=== PATIENT | female | born 1955 | race Two or more races ===

== ENCOUNTER 2017-01-22 05:01 | Emergency (ER) | payer SELFPAY ==
[~2017-01-22] VITALS: Ht 162.6 cm; Wt 68.0 kg
[2017-01-22 09:27] VITALS: BP 101/68
== END 2017-01-22 08:17 | disposition home or self-care (01) ==
LOC: EDBD 05:01 → ER 05:15
DX: F41.9 Anxiety disorder, unspecified (principal); G47.00 Insomnia, unspecified; Z90.49 Acquired absence of other specified parts of digestive tract

== ENCOUNTER 2019-05-19 10:21 | Emergency (ER) | payer MEDICAID, OTHER ==
[~2019-05-19] VITALS: Ht 160 cm; Wt 63.5 kg
[2019-05-19 11:08] LABS: Basophils # (auto) 0.1 uL; Basophils % (auto) 0.6 % (0.0-2.0); Eosinophils # (auto) 0.3 uL; Eosinophils % (auto) 4.1 % (0.0-7.0); Hematocrit 46.3 % (36.0-46.0); Hemoglobin 15.6 g/dL (12.2-16.2); Lymphocytes # (auto) 1.2 uL; Lymphocytes % (auto) 13.8 % (10.0-50.0); Mean Corpuscular Hemoglobin 31.8 pg (28.0-32.0); Mean Corpuscular Hgb Conc. 33.8 g/dL (32.0-36.0); Mean Corpuscular Volume 94.2 fL (80.0-100.0); Monocytes # (auto) 0.5 uL; Monocytes % (auto) 5.8 % (0.0-12.0); Neutrophils # (auto) 6.4 uL; Neutrophils % (auto) 75.7 % (37.0-80.0); Platelet Count (auto) 223 10^3/uL (140-450); Red Blood Cells 4.91 10^6/uL (4.0-5.20); Red Cell Distribution Width 13.9 % (11.8-14.3); White Blood Cell 8.4 10^3/uL (4.4-10.8)
[2019-05-19 11:25] LABS: INR 1.05 (0.9-1.15); Partial Thromboplastin Time 28.7 sec (23.64-32.05)
[2019-05-19 11:26] LABS: Albumin 3.9 g/dL (3.4-5.0); Anion Gap 6 (5-15); Blood Urea Nitrogen 15 mg/dL (7-18); Calcium 9.7 mg/dL (8.5-10.1); Carbon Dioxide 26 mmol/L (21-32); Chloride 108 mmol/L (98-107); Glucose 100 mg/dL (74-106); Magnesium 2.8 mg/dL (1.6-2.6); Potassium 4.5 mmol/L (3.5-5.1); Salicylate < 1.7 mg/dL (2.8-20.0); Sodium 140 mmol/L (136-145)
[2019-05-19 11:33] LABS: Alanine Aminotransferase 57 U/L (13-56); Alkaline Phosphatase 114 U/L (45-117); Aspartate Aminotransferase 29 U/L (15-37); BUN/Creatinine Ratio 17.2; Bilirubin, Total 0.4 mg/dL (0.2-1.0); Blood Alcohol < 3.0 mg/dL (0-5); GFR African American 85 mL/min; GFR Non-African American 70 mL/min; Total Protein 7.9 g/dL (6.4-8.2)
[2019-05-19 12:00] LABS: Acetaminophen < 2.0 ug/mL (10-30)
[2019-05-19] MEDS ORDERED: SODIUM CHLORIDE 0.9% 500 ML IV ONE (14:15)
[2019-05-19] MEDS ORDERED: PIPERACILLIN-TAZOB 3.375GM 100 ML IV ONE (14:15)
[2019-05-19 20:56] LABS: Urine Bacteria MANY /hpf (None Seen); Urine Blood Negative /uL (Negative); Urine Mucus MANY (None Seen); Urine Specific Gravity 1.023 (1.001-1.035); Urine WBC 80 /hpf (0 - 5)
[2019-05-19 20:57] LABS: Urine Hyaline Cast FEW /lpf (0 - 2)
[2019-05-19 21:02] LABS: Amphetamine Screen, Urine NEGATIVE (NEGATIVE); Barbiturate Scree,Urine NEGATIVE (NEGATIVE); Benzodiazephine Screen, Urine NEGATIVE (NEGATIVE); Cannabinoid Screen, Urine NEGATIVE (NEGATIVE); Cocaine Screen, Urine NEGATIVE (NEGATIVE); Opiate Scree,Urine NEGATIVE (NEGATIVE); Phencyclidine Screen, Urine NEGATIVE (NEGATIVE)
[2019-05-20 00:17] VITALS: BP 117/88
== END 2019-05-20 03:36 | disposition home or self-care (01) ==
LOC: EDBD 10:21 → ER 10:21
DX: R41.82 Altered mental status, unspecified (principal); J01.40 Acute pansinusitis, unspecified; R79.89 Other specified abnormal findings of blood chemistry; F41.9 Anxiety disorder, unspecified; F32.9 Major depressive disorder, single episode, unspecified; F25.9 Schizoaffective disorder, unspecified; Z90.49 Acquired absence of other specified parts of digestive tract
CPT/HCPCS: 36415; 70450; 76705; 80053; 80307; 80320; 80329; 81001; 82140; 83605; 83735; 84484; 85025; 85610; 85730; 93005; 96365; 96366; 99284; J2543

== ENCOUNTER 2020-01-11 21:42 | Emergency (ER) | payer MEDICAID ==
[~2020-01-11] VITALS: Ht 165.1 cm; Wt 74.8 kg
[2020-01-11] MEDS ORDERED: PANTOPRAZOLE 40 MG/10 ML VIAL INJ IV STA (22:29)
[2020-01-11] MEDS ORDERED: SODIUM CHLORIDE 0.9% 500 ML IVB ONE (22:30)
[2020-01-11] MEDS ORDERED: MORPHINE SULFATE 4 MG/ML SYR/VIAL IV ONE (22:30)
[2020-01-11] MEDS ORDERED: ONDANSETRON HCL 4 MG/2 ML VIAL IV ONE (22:30)
[2020-01-11 22:37] LABS: Basophils # (auto) 0.1 10 ^3/uL (0-0.2); Basophils % (auto) 1.2 % (0.0-2.0); Eosinophils # (auto) 0.2 10 ^3/uL (0-0.8); Eosinophils % (auto) 2.4 % (0.0-7.0); Hemoglobin 14.7 g/dL (12.2-16.2); Lymphocytes # (auto) 3.2 10 ^3/uL (0.4-5.4); Lymphocytes % (auto) 34.8 % (10.0-50.0); Mean Corpuscular Hemoglobin 32.5 pg (28.0-32.0); Mean Corpuscular Hgb Conc. 34.9 g/dL (32.0-36.0); Mean Corpuscular Volume 93.2 fL (80.0-100.0); Monocytes # (auto) 0.7 10 ^3/uL (0-1.3); Monocytes % (auto) 7.1 % (0.0-12.0); Neutrophils % (auto) 54.5 % (37.0-80.0); Platelet Count (auto) 210 10^3/uL (140-450); Red Cell Distribution Width 13.4 % (11.8-14.3); White Blood Cell 9.2 10^3/uL (4.4-10.8)
[2020-01-11 22:47] LABS: Urine Bacteria MANY /hpf (None Seen); Urine Blood TRACE /uL (Negative); Urine Specific Gravity 1.008 (1.001-1.035); Urine WBC 13 /hpf (0 - 5)
[2020-01-11 22:54] LABS: Alanine Aminotransferase 78 U/L (13-56); Albumin 3.8 g/dL (3.4-5.0); Amylase 85 U/L (25-115); Anion Gap 7 (5-15); Aspartate Aminotransferase 30 U/L (15-37); BUN/Creatinine Ratio 14.5; Blood Urea Nitrogen 11 mg/dL (7-18); Calcium 8.6 mg/dL (8.5-10.1); Carbon Dioxide 31 mmol/L (21-32); Chloride 107 mmol/L (98-107); GFR African American 99 mL/min; GFR Non-African American 82 mL/min; Glucose 94 mg/dL (74-106); Lipase 100 U/L (73-393); Magnesium 2.8 mg/dL (1.6-2.6); Sodium 145 mmol/L (136-145)
[2020-01-11 22:57] LABS: Potassium 2.7 mmol/L (3.5-5.1)
[2020-01-11 23:01] LABS: Alkaline Phosphatase 110 U/L (45-117); Bilirubin, Total 0.4 mg/dL (0.2-1.0); Total Protein 7.2 g/dL (6.4-8.2)
[2020-01-11 23:42] LABS: INR 0.97 (0.9-1.15); Partial Thromboplastin Time 24.2 sec (23.0-31.2)
[2020-01-12] MEDS ORDERED: SODIUM CHLORIDE 0.9% 1,000 ML IV ONE (00:45)
[2020-01-12] MEDS ORDERED: POTASSIUM EFFERVESENT TAB 25 MEQ GT ONE (00:45)
[2020-01-12] MEDS ORDERED: cefTRIAXone 1GM/50ML D5W 50 ML IV ONE (00:45)
[2020-01-12] MEDS ORDERED: POTASSIUM CHL 20MEQ/100ML 100 ML IV ONE (00:45)
[2020-01-12 03:00] VITALS: BP 134/77
== END 2020-01-12 04:57 | disposition home or self-care (01) ==
LOC: EDBD 21:42 → ER 21:49
DX: N39.0 Urinary tract infection, site not specified (principal); E87.6 Hypokalemia
CPT/HCPCS: 36415; 74176; 80053; 81001; 82150; 82962; 83605; 83690; 83735; 84484; 85025; 85610; 85730; 87040; 96361; 96365; 96366; 96368; 96375; 99285; C9113; J0696; J2270; J2405; J3480; J7030

== ENCOUNTER 2021-01-15 09:29 | Emergency (ER) | payer MEDICAID ==
[~2021-01-15] VITALS: Ht 160 cm; Wt 68.0 kg
[2021-01-15 10:14] LABS: Basophils # (auto) 0 10 ^3/uL (0-0.2); Basophils % (auto) 0.7 % (0.0-2.0); Eosinophils # (auto) 0.4 10 ^3/uL (0-0.8); Eosinophils % (auto) 7.2 % (0.0-7.0); Hematocrit 42.7 % (36.0-46.0); Hemoglobin 14.5 g/dL (12.2-16.2); Lymphocytes # (auto) 1.8 10 ^3/uL (0.4-5.4); Lymphocytes % (auto) 32.2 % (10.0-50.0); Mean Corpuscular Hemoglobin 32.1 pg (28.0-32.0); Mean Corpuscular Hgb Conc. 33.9 g/dL (32.0-36.0); Mean Corpuscular Volume 94.9 fL (80.0-100.0); Monocytes # (auto) 0.4 10 ^3/uL (0-1.3); Monocytes % (auto) 6.8 % (0.0-12.0); Neutrophils % (auto) 53.1 % (37.0-80.0); Nucleated Red Blood Cells % 0.1 %; Red Cell Distribution Width 12.7 % (11.8-14.3); White Blood Cell 5.6 10^3/uL (4.4-10.8)
[2021-01-15 10:15] LABS: Urine Bacteria NONE SEEN /hpf (None Seen); Urine Blood 1+ /uL (Negative); Urine Hyaline Cast FEW /lpf (0 - 2); Urine Mucus FEW (None Seen); Urine Specific Gravity 1.014 (1.001-1.035); Urine WBC 11 /hpf (0 - 5)
[2021-01-15 10:28] LABS: Chloride 112 mmol/L (98-107); Potassium 3.4 mmol/L (3.5-5.1); Sodium 143 mmol/L (136-145)
[2021-01-15 10:39] LABS: Alanine Aminotransferase 38 U/L (13-56); Albumin 3.8 g/dL (3.4-5.0); Alkaline Phosphatase 130 U/L (45-117); Amylase 66 U/L (25-115); Anion Gap 4 (5-15); Aspartate Aminotransferase 28 U/L (15-37); BUN/Creatinine Ratio 14.9; Bilirubin, Total 0.5 mg/dL (0.2-1.0); Blood Urea Nitrogen 13 mg/dL (7-18); Calcium 9.2 mg/dL (8.5-10.1); Carbon Dioxide 27 mmol/L (21-32); GFR African American 85 mL/min; GFR Non-African American 70 mL/min; Glucose 78 mg/dL (74-106); Lipase 186 U/L (73-393); Magnesium 2.5 mg/dL (1.6-2.6); Total Protein 7.7 g/dL (6.4-8.2)
[2021-01-15] MEDS ORDERED: LIDOCAINE VISCOUS 2% 15ML UD PO ONE (11:45)
[2021-01-15] MEDS ORDERED: FAMOTIDINE 20 MG TAB PO ONE (11:45)
[2021-01-15] MEDS ORDERED: cefTRIAXone SOD 1,000 MG VL IM ONE (11:45)
[2021-01-15] MEDS ORDERED: LIDOCAINE 2% (LOCAL ANESTH.) PF 5ml SDV ONE (12:14)
[2021-01-15] MEDS ORDERED: LIDOCAINE 2% (LOCAL ANESTH.) PF 5ml SDV IJ ONE (12:30)
[2021-01-15] MEDS ORDERED: IOHEXOL 300 MG/ML 100ML BOTTLE IJ ONE (14:00)
[2021-01-15 15:30] VITALS: BP 130/85
== END 2021-01-15 16:51 | disposition home or self-care (01) ==
LOC: ER 09:29
DX: N39.0 Urinary tract infection, site not specified (principal); J45.909 Unspecified asthma, uncomplicated; I10 Essential (primary) hypertension; Z90.49 Acquired absence of other specified parts of digestive tract
CPT/HCPCS: 36415; 74177; 80053; 81001; 82150; 83605; 83690; 83735; 84484; 85025; 87086; 93005; 96372; 99285; J0696; J2001; Q9967

== ENCOUNTER 2022-03-06 11:08 | Emergency (ER) | payer MEDICAID ==
[~2022-03-06] VITALS: Ht 157.5 cm; Wt 68.1 kg
[2022-03-06 12:18] VITALS: BP 129/80
[2022-03-06] MEDS ORDERED: methylPREDNISolone SOD SUCC 125 MG/2 ML VL IM ONE (12:45)
[2022-03-06] MEDS ORDERED: IPRATROPIUM BROM 0.5 MG/2.5ML INH SOL NEB ONE (12:45)
[2022-03-06] MEDS ORDERED: ALBUTEROL SULF 2.5 MG/0.5ML(0.5%) NEB SOLN NEB ONE (12:45)
[2022-03-06] MEDS ORDERED: ALBU108A5 IN (13:25)
[2022-03-06] MEDS ORDERED: AZIT250T8 PO (13:25)
[2022-03-06] MEDS ORDERED: METH4PAK PO (13:25)
== END 2022-03-06 13:36 | disposition home or self-care (01) ==
LOC: ER 11:13
DX: J45.901 Unspecified asthma with (acute) exacerbation (principal); I10 Essential (primary) hypertension; Z90.49 Acquired absence of other specified parts of digestive tract
CPT/HCPCS: 71046; 94640; 96372; 99283; J2930; J7644

== ENCOUNTER 2022-09-01 09:27 | Emergency (ER) | payer MEDICAID ==
[~2022-09-01] VITALS: Ht 162.6 cm; Wt 69.6 kg
[~2022-09-01 09:27] MED LIST: ALBU108A5 IN; AZIT250T8 PO; METH4PAK PO
[2022-09-01 10:36] LABS: Basophils # (auto) 0.1 10 ^3/uL (0-0.2); Basophils % (auto) 0.7 % (0.0-2.0); Eosinophils # (auto) 0.7 10 ^3/uL (0-0.8); Eosinophils % (auto) 7.6 % (0.0-7.0); Hematocrit 40.8 % (36.0-46.0); Hemoglobin 13.9 g/dL (12.2-16.2); Lymphocytes # (auto) 1.7 10 ^3/uL (0.4-5.4); Lymphocytes % (auto) 18.7 % (10.0-50.0); Mean Corpuscular Hemoglobin 31.6 pg (28.0-32.0); Mean Corpuscular Hgb Conc. 34.2 g/dL (32.0-36.0); Mean Corpuscular Volume 92.5 fL (80.0-100.0); Monocytes # (auto) 0.6 10 ^3/uL (0-1.3); Monocytes % (auto) 6.3 % (0.0-12.0); Neutrophils # (auto) 6.2 10 ^3/uL (1.6-8.6); Neutrophils % (auto) 66.7 % (37.0-80.0); Red Blood Cells 4.41 10^6/uL (4.0-5.20); Red Cell Distribution Width 13.9 % (11.8-14.3); White Blood Cell 9.2 10^3/uL (4.4-10.8)
[2022-09-01 11:00] LABS: Albumin 3.7 g/dL (3.4-5.0); BUN/Creatinine Ratio 16.5 (10.0-20.0); Calcium 8.9 mg/dL (8.5-10.1); Potassium 3.6 mmol/L (3.5-5.1)
[2022-09-01 11:11] LABS: Bilirubin, Total 0.6 mg/dL (0.2-1.0); Total Protein 7.8 g/dL (6.4-8.2)
[2022-09-01 12:00] LABS: Urine Bacteria FEW /hpf (None Seen); Urine Blood 1+ /uL (Negative); Urine Hyaline Cast FEW /lpf (0 - 2); Urine Mucus FEW (None Seen); Urine Specific Gravity 1.027 (1.001-1.035); Urine WBC 125 /hpf (0 - 5)
[2022-09-01] MEDS ORDERED: CIPR-173 PO (12:13)
[2022-09-01 12:48] VITALS: BP 125/87
== END 2022-09-01 12:51 | disposition home or self-care (01) ==
LOC: ER 09:27
DX: N39.0 Urinary tract infection, site not specified (principal); R10.2 Pelvic and perineal pain; F41.9 Anxiety disorder, unspecified; J45.909 Unspecified asthma, uncomplicated; F32.9 Major depressive disorder, single episode, unspecified; I10 Essential (primary) hypertension; Z90.49 Acquired absence of other specified parts of digestive tract
CPT/HCPCS: 36415; 74176; 80053; 81001; 85025

== ENCOUNTER 2022-10-18 08:42 | Emergency (ER) | payer MEDICAID ==
[~2022-10-18] VITALS: Ht 152.4 cm; Wt 69.0 kg
[~2022-10-18 08:42] MED LIST changes: +AZIT-81 PO; -AZIT250T8 PO; +CIPR-173 PO
[2022-10-18 09:28] LABS: Urine Bacteria MOD /hpf (None Seen); Urine Blood 2+ /uL (Negative); Urine Mucus FEW (None Seen); Urine Specific Gravity 1.024 (1.001-1.035); Urine WBC 53 /hpf (0 - 5)
[2022-10-18] MEDS ORDERED: ACETAMINOPHEN 500 MG TAB PO ONE (09:45)
[2022-10-18] MEDS ORDERED: ACET500T58 PO (10:30)
[2022-10-18] MEDS ORDERED: CEFP100T6 PO (10:30)
[2022-10-18] MEDS ORDERED: KETOROLAC TROMETH 30 MG/ML 1ML VIAL IV ONE (10:45)
[2022-10-18 11:05] VITALS: BP 118/82
[2022-10-18] MEDS ORDERED: HYDROcodone-ACET 5/325MG TAB PO ONE (11:30)
== END 2022-10-18 11:58 | disposition home or self-care (01) ==
LOC: ER 08:42
DX: N39.0 Urinary tract infection, site not specified (principal); F41.9 Anxiety disorder, unspecified; J45.909 Unspecified asthma, uncomplicated; F32.9 Major depressive disorder, single episode, unspecified; I10 Essential (primary) hypertension; Z90.49 Acquired absence of other specified parts of digestive tract; Z79.1 Long term (current) use of non-steroidal anti-inflammatories (NSAID); Z79.899 Other long term (current) drug therapy
CPT/HCPCS: 81001; 87086; 93005; 96374; 99284; J1885

== ENCOUNTER 2022-11-17 07:42 | Emergency (ER) | payer MEDICAID ==
[~2022-11-17] VITALS: Ht 149.9 cm; Wt 69.0 kg
[~2022-11-17 07:42] MED LIST changes: +ACET500T58 PO; +CEFP100T6 PO
[2022-11-17] MEDS ORDERED: DexAMETHasone SOD PHOS 10MG/1ML VIAL INJ IV ONE (08:00)
[2022-11-17 08:16] LABS: Basophils # (auto) 0 10 ^3/uL (0-0.2); Basophils % (auto) 0.7 % (0.0-2.0); Eosinophils # (auto) 0.5 10 ^3/uL (0-0.8); Eosinophils % (auto) 8.4 % (0.0-7.0); Hematocrit 41.9 % (36.0-46.0); Hemoglobin 14.1 g/dL (12.2-16.2); Lymphocytes # (auto) 2.3 10 ^3/uL (0.4-5.4); Lymphocytes % (auto) 38.1 % (10.0-50.0); Mean Corpuscular Hemoglobin 31.7 pg (28.0-32.0); Mean Corpuscular Hgb Conc. 33.8 g/dL (32.0-36.0); Monocytes # (auto) 0.3 10 ^3/uL (0-1.3); Neutrophils # (auto) 2.9 10 ^3/uL (1.6-8.6); Neutrophils % (auto) 47.8 % (37.0-80.0); Nucleated Red Blood Cells % 0.1 %; Red Blood Cells 4.46 10^6/uL (4.0-5.20); Red Cell Distribution Width 14.2 % (11.8-14.3); White Blood Cell 6.1 10^3/uL (4.4-10.8)
[2022-11-17 08:32] LABS: BUN/Creatinine Ratio 10.3 (10.0-20.0); Calcium 9.1 mg/dL (8.5-10.1); Potassium 3.3 mmol/L (3.5-5.1)
[2022-11-17 08:34] LABS: Bilirubin, Total 0.5 mg/dL (0.2-1.0); Total Protein 7.3 g/dL (6.4-8.2)
[2022-11-17] MEDS ORDERED: IPRATROPIUM BROM 0.5 MG/2.5ML INH SOL NEB ONE (08:45)
[2022-11-17] MEDS ORDERED: ALBUTEROL SULF 2.5 MG/0.5ML(0.5%) NEB SOLN NEB ONE (08:45)
[2022-11-17] MEDS ORDERED: IOHEXOL 350 MG/ML 100ML IJ ONE (08:46)
[2022-11-17] MEDS ORDERED: ONDANSETRON HCL 4 MG/2 ML VIAL IV ONE (10:00)
[2022-11-17] MEDS ORDERED: KETOROLAC TROMETH 30 MG/ML 1ML VIAL IV ONE (10:00)
[2022-11-17] MEDS ORDERED: PRED20TA2 PO (10:16)
[2022-11-17] MEDS ORDERED: LEVO500T91 PO (10:16)
[2022-11-17 10:53] LABS: Urine Bacteria FEW /hpf (None Seen); Urine Blood Negative /uL (Negative); Urine Specific Gravity 1.034 (1.001-1.035); Urine WBC 27 /hpf (0 - 5)
[2022-11-17 11:00] VITALS: BP 120/88; PULSE 88; RESP 18; TEMP 98.2; O2SAT 97
== END 2022-11-17 11:02 | disposition admitted as inpatient to this hospital (09) ==
LOC: ER 07:42
DX: J45.901 Unspecified asthma with (acute) exacerbation (principal); F41.9 Anxiety disorder, unspecified; J45.909 Unspecified asthma, uncomplicated; F32.9 Major depressive disorder, single episode, unspecified; Z79.899 Other long term (current) drug therapy; Z90.49 Acquired absence of other specified parts of digestive tract
CPT/HCPCS: 36415; 71045; 71275; 80053; 81001; 83880; 84484; 85025; 85379; 93005; 94640; 96374; 96375; 99285; J1100; J1885; J2405; J7644; Q9967

== ENCOUNTER 2022-12-24 09:21 | Emergency (ER) | payer MEDICAID ==
[~2022-12-24] VITALS: Ht 147.3 cm; Wt 67.2 kg
[~2022-12-24 09:21] MED LIST changes: +LEVO500T91 PO; +PRED20TA2 PO
[2022-12-24 10:02] LABS: Urine Bacteria NONE SEEN /hpf (None Seen); Urine Blood Negative /uL (Negative); Urine Clarity HAZY (Clear); Urine Color Yellow (Yellow); Urine Mucus FEW (None Seen); Urine Protein, UAD TRACE (Negative); Urine Specific Gravity 1.015 (1.001-1.035); Urine Urobilinogen Normal (Negative); Urine WBC 15 /hpf (0 - 5)
[2022-12-24 10:16] LABS: Basophils # (auto) 0 10 ^3/uL (0-0.2); Eosinophils # (auto) 0.2 10 ^3/uL (0-0.8); Eosinophils % (auto) 4.1 % (0.0-7.0); Hematocrit 43.3 % (36.0-46.0); Hemoglobin 14.7 g/dL (12.2-16.2); Lymphocytes % (auto) 45.8 % (10.0-50.0); Mean Corpuscular Hemoglobin 31.7 pg (28.0-32.0); Mean Corpuscular Hgb Conc. 34.1 g/dL (32.0-36.0); Monocytes # (auto) 0.3 10 ^3/uL (0-1.3); Monocytes % (auto) 7.8 % (0.0-12.0); Neutrophils # (auto) 1.8 10 ^3/uL (1.6-8.6); Neutrophils % (auto) 41.3 % (37.0-80.0); Nucleated Red Blood Cells % 0.1 %; Red Blood Cells 4.65 10^6/uL (4.0-5.20); Red Cell Distribution Width 13.9 % (11.8-14.3); White Blood Cell 4.3 10^3/uL (4.4-10.8)
[2022-12-24 10:28] LABS: Alanine Aminotransferase 36 U/L (7-40); Albumin 4.7 g/dL (3.2-4.8); Alkaline Phosphatase 99 U/L (46-116); Anion Gap 5.3 (5-15); Aspartate Aminotransferase 28 U/L (13-40); Blood Urea Nitrogen 9 mg/dL (9-23); Calcium 9.5 mg/dL (8.5-10.1); Carbon Dioxide 26.7 mmol/L (20-30); Chloride 109 mmol/L (98-107); Glucose 77 mg/dL (74-106); Lipase 52 U/L (12-53); Magnesium 2.3 mg/dL (1.6-2.6); Potassium 3.6 mmol/L (3.5-5.1); Sodium 141 mmol/L (136-145)
[2022-12-24 10:29] LABS: Bilirubin, Total 0.7 mg/dL (0.2-1.0); Total Protein 7.6 g/dL (5.7-8.2)
[2022-12-24] MEDS ORDERED: NITR-87 PO (11:02)
[2022-12-24] MEDS ORDERED: IBU600T PO (11:03)
[2022-12-24] MEDS ORDERED: cefTRIAXone SOD 1,000 MG VL IM ONE (11:15)
[2022-12-24 12:25] VITALS: BP 142/101; PULSE 83; RESP 16; O2SAT 98
== END 2022-12-24 13:33 | disposition home or self-care (01) ==
LOC: ER 09:21
DX: N39.0 Urinary tract infection, site not specified (principal); I10 Essential (primary) hypertension; J45.909 Unspecified asthma, uncomplicated; Z90.49 Acquired absence of other specified parts of digestive tract; Z79.2 Long term (current) use of antibiotics; Z79.899 Other long term (current) drug therapy
CPT/HCPCS: 36415; 74176; 80053; 81001; 83690; 83735; 85025; 96372; 99285; J0696

== ENCOUNTER 2023-06-10 08:51 | Emergency (ER) | payer MEDICAID ==
[~2023-06-10] VITALS: Ht 152.4 cm; Wt 70.8 kg
[~2023-06-10 08:51] MED LIST changes: +IBU600T PO; +IBUP1TAB5 PO; +NITR-87 PO; +OSEL75CA5 PO
[2023-06-10 09:13] VITALS: BP 114/78; PULSE 106; RESP 16; O2SAT 99
[2023-06-10 09:28] LABS: Urine Bacteria FEW /hpf (None Seen); Urine Blood 2+ /uL (Negative); Urine Clarity Clear (Clear); Urine Color Yellow (Yellow); Urine Protein, UAD TRACE (Negative); Urine Specific Gravity 1.011 (1.001-1.035); Urine Urobilinogen Normal (Negative); Urine WBC 14 /hpf (0 - 5)
[2023-06-10] MEDS ORDERED: ACET-1080 PO (09:57)
[2023-06-10] MEDS ORDERED: BACDST PO (09:57)
[2023-06-10 09:58] VITALS: TEMP 97.8
[2023-06-10] MEDS: cefTRIAXone SOD 1,000 MG VL IM ONE (09:58)
[2023-06-10] MEDS: ACETAMINOPHEN 500 MG TAB PO ONE (09:58)
== END 2023-06-10 10:11 | disposition home or self-care (01) ==
LOC: ER 08:51
DX: N39.0 Urinary tract infection, site not specified (principal); R07.89 Other chest pain; I10 Essential (primary) hypertension; J45.909 Unspecified asthma, uncomplicated; Z90.49 Acquired absence of other specified parts of digestive tract; Z79.1 Long term (current) use of non-steroidal anti-inflammatories (NSAID); Z79.2 Long term (current) use of antibiotics; Z79.899 Other long term (current) drug therapy
CPT/HCPCS: 71046; 81001; 96372; 99284; J0696

== ENCOUNTER 2023-09-15 10:27 | Emergency (ER) | payer MEDICAID ==
[~2023-09-15] VITALS: Ht 147.3 cm; Wt 66.8 kg
[~2023-09-15 10:27] MED LIST changes: +ACET-1080 PO; +AZIT-185 PO; -AZIT-81 PO; +BACDST PO
[2023-09-15 13:23] VITALS: BP 122/84; PULSE 81; RESP 16; TEMP 98.5; O2SAT 97
[2023-09-15] MEDS ORDERED: NABU-72 PO (14:18)
== END 2023-09-15 14:31 | disposition home or self-care (01) ==
LOC: ER 10:27
DX: M72.2 Plantar fascial fibromatosis (principal); M77.32 Calcaneal spur, left foot; F41.9 Anxiety disorder, unspecified; J45.909 Unspecified asthma, uncomplicated; F32.A Depression, unspecified; I10 Essential (primary) hypertension; Z79.899 Other long term (current) drug therapy; Z90.49 Acquired absence of other specified parts of digestive tract
CPT/HCPCS: 73630

== ENCOUNTER 2023-10-06 11:12 | Emergency (ER) | payer MEDICAID ==
[~2023-10-06] VITALS: Ht 121.9 cm; Wt 66.4 kg
[~2023-10-06 11:12] MED LIST changes: +NABU-72 PO
[2023-10-06 12:14] LABS: Urine Bacteria None Seen /hpf (None Seen)
[2023-10-06 12:47] LABS: Urine Amorphous Crystal FEW /hpf (None Seen); Urine Blood Negative /uL (Negative); Urine Clarity Ex.Turbid (Clear); Urine Color Light-Yellow (Yellow); Urine Protein, UAD 1+ (Negative); Urine Specific Gravity 1.018 (1.001-1.035); Urine Urobilinogen Normal (Negative); Urine WBC 46 /hpf (0 - 5); Urine pH 8.5 (5.0-9.0)
[2023-10-06 13:15] LABS: Basophils # (auto) 0 10 ^3/uL (0-0.2); Basophils % (auto) 0.7 % (0.0-2.0); Eosinophils # (auto) 0.5 10 ^3/uL (0-0.8); Eosinophils % (auto) 7.5 % (0.0-7.0); Hematocrit 41.9 % (36.0-46.0); Lymphocytes # (auto) 2.4 10 ^3/uL (0.4-5.4); Lymphocytes % (auto) 35.6 % (10.0-50.0); Mean Corpuscular Hemoglobin 31.8 pg (28.0-32.0); Mean Corpuscular Hgb Conc. 33.5 g/dL (32.0-36.0); Mean Corpuscular Volume 94.9 fL (80.0-100.0); Monocytes # (auto) 0.6 10 ^3/uL (0-1.3); Monocytes % (auto) 8.2 % (0.0-12.0); Neutrophils # (auto) 3.3 10 ^3/uL (1.6-8.6); Nucleated Red Blood Cells % 0.1 %; Red Blood Cells 4.41 10^6/uL (4.0-5.20); Red Cell Distribution Width 13.8 % (11.8-14.3); White Blood Cell 6.8 10^3/uL (4.4-10.8)
[2023-10-06 13:38] LABS: Alanine Aminotransferase 39 U/L (7-40); Albumin 4.5 g/dL (3.2-4.8); Alkaline Phosphatase 128 U/L (46-116); Anion Gap 7 (5-15); Aspartate Aminotransferase 33 U/L (13-40); BUN/Creatinine Ratio 16.9 (10.0-20.0); Bilirubin, Total 0.5 mg/dL (0.2-1.0); Blood Urea Nitrogen 13 mg/dL (9-23); Calcium 9.5 mg/dL (8.7-10.4); Carbon Dioxide 23 mmol/L (20-30); Chloride 111 mmol/L (98-107); Glucose 93 mg/dL (74-106); Lipase 42 U/L (12-53); Potassium 3.7 mmol/L (3.5-5.1); Sodium 141 mmol/L (136-145); Total Protein 7.3 g/dL (5.7-8.2)
[2023-10-06 15:49] VITALS: BP 132/93; PULSE 83; RESP 20; TEMP 97.3; O2SAT 99
== END 2023-10-06 16:01 | disposition home or self-care (01) ==
LOC: ER 11:15
DX: K76.89 Other specified diseases of liver (principal); N28.1 Cyst of kidney, acquired; J45.909 Unspecified asthma, uncomplicated
CPT/HCPCS: 36415; 71045; 74176; 80053; 81001; 83605; 83690; 84484; 85025

== ENCOUNTER 2023-12-17 17:39 | Inpatient (IN) | payer MEDICAID ==
[~2023-12-17] VITALS: Ht 152.4 cm; Wt 69.7 kg
[2023-12-17 18:31] LABS: Basophils # (auto) 0.1 10 ^3/uL (0-0.2); Basophils % (auto) 0.8 % (0.0-2.0); Eosinophils # (auto) 0.5 10 ^3/uL (0-0.8); Eosinophils % (auto) 7.1 % (0.0-7.0); Hematocrit 41.5 % (36.0-46.0); Hemoglobin 14.3 g/dL (12.2-16.2); Lymphocytes # (auto) 2.6 10 ^3/uL (0.4-5.4); Lymphocytes % (auto) 37.7 % (10.0-50.0); Mean Corpuscular Hemoglobin 32.4 pg (28.0-32.0); Mean Corpuscular Hgb Conc. 34.5 g/dL (32.0-36.0); Monocytes # (auto) 0.5 10 ^3/uL (0-1.3); Monocytes % (auto) 7.2 % (0.0-12.0); Neutrophils # (auto) 3.3 10 ^3/uL (1.6-8.6); Neutrophils % (auto) 47.2 % (37.0-80.0); Nucleated Red Blood Cells % 0.3 %; Platelet Count (auto) 182 10^3/uL (140-450); Red Blood Cells 4.42 10^6/uL (4.0-5.20); Red Cell Distribution Width 13.8 % (11.8-14.3)
[2023-12-17 18:47] LABS: Alanine Aminotransferase 54 U/L (7-40); Alkaline Phosphatase 134 U/L (46-116); Calcium 9.4 mg/dL (8.7-10.4); Carbon Dioxide 21 mmol/L (20-30); Chloride 111 mmol/L (98-107)
[2023-12-17 18:48] LABS: Albumin 4.5 g/dL (3.2-4.8); Anion Gap 10 (5-15); Aspartate Aminotransferase 42 U/L (13-40); BUN/Creatinine Ratio 21.5 (10.0-20.0); Bilirubin, Total 0.5 mg/dL (0.2-1.0); Blood Urea Nitrogen 17 mg/dL (9-23); Glucose 102 mg/dL (74-106); Lipase 53 U/L (12-53); Potassium 3.7 mmol/L (3.5-5.1); Sodium 142 mmol/L (136-145); Total Protein 7.2 g/dL (5.7-8.2)
[2023-12-17] MEDS ORDERED: MORPHINE SULFATE 4 MG/ML SYR/VIAL IM ONE (20:00)
[2023-12-17] MEDS: ONDANSETRON HCL 4 MG/2 ML VIAL IM ONE (20:00)
[2023-12-17] MEDS: HYDROcodone-ACET 5/325MG TAB PO ONE (20:45)
[2023-12-17 21:13] LABS: Urine Bacteria None Seen /hpf (None Seen)
[2023-12-17 21:28] LABS: Urine Amorphous Crystal FEW /hpf (None Seen); Urine Blood Negative /uL (Negative); Urine Clarity Turbid (Clear); Urine Color Light-Yellow (Yellow); Urine Protein, UAD Negative (Negative); Urine Urobilinogen Normal (Negative); Urine WBC 7 /hpf (0 - 5)
[2023-12-18] MEDS ORDERED: ONDANSETRON HCL 4 MG/2 ML VIAL IV PRN (01:00)
[2023-12-18] MEDS ORDERED: DOCUSATE SOD 100 MG CAP PO PRN ×2 (01:00→09:15)
[2023-12-18] MEDS ORDERED: IBUPROFEN 600 MG TAB PO PRN (01:00)
[2023-12-18] MEDS ORDERED: NITROGLYCERIN 0.4 MG SL TAB SL PRN (01:00)
[2023-12-18] MEDS ORDERED: MORPHINE SULFATE INJ 2 MG/ml SYRG IV PRN ×2 (01:00)
[2023-12-18] MEDS: SODIUM CHLORIDE 0.9% 1,000 ML IV SCH (01:20)
[2023-12-18] MEDS: HYDROcodone-ACET 5/325MG TAB PO PRN (02:43)
[2023-12-18 03:34] VITALS: BP 123/79; PULSE 80; RESP 18; TEMP 98; O2SAT 97
[2023-12-18 08:00] VITALS: PULSE 93; RESP 18; O2SAT 95
[2023-12-18 09:06] LABS: Basophils # (auto) 0.1 10 ^3/uL (0-0.2); Basophils % (auto) 0.7 % (0.0-2.0); Eosinophils # (auto) 0.6 10 ^3/uL (0-0.8); Eosinophils % (auto) 7.5 % (0.0-7.0); Hematocrit 42.8 % (36.0-46.0); Lymphocytes # (auto) 2.7 10 ^3/uL (0.4-5.4); Lymphocytes % (auto) 35.5 % (10.0-50.0); Mean Corpuscular Hemoglobin 32.6 pg (28.0-32.0); Mean Corpuscular Volume 93.2 fL (80.0-100.0); Monocytes # (auto) 0.5 10 ^3/uL (0-1.3); Monocytes % (auto) 7.1 % (0.0-12.0); Neutrophils # (auto) 3.7 10 ^3/uL (1.6-8.6); Neutrophils % (auto) 49.2 % (37.0-80.0); Nucleated Red Blood Cells % 0.1 %; Platelet Count (auto) 193 10^3/uL (140-450); Red Blood Cells 4.59 10^6/uL (4.0-5.20); Red Cell Distribution Width 13.7 % (11.8-14.3); White Blood Cell 7.6 10^3/uL (4.4-10.8)
[2023-12-18 09:19] LABS: INR 0.99 (0.9-1.15); Partial Thromboplastin Time 27.7 SEC (24.5-34.5); Prothrombin Time 10.5 sec (9.3-11.8)
[2023-12-18 09:23] LABS: Alanine Aminotransferase 47 U/L (7-40); Albumin 4.5 g/dL (3.2-4.8); Alkaline Phosphatase 132 U/L (46-116); Anion Gap 6 (5-15); Aspartate Aminotransferase 41 U/L (13-40); BUN/Creatinine Ratio 17.9 (10.0-20.0); Bilirubin, Total 0.8 mg/dL (0.2-1.0); Blood Alcohol < 3.0 mg/dL (<10); Blood Urea Nitrogen 12 mg/dL (9-23); Calcium 9.3 mg/dL (8.7-10.4); Carbon Dioxide 24 mmol/L (20-30); Chloride 109 mmol/L (98-107); Glucose 93 mg/dL (74-106); Magnesium 2.1 mg/dL (1.6-2.6); Potassium 3.6 mmol/L (3.5-5.1); Sodium 139 mmol/L (136-145); Total Protein 7.3 g/dL (5.7-8.2)
[2023-12-18] MEDS: LACTULOSE 20Gm/30ML SOLN PO SCH (12:32)
[2023-12-18] MEDS ORDERED: MONT-8 PO (13:28)
[2023-12-18] MEDS ORDERED: ATOR40TA52 PO (13:28)
[2023-12-18] MEDS ORDERED: HYDR50TA69 PO (13:28)
[2023-12-18] MEDS ORDERED: QUET300T24 PO (13:28)
[2023-12-18] MEDS ORDERED: AMLO1TAB21 PO (13:28)
[2023-12-18] MEDS ORDERED: LEVO25TA6 PO (13:28)
[2023-12-18] MEDS ORDERED: LORA-1123 PO (13:28)
[2023-12-18] MEDS: ACETAMINOPHEN 325 MG TAB PO PRN (14:31)
[2023-12-18] MEDS ORDERED: PANT40T PO (16:24)
[2023-12-18 16:50] VITALS: BP 144/47; PULSE 77; RESP 16; TEMP 98.4; O2SAT 98
[2023-12-18] MEDS: PANTOPRAZOLE 40 MG TAB PO SCH (17:58)
[2023-12-18 18:01] VITALS: BP 144/47; PULSE 77; RESP 16; TEMP 97.4; O2SAT 98
[2023-12-20 08:42] LABS: Hepatitis B Surface Antibody Negative (Negative)
[2023-12-20 08:54] LABS: Hepatitis B Surface Antigen Negative (Negative)
[2023-12-20 09:16] LABS: Hepatitis C Antibody Negative (Negative)
== END 2023-12-18 18:42 | disposition home or self-care (01) | DRG 241 ==
LOC: ER 17:39 → OVERFLOW 12-18 01:10 → EAST 12-18 03:02
PROVIDERS: ADMIT Nurse Practitioner Family; ATTEND Nurse Practitioner Family
DX: K29.70 Gastritis, unspecified, without bleeding (principal); K76.0 Fatty (change of) liver, not elsewhere classified; E03.9 Hypothyroidism, unspecified; F32.A Depression, unspecified; F41.9 Anxiety disorder, unspecified; I10 Essential (primary) hypertension; E66.9 Obesity, unspecified; R74.01 Elevation of levels of liver transaminase levels; J45.909 Unspecified asthma, uncomplicated; Z79.1 Long term (current) use of non-steroidal anti-inflammatories (NSAID); Z79.899 Other long term (current) drug therapy; Z90.49 Acquired absence of other specified parts of digestive tract; Z87.440 Personal history of urinary (tract) infections; Z68.30 Body mass index [BMI] 30.0-30.9, adult
CPT/HCPCS: 36415; 71045; 74176; 76705; 80053; 80320; 81001; 83605; 83690; 83735; 84484; 85025; 85610; 85730; 86706; 86803; 87340; 93005; G0378; J2405

== ENCOUNTER 2024-03-26 17:59 | Inpatient (IN) | payer MEDICAID ==
[~2024-03-26] VITALS: Ht 162.6 cm; Wt 69.1 kg
[~2024-03-26 17:59] MED LIST changes: -ACET-1080 PO; -ACET500T58 PO; -ALBU108A5 IN; +AMLO1TAB21 PO; +ATOR10TA PO; +ATOR40TA52 PO; -AZIT-185 PO; -BACDST PO; +BUDE1AER5 IN; -CEFP100T6 PO; -CIPR-173 PO; +FLUT50SP31 EACHNOSTRI; +HYDR50TA69 PO; -IBU600T PO; +IBUP-1453 PO; -IBUP1TAB5 PO; +LEVO25TA6 PO; -LEVO500T91 PO; +LORA-1123 PO; +LORA-622 PO; -METH4PAK PO; +MONT-8 PO; -NABU-72 PO; -NITR-87 PO; +OMEP-448 PO; -OSEL75CA5 PO; +PANT40T PO; +POLY1POW7 PO; -PRED20TA2 PO; +QUET300T24 PO; +TRI05TP TOP; +VENL75CA78 PO
--- NOTE | 2024-03-26 18:43 | ED.PDOC ---
GI ASSESSMENT HPI Comments 68-year-old female with PMHx gastritis presents with a chief complaint of abdominal pain x yesterday with associated vomiting and constipation. Patient states that her pain is localized to her epigastric region, non-radiating, is constant in timing and reports her pain a 11/26. Patient mentions that she has had gastritis before in the past. Patient also reports that lately she has been constipated and has not had a bowel movement. Chief Complaint: Abdominal Pain Time Seen by MD: 18:30 Primary Care Provider: DONALDSON Reviewed Notes: Medications, Allergies Allergies: Coded Allergies: NO KNOWN ALLERGIES (Unverified , 01/22/17) Home Meds Active Scripts Pantoprazole Sodium Sesquihydr (Pantoprazole Sodium) 40 Mg Tab, 40 MG PO DAILY for 30 Days, #30 TAB 2 Refills Prov:EDWINJEMMA RESIDENT 12/18/23 Reported Medications Atorvastatin Calcium (ATORVASTATIN CALCIUM) 40 Mg Tab, 40 MG PO HS, TAB 12/18/23 Montelukast Sodium (MONTELUKAST SODIUM) 10 Mg Tab, 1 TAB PO DAILY for allergies 12/18/23 Lorazepam (Lorazepam) 1 Mg Tab, 1 TAB PO DAILYPRN PRN for ANXIETY 12/18/23 Amlodipine Besylate (Amlodipine Besylate) 2.5 Mg Tab, 1 TAB PO DAILY 12/18/23 Quetiapine Fumerate (QUETIAPINE FUMARATE) 300 Mg Tab, 1 TAB PO 12/18/23 Levothyroxine Sodium (Levothyroxine Sodium) 25 Mcg Tab, 1 TAB PO DAILY 12/18/23 Hydroxyzine Hcl (Hydroxyzine Hcl) 50 Mg Tab, 1 TAB PO TID 12/18/23 Information Source: Patient Mode of Arrival: EMS Timing: Days Duration: Since onset Prehospital treatment: None Quality: Aching Vomitus: Bilious Stool: Impaction Severity: Moderate Recent: None Recent Hx of: None Pain Location: Epigastric Past Medical History PAST MEDICAL HISTORY: Anxiety, Asthma, Depression, HTN, UTI'S Surgical History: Cholecystectomy [employer] History: No Pertinent [employer] History Family History Family History: Reviewed,noncontributory to illness Social History Smoker: Non-Smoker Alcohol: Denies ETOH Use Drugs: Denies Drug Use Lives In: Home Constitutional: denies: chills, diaphoresis, fatigue, fever, malaise, sweats, weakness, others EENTM: denies: blurred vision, double vision, ear bleeding, ear discharge, ear drainage, ear pain, ear ringing, eye pain, eye redness, hearing loss, mouth pain, mouth swelling, nasal discharge, nose bleeding, nose congestion, nose pain, photophobia, tearing, throat pain, throat swelling, voice changes, others Respiratory: denies: cough, hemoptysis, orthopnea, SOB at rest, shortness of breath, SOB with excertion, stridor, wheezing, others Cardiovascular: denies: chest pain, dizzy spells, diaphoresis, Dyspnea on exertion, edema, irregular heart beat, left arm pain, lightheadedness, palpitations, PND, syncope, others Gastrointestinal: reports: abdominal pain, constipated, vomiting; denies: abdo men distended, blood streaked bowels, diarrhea, dysphagia, difficulty swallowing, hematemesis, melena, nausea, poor appetite, poor fluid intake, rectal bleeding, rectal pain, others Genitourinary: denies: abnormal vagina bleeding, burning, dyspareunia, dysuria, flank pain, frequency, hematuria, incontinence, pain, , vagina discharge, urgency, others Neurological: denies: dizziness, fainting, headache, left sided numbness, left sided weakness, numbness, paresthesia, pre-existing deficit, right sided numbness, right sided weakness, seizure, speech problems, tingling, tremors, weakness, others Musculoskeletal: denies: back pain, gout, joint pain, joint swelling, muscle pain, muscle stiffness, neck pain, others Integumetry: denies: bruises, change in color, change in hair/nails, dryness, laceration, lesions, lumps, rash, wounds, others Allergic/Immunocompromised: denies: Difficulty Healing, Frequent Infections, Hives, Itching, others Hematologic/Lymphatic: denies: anemia, blood clots, easy bleeding, easy bruising, swollen glands, others Endocrine: denies: excessive hunger, excessive sweating, excessive thirst, excessive urination, flushing, intolerance to cold, intolerance to heat, unexplained weight gain, unexplained weight loss, others Psychiatric: denies: anxiety, bipolar disorder, depression, hopeless, panic disorder, schizophrenia, sleepless, suicidal, others All Other Systems: Reviewed and Negative Physical Exam General Appearance: No Apparent Distress, Normal HEENT: Normal ENT Inspection, Pharynx Normal, TMs Normal Neck: Full Range of Motion, Non-Tender, Normal, Normal Inspection Respiratory: Chest Non-Tender, Lungs Clear, No Accessory Muscle Use, No Respiratory Distress, Normal Breath Sounds Cardiovascular: No Edema, No JVD, No Murmur, No Gallop, Normal Peripheral Pulses, Regular Rate/Rhythm Breast Exam: Deferred Gastrointestinal: No Organomegaly, Non Tender, No Pulsatile Mass, Normal Bowel Sounds, Soft Genitalia: Deferred Pelvic: Deferred Rectal: Deferred Extremities: No calf tenderness, Normal capillary refill, Normal inspection, Normal range of motion, Non-tender, No pedal edema Musculoskeletal : Apperance: Normal Neurologic: Alert, head control clerk II-XII nml as Tested, No Motor Deficits, Normal Affect, Normal Mood, No Sensory Deficits Cerebellar Function: Normal Reflexes: Normal Skin: Dry, Normal Color, Warm Lymphatic: No Adenopathy Was a procedure done? Was a procedure done?: No GI differential Dx Differential Diagnosis: Cholecystitis, Constipation, Gastritis/PUD, Gastroenteritis, Dehydration, Electrolyte Imbalance, Food Poisoning X-Ray, Labs, Meds, VS Vital Signs Date Time Temp Pulse Resp B/P (MAP) Pulse Ox O2 Delivery O2 Flow Rate FiO2 03/26/24 21:30 70 18 118/70 03/26/24 20:55 75 18 129/75 03/26/24 20:55 Room Air* 0 21 03/26/24 20:39 98.8 85 18 129/75 (93) 97 98.8 03/26/24 18:13 97.7 87 26 137/97 (110) 94 Lab Test 03/26/24 18:40 Range/Units White Blood Count 16.1 H 4.4-10.8 10^3/uL Red Blood Count 4.94 4.0-5.20 10^6/uL Hemoglobin 15.9 12.2-16.2 g/dL Hematocrit 46.1 H 36.0-46.0 % Mean Corpuscular Volume 93.4 80.0-100.0 fL Mean Corpuscular Hemoglobin 32.2 H 28.0-32.0 pg Mean Corpuscular Hemoglobin Concent 34.4 32.0-36.0 g/dL Red Cell Distribution Width 13.3 11.8-14.3 % Platelet Count 254 140-450 10^3/uL Mean Platelet Volume 8.5 6.9-10.8 fL Neutrophils (%) (Auto) 91.2 H 37.0-80.0 % Lymphocytes (%) (Auto) 5.8 L 10.0-50.0 % Monocytes (%) (Auto) 2.3 0.0-12.0 % Eosinophils (%) (Auto) 0.3 0.0-7.0 % Basophils (%) (Auto) 0.4 0.0-2.0 % Neutrophils # (Auto) 14.6 H 1.6-8.6 10 ^3/uL Lymphocytes # (Auto) 0.9 0.4-5.4 10 ^3/uL Monocytes # (Auto) 0.4 0-1.3 10 ^3/uL Eosinophils # (Auto) 0 0-0.8 10 ^3/uL Basophils # (Auto) 0.1 0-0.2 10 ^3/uL Nucleated Red Blood Cells 0.0 % Sodium Level 141 136-145 mmol/L Potassium Level 3.7 3.5-5.1 mmol/L Chloride Level 104 98-107 mmol/L Carbon Dioxide Level 27 20-31 mmol/L Anion Gap 10 5-15 Blood Urea Nitrogen 12 9-23 mg/dL Creatinine 0.83 0.550-1.02 mg/dL Glomerular Filtration Rate Calc 78 >90 mL/min BUN/Creatinine Ratio 14.5 10.0-20.0 Serum Glucose 139 H 74-106 mg/dL Calcium Level 10.9 H 8.7-10.4 mg/dL Total Bilirubin 0.5 0.2-1.0 mg/dL Aspartate Amino Transferase (AST) 27 13-40 U/L Alanine Aminotransferase (ALT) 33 7-40 U/L Alkaline Phosphatase 160 H 46-116 U/L Total Protein 8.2 5.7-8.2 g/dL Albumin 5.2 H 3.2-4.8 g/dL Lipase 39 12-53 U/L Current Medications Medications (Trade) Dose Ordered Sig/Sugar Route Start Time Stop Time Status Last Admin Sodium Chloride 1,000 ml @ 1,000 mls/hr Q1H ONCE IV 03/26/24 18:30 03/26/24 19:29 DC 03/26/24 20:53 Morphine Sulfate 4 mg ONCE ONCE IV 03/26/24 18:30 03/26/24 18:31 DC 03/26/24 20:55 Ondansetron HCl (Zofran) 4 mg ONCE ONCE IV 03/26/24 18:30 03/26/24 18:31 DC 03/26/24 20:55 Time of 1ST Reevaluation: 19:00 Reevaluation 1ST: Unchanged Patient Education/Counseling: Diagnosis, Treatment, Prognosis Family Education/Counseling: No Family Present Departure 1 Departure Time of Disposition: 22:28 (Patient presented with abdominal pain that was concerning for possible appendicits, gastritis, cholecystitis, colitis, gastroenteritis, sbo, or orther possible surgical emergency. Data: 1. I ordered and reviewed the result of at least 3 labs including a CBC, BMP, and Urinalysis. 2. I independently interpreted the following tests: CT Abdoment and Pelvis is concerning for colitis .Risk:This patient has a high risk of morbidity due to further diagnostic testing or treatment and may suffer from an acute abdominal process disorder. Workup reveals colitis and inability to tolerate p.o. and patient should be admitted for further workup. and possible expert consultation. ) Impression: Primary Impression: Nausea and vomiting Qualified Codes: R11.12 - Projectile vomiting Additional Impressions: Abdominal pain Qualified Codes: R10.84 - Generalized abdominal pain Colitis Disposition: 09 ADMITTED INPATIENT Admit to: Med Surg Condition: Serious Critical Care Note Critical Care Time?: Yes Critical care comment: Intractable abdominal pain Authorized and Performed by: Dayanna Gong MD Total critical care time: Approximately 34 minutes Due to a high probability of clinically significant, life threatening deterioration, the patient required my highest level of preparedness to intervene emergently and I personally spent this critical care time directly and personally managing the patient. This critical care time included obtaining a history; examining the patient; pulse oximetry; ordering and review of studies; arranging urgent treatment with development of a management plan; evaluation of patient's response to treatment; frequent reassessment; and, discussions with other providers. This critical care time was performed to assess and manage the high probability of imminent, life-threatening deterioration that could result in multi-organ failure. It was exclusive of separately billable procedures and treating other patients and teaching time. Please see my other sections and the rest of the note for further information on patient assessment and treatment. Stability Stability form required: No I personally scribed for DAYANNA GONG MD ([email or web address]) on 03/26/24 at 18:43. Electronically submitted by Scar Ulloa ([email or web address]). DAYANNA GONG MD Mar 26, 2024 18:43
[2024-03-26 18:50] LABS: Basophils # (auto) 0.1 10 ^3/uL (0-0.2); Basophils % (auto) 0.4 % (0.0-2.0); Eosinophils # (auto) 0 10 ^3/uL (0-0.8); Eosinophils % (auto) 0.3 % (0.0-7.0); Hematocrit 46.1 % (36.0-46.0); Hemoglobin 15.9 g/dL (12.2-16.2); Lymphocytes # (auto) 0.9 10 ^3/uL (0.4-5.4); Lymphocytes % (auto) 5.8 % (10.0-50.0); Mean Corpuscular Hemoglobin 32.2 pg (28.0-32.0); Mean Corpuscular Hgb Conc. 34.4 g/dL (32.0-36.0); Mean Corpuscular Volume 93.4 fL (80.0-100.0); Monocytes # (auto) 0.4 10 ^3/uL (0-1.3); Monocytes % (auto) 2.3 % (0.0-12.0); Neutrophils # (auto) 14.6 10 ^3/uL (1.6-8.6); Neutrophils % (auto) 91.2 % (37.0-80.0); Platelet Count (auto) 254 10^3/uL (140-450); Red Blood Cells 4.94 10^6/uL (4.0-5.20); Red Cell Distribution Width 13.3 % (11.8-14.3); White Blood Cell 16.1 10^3/uL (4.4-10.8)
[2024-03-26 19:16] LABS: Alanine Aminotransferase 33 U/L (7-40); Anion Gap 10 (5-15); Aspartate Aminotransferase 27 U/L (13-40); BUN/Creatinine Ratio 14.5 (10.0-20.0); Bilirubin, Total 0.5 mg/dL (0.2-1.0); Blood Urea Nitrogen 12 mg/dL (9-23); Carbon Dioxide 27 mmol/L (20-31); Chloride 104 mmol/L (98-107); Lipase 39 U/L (12-53); Potassium 3.7 mmol/L (3.5-5.1); Sodium 141 mmol/L (136-145); Total Protein 8.2 g/dL (5.7-8.2)
[2024-03-26 19:17] LABS: Albumin 5.2 g/dL (3.2-4.8); Alkaline Phosphatase 160 U/L (46-116); Calcium 10.9 mg/dL (8.7-10.4); Glucose 139 mg/dL (74-106)
[2024-03-26] MEDS: IOHEXOL 300 MG/ML 100ML BOTTLE IJ ONE (20:35)
[2024-03-26] MEDS: SODIUM CHLORIDE 0.9% 1,000 ML IV ONE (20:53)
[2024-03-26] MEDS: MORPHINE SULFATE 4 MG/ML SYR/VIAL IV ONE (20:55)
[2024-03-26] MEDS: ONDANSETRON HCL 4 MG/2 ML VIAL IV ONE (20:55)
--- NOTE | 2024-03-26 21:15 | DVH ---
CT CT AB PEL WITH IV CON ONLY INDICATION: abdominal pain EXAM DATE: 03/26/2024 08:29 PM COMPARISON: CT CT AB PEL WO CON-NO ORAL OR IV on DOS: 12/17/23, CT CT AB PEL WO CON-NO ORAL OR IV on D OS: 10/06/23, CT CT AB PEL WO CON-NO ORAL OR IV on DOS: 12/24/22 RADIATION DOSE: CTDIvol: 12.44 mGy, DLP: 694.62 mGy*cm PROCEDURE: Helical CT images were obtained of the abdomen and pelvis with IV contrast Sagittal and c oronal reconstructions are provided. ORAL CONTRAST: None. ADDITIONAL IMAGES / REFORMATS: None All CT scans at this medical facility are performed using dose modulation techniques as appropriate t o a performed exam including the following: Automated exposure control was utilized; adjustment of th e MA and/or KV according to patient size; and use of iterative reconstruction technique. FINDINGS: LUNG BASE: Bibasilar atelectasis is noted. LIVER: Multiple hepatic cystic lesions with the largest measures 2.7 cm on the left lobe. GALLBLADDER AND BILIARY TREE: No calcified gallstones. Normal caliber wall. No intra- or extrahepatic biliary ductal dilation. PANCREAS: Normal. SPLEEN: Normal. BOWEL: Mildly distended loops of small bowel and fluid filled colon. Appendix appears prominent but w ithin normal limits. ADRENALS: Normal. KIDNEYS AND URETER: Post surgical changes from a right partial nephrectomy is seen. BLADDER: Normal. REPRODUCTIVE ORGANS: Normal. LYMPH NODES:No lymphadenopathy. PERITONEUM: Trace pelvic fluid is noted. VESSELS: Scattered atherosclerotic calcifications are noted. RETROPERITONEUM: Normal. ABDOMINAL WALL: Normal. BONES: Scattered osseous degenerative changes are noted. IMPRESSION: Mildly distended loops of small bowel and fluid filled colon can be seen with gastroenteritic and pos sibly mild ileus.
[2024-03-26] MEDS ORDERED: ceFAZolin 2 GM/D5W50ml 50 ML IV ONE (22:30)
[2024-03-26] MEDS ORDERED: HYDROcodone-ACET 5/325MG TAB PO PRN (22:45)
[2024-03-26] MEDS ORDERED: DOCUSATE SOD 100 MG CAP PO PRN (22:45)
[2024-03-26] MEDS ORDERED: MORPHINE SULFATE INJ 2 MG/ml SYRG IV PRN (22:45)
[2024-03-26] MEDS: SODIUM CHLORIDE 0.9% 1,000 ML IV SCH (22:45)
[2024-03-26] MEDS ORDERED: DEXTROSE (50%) 50ML SYRG IV PRN (22:45)
[2024-03-26] MEDS ORDERED: MAALOX PLUS or MAALOX 30 ML PO PRN (22:45)
[2024-03-26] MEDS ORDERED: LORazepam 0.5 MG TAB PO PRN ×2 (22:45→23:15)
[2024-03-26] MEDS ORDERED: TEMAZEPAM 15 MG CAP PO PRN (22:45)
[2024-03-26] MEDS ORDERED: ACETAMINOPHEN 325 MG TAB PO PRN (22:45)
[2024-03-26] MEDS ORDERED: ONDANSETRON HCL 4 MG/2 ML VIAL IV PRN (22:45)
[2024-03-26] MEDS: metroNIDAZOLE 500MG/100ML 100 ML IV ONE (22:55)
--- NOTE | 2024-03-26 22:58 | DVHHP2 ---
History of Present Illness Reason for Visit: stomach pain History of Present Illness 68-year-old obese patient with a past medical history of paresis comes to the ED for complaints of nausea vomiting constipation and pain patient was evaluated in the ED including having a CT scan for her stated age out of 12 pain that has not been relieved with any of the medications that she takes at home states that for her constipation she has taken multiple medications to help with bowel movements this has been successful CT scan in the ED showed patient might have a possible ileus versus colitis patient was recommended for acute admission and continued inpatient care Cardiovascular: HTN Renal/: UTI Review of Systems Constitutional: Yes: Weakness; No: Fever, Chills, Sweats, Malaise, Other Eyes: No: Pain, Vision change, Conjunctivae inflammation, Eyelid inflammation, Other, Redness ENT: No: Ear pain, Ear discharge, Nose pain, Nose discharge, Nose congestion, Mouth pain, Mouth swelling, Throat pain, Throat swelling, Other Respiratory: No: Cough, Dry, Shortness of breath, SOB with excertion, Wheezing, Hemoptysis, Pleuritic Pain, Sputum, Wheezing, Other Cardiovascular: No: Chest Pain, Palpitations, Orthopnea, Paroxysmal Noc. Dyspnea, Edema, Lt Headedness, Other Gastrointestinal: No: Nausea, Vomiting, Abdominal Pain, Diarrhea, Constipation, Melena, Hematochezia, Other Genitourinary: Dysuria, Frequency, Incontinence; No Hematuria, No Retention, No Other Musculoskeletal: No: other, neck pain, shoulder pain, arm pain, back pain, hand pain, leg pain, foot pain Skin: No: Rash, Lesions, Jaundice, Bruising, Other Neurological: No: Weakness, Numbness, Incoordination, Change in speech, Confusion, Seizures, Other Allergies: Coded Allergies: NO KNOWN ALLERGIES (Unverified , 01/22/17) Medications Current Medications Medications Dose Ordered Sig/Sugar Route Start Time Stop Time Status Last Admin Dose Admin Cefazolin Sodium 50 ml @ 100 mls/hr Q8HR IV 03/27/24 06:00 UNV Metronidazole 100 ml @ 100 mls/hr Q8HR IV 03/27/24 06:00 UNV Levothyroxine Sodium 25 mcg DAILY PO 03/27/24 10:00 UNV Pantoprazole Sodium 40 mg DAILY PO 03/27/24 10:00 UNV Patient Own Medication 1 tab DAILY PO 03/27/24 10:00 UNV Patient Own Medication 40 mg HS PO 03/27/24 22:00 UNV Patient Own Medication 1 tab TID PO 03/27/24 06:00 UNV Patient Own Medication 1 tab DAILYPRN PRN PO 03/26/24 22:45 UNV Diagnostic Test (Pha) 1 strip IQ4HR 03/27/24 00:00 UNV Insulin Human Regular IQ4HR SC 03/27/24 00:00 UNV Dextrose 50 ml UD PRN IV 03/26/24 22:45 UNV Sodium Chloride 1,000 ml @ 60 mls/hr [id number] IV 03/26/24 22:45 UNV Lorazepam 0.5 mg Q6HP PRN PO 03/26/24 22:45 UNV Al Hydrox/Mg Hydrox/Simethicone 30 ml Q6HP PRN PO 03/26/24 22:45 UNV Docusate Sodium 100 mg BIDPRN PRN PO 03/26/24 22:45 UNV Acetaminophen 650 mg Q6HP PRN PO 03/26/24 22:45 UNV Temazepam 15 mg QHSP PRN PO 03/26/24 22:45 UNV Acetaminophen/ Hydrocodone Bitart 1 tab Q4HP PRN PO 03/26/24 22:45 UNV Ondansetron HCl 4 mg Q4HP PRN IV 03/26/24 22:45 UNV Morphine Sulfate 2 mg Q4HPRN PRN IV 03/26/24 22:45 UNV Exam Vital Signs Vital Signs Date Time Temp Pulse Resp B/P (MAP) Pulse Ox O2 Delivery O2 Flow Rate FiO2 03/26/24 21:30 70 18 118/70 03/26/24 20:55 Room Air* 0 21 03/26/24 20:39 98.8 97 98.8 General Appearance: Alert, Oriented X3, Cooperative HEENT: Atraumatic, PERRLA Respiratory: Clear to auscultation, Normal air movement Cardiovascular: Regular rate, Normal S1, Normal S2 Abdominal: Normal bowel sounds Extremities: No clubbing, No cyanosis Skin: No rashes, No breakdown Neuro: Normal gait, Normal speech Psych/Mental Status: Mood NL Labs/Xrays Labs Test 03/26/24 18:40 Range/Units White Blood Count 16.1 H 4.4-10.8 10^3/uL Red Blood Count 4.94 4.0-5.20 10^6/uL Hemoglobin 15.9 12.2-16.2 g/dL Hematocrit 46.1 H 36.0-46.0 % Mean Corpuscular Volume 93.4 80.0-100.0 fL Mean Corpuscular Hemoglobin 32.2 H 28.0-32.0 pg Mean Corpuscular Hemoglobin Concent 34.4 32.0-36.0 g/dL Red Cell Distribution Width 13.3 11.8-14.3 % Platelet Count 254 140-450 10^3/uL Mean Platelet Volume 8.5 6.9-10.8 fL Neutrophils (%) (Auto) 91.2 H 37.0-80.0 % Lymphocytes (%) (Auto) 5.8 L 10.0-50.0 % Monocytes (%) (Auto) 2.3 0.0-12.0 % Eosinophils (%) (Auto) 0.3 0.0-7.0 % Basophils (%) (Auto) 0.4 0.0-2.0 % Neutrophils # (Auto) 14.6 H 1.6-8.6 10 ^3/uL Lymphocytes # (Auto) 0.9 0.4-5.4 10 ^3/uL Monocytes # (Auto) 0.4 0-1.3 10 ^3/uL Eosinophils # (Auto) 0 0-0.8 10 ^3/uL Basophils # (Auto) 0.1 0-0.2 10 ^3/uL Nucleated Red Blood Cells 0.0 % Sodium Level 141 136-145 mmol/L Potassium Level 3.7 3.5-5.1 mmol/L Chloride Level 104 98-107 mmol/L Carbon Dioxide Level 27 20-31 mmol/L Anion Gap 10 5-15 Blood Urea Nitrogen 12 9-23 mg/dL Creatinine 0.83 0.550-1.02 mg/dL Glomerular Filtration Rate Calc 78 >90 mL/min BUN/Creatinine Ratio 14.5 10.0-20.0 Serum Glucose 139 H 74-106 mg/dL Calcium Level 10.9 H 8.7-10.4 mg/dL Total Bilirubin 0.5 0.2-1.0 mg/dL Aspartate Amino Transferase (AST) 27 13-40 U/L Alanine Aminotransferase (ALT) 33 7-40 U/L Alkaline Phosphatase 160 H 46-116 U/L Total Protein 8.2 5.7-8.2 g/dL Albumin 5.2 H 3.2-4.8 g/dL Lipase 39 12-53 U/L Assessment/Plan Assessment/Plan Admit patient to [facility] Infectious colitis versus suspected bowel ileus IV antibiotics IV hydration Diet only as tolerated NPO preferred Patient has several medical history problems Including asthma P.r.n. breathing treatments History of depression continue home medication History of hypertension we will continue home medications for the management hypertension History of recurrent UTIs UA still pending Antibiotics already selected for the management of suspected colitis we will cover UTI if present History of anxiety Patient takes lorazepam multiple times a day for the management of anxiety we will continue home medications Monitor for signs of possible opioid withdrawal P.r.n. medications for the management of nausea and vomiting Plan discussed with: Patient My Orders Orders - TERESA OLEARY MD Procedure Category Date Status Time Cefazolin 1gm/50ml PHA 03/27/24 Logged (Ancef) 06:00 Metronidazole PHA 03/27/24 Logged 500mg/100ml (Flagyl 06:00 Levothyroxine Tablet PHA 03/27/24 Logged (Synthroid Tablet) 10:00 Pantoprazole Tablet PHA 03/27/24 Logged (Protonix Tablet) 10:00 (Nf) Amlodipine PHA 03/27/24 Logged Besylate 10:00 (Nf) Atorvastatin PHA 03/27/24 Logged Calcium 22:00 (Nf) Hydroxyzine Hcl PHA 03/27/24 Logged 06:00 (Nf) Lorazepam PHA 03/26/24 Logged 22:45 Glucose Blood PHA 03/27/24 Logged (Accu-Chek Comfort 00:00 Insulin R (Human) PHA 03/27/24 Logged (Insulin R) 00:00 Dextrose 50% Syringe PHA 03/26/24 Logged 22:45 Admit ADMIT 03/26/24 Transmitted 22:36 Code Status CODE 03/26/24 Transmitted 22:36 Vital Signs LELO 03/26/24 In Process 22:36 Review Orders With LELO 03/26/24 In Process Adm. 22:36 Consistent DIET 03/27/24 Transmitted Carb(Ccho)Diabetes Breakfast Sodium Chloride 0.9% PHA 03/26/24 Logged 22:45 Lorazepam Tablet PHA 03/26/24 Logged (Ativan Tablet) 22:45 Alum & Mag PHA 03/26/24 Logged Hydrox-Simethicone 22:45 Docusate Sodium PHA 03/26/24 Logged Capsule (Colace 22:45 Acetaminophen Tablet PHA 03/26/24 Logged (Tylenol Tablet) 22:45 Temazepam (Restoril) PHA 03/26/24 Logged 22:45 Notify Md Of Changes [facility] 03/26/24 In Process From Base 22:36 Advance Directive LELO 03/26/24 In Process 22:36 Basic Metabolic Panel LAB 03/27/24 Verified 04:00 Complete Blood Count LAB 03/27/24 Verified 04:00 Patient Condition ORDERS 03/26/24 Transmitted 22:36 Allergies [facility] 03/26/24 In Process 22:36 Hydrocodone-Acet PHA 03/26/24 Logged 5/325mg Tab ([place] 22:45 Ondansetron Hcl PHA 03/26/24 Logged (Zofran) 22:45 Morphine Sulfate [facility] 03/26/24 Logged Injection 22:45 Notify Md Of Changes [facility] 03/26/24 In Process From Base 22:36 Oxygen By Nasal RT 03/26/24 Transmitted Cannula 22:36 Problem List: (1) Abdominal pain (2) Nausea and vomiting (3) Colitis (4) Acute abdominal pain Date of Service: Mar 26, 2024 Billing Provider: TERESA OLEARY MD Common Visit Codes: [id number] INP/OBS CARE (HIGH) TERESA OLEARY MD Mar 26, 2024 22:58
[2024-03-26] MEDS: ceFAZolin 1GM/50ML 50 ML IV ONE ×2 (23:28)
[2024-03-26] MEDS: ACCU-CHEK COMFORT CURVE STRIP VI SCH (23:38)
[2024-03-26] MEDS: InsuLIN REG 1unit/0.01ml Soln (100units/ml) SC SCH (23:40)
[2024-03-27] VITALS (7 sets, daily range): BP systolic 107–131; BP diastolic 54–80; PULSE 62–83; RESP 16–18; TEMP 97.7–98.6; O2SAT 95–98
[2024-03-27] MEDS ORDERED: DOCU-265 PO (02:01)
[2024-03-27 06:01] LABS: Anion Gap 10 (5-15); Carbon Dioxide 24 mmol/L (20-31); Sodium 142 mmol/L (136-145)
[2024-03-27 06:03] LABS: Calcium 9.5 mg/dL (8.7-10.4)
[2024-03-27 06:05] LABS: Basophils # (auto) 0 10 ^3/uL (0-0.2); Basophils % (auto) 0.2 % (0.0-2.0); Eosinophils # (auto) 0.2 10 ^3/uL (0-0.8); Eosinophils % (auto) 1.2 % (0.0-7.0); Hematocrit 40.5 % (36.0-46.0); Hemoglobin 13.7 g/dL (12.2-16.2); Lymphocytes # (auto) 2.6 10 ^3/uL (0.4-5.4); Mean Corpuscular Hemoglobin 32.1 pg (28.0-32.0); Mean Corpuscular Hgb Conc. 33.8 g/dL (32.0-36.0); Mean Corpuscular Volume 94.8 fL (80.0-100.0); Monocytes # (auto) 0.8 10 ^3/uL (0-1.3); Neutrophils % (auto) 71.6 % (37.0-80.0); Platelet Count (auto) 224 10^3/uL (140-450); Red Blood Cells 4.27 10^6/uL (4.0-5.20); Red Cell Distribution Width 13.8 % (11.8-14.3); White Blood Cell 12.5 10^3/uL (4.4-10.8)
[2024-03-27 06:07] LABS: BUN/Creatinine Ratio 15.1 (10.0-20.0); Blood Urea Nitrogen 11 mg/dL (9-23); Glucose 75 mg/dL (74-106)
[2024-03-27 06:30] LABS: Chloride 108 mmol/L (98-107); Potassium 3.4 mmol/L (3.5-5.1)
[2024-03-27] MEDS: ceFAZolin 1GM/50ML 50 ML IV SCH (06:36)
[2024-03-27] MEDS: metroNIDAZOLE 500MG/100ML 100 ML IV SCH (06:36)
[2024-03-27] MEDS: hydrOXYzine 25 MG TAB or CAP PO SCH (06:46)
[2024-03-27] MEDS: PANTOPRAZOLE 40 MG TAB PO SCH (09:12)
[2024-03-27] MEDS: amLODIPine BESYLATE 5 MG TAB PO SCH (09:12)
[2024-03-27] MEDS: LEVOTHYROXINE SODIUM 25 MCG TAB PO SCH (09:12)
--- NOTE | 2024-03-27 12:55 | DVHPN2 ---
Reviewed: Care Plan, H&P, Labs, Medications, Previous Orders, Radiology Changes from previous H/P or p: No Changes Eyes: No Pain, No Vision change, No Conjunctivae inflammation, No Eyelid inflammation, No Other, No Redness ENT: No Ear pain, No Ear discharge, No Nose pain, No Nose discharge, No Nose congestion, No Mouth pain, No Mouth swelling, No Throat pain, No Throat swelling, No Other Cardiovascular: No Chest Pain, No Palpitations, No Orthopnea, No Paroxysmal Noc. Dyspnea, No Edema, No Lt Headedness, No Other Respiratory: No Cough, No Dry, No Shortness of breath, No SOB with excertion, No Wheezing, No Hemoptysis, No Pleuritic Pain, No Sputum, No Other Gastrointestinal: No Nausea, No Vomiting, No Abdominal Pain, No Diarrhea, No Constipation, No Melena, No Hematochezia, No Other Genitourinary: Dysuria, Frequency, Incontinence; No Hematuria, No Retention, No Other Musculoskeletal: No other, No neck pain, No shoulder pain, No arm pain, No back pain, No hand pain, No leg pain, No foot pain Skin: No Rash, No Lesions, No Jaundice, No Bruising, No Other Objective Vitals Vital Signs Date Time Temp Pulse Resp B/P (MAP) Pulse Ox O2 Delivery O2 Flow Rate FiO2 03/27/24 09:21 98.0 72 17 110/59 (76) 95 98.0 03/27/24 01:56 Room Air* 0 21 Intake/Output Intake and Output 03/27/24 07:00 Intake Total 1100 ml Balance 1100 ml Intake IV Total 1100 ml # Voids 1 # Bowel Movements 1 Medications Current Medications Medications Dose Ordered Sig/Sugar Route Start Time Stop Time Status Last Admin Dose Admin Cefazolin Sodium 50 ml @ 100 mls/hr Q8HR IV 03/27/24 06:00 03/27/24 06:36 100 MLS/HR Metronidazole 100 ml @ 100 mls/hr Q8HR IV 03/27/24 06:00 03/27/24 06:36 100 MLS/HR Levothyroxine Sodium 25 mcg DAILY PO 03/27/24 10:00 03/27/24 09:12 25 MCG Pantoprazole Sodium 40 mg DAILY PO 03/27/24 10:00 03/27/24 09:12 40 MG Amlodipine Besylate 2.5 mg DAILY PO 03/27/24 10:00 03/27/24 09:12 2.5 MG Atorvastatin Calcium 40 mg HS PO 03/27/24 22:00 Hydroxyzine Pamoate 50 mg TID PO 03/27/24 06:00 03/27/24 06:46 50 MG Lorazepam 1 mg DAILYPRN PRN PO 03/26/24 23:15 Diagnostic Test (Pha) 1 strip IQ4HR 03/27/24 00:00 03/27/24 11:19 1 STRIP Insulin Human Regular IQ4HR SC 03/27/24 00:00 03/26/24 23:40 3 UNITS Dextrose 50 ml UD PRN IV 03/26/24 22:45 Sodium Chloride 1,000 ml @ 60 mls/hr [id number] IV 03/26/24 22:45 Lorazepam 0.5 mg Q6HP PRN PO 03/26/24 22:45 Al Hydrox/Mg Hydrox/Simethicone 30 ml Q6HP PRN PO 03/26/24 22:45 Docusate Sodium 100 mg BIDPRN PRN PO 03/26/24 22:45 Acetaminophen 650 mg Q6HP PRN PO 03/26/24 22:45 Temazepam 15 mg QHSP PRN PO 03/26/24 22:45 Acetaminophen/ Hydrocodone Bitart 1 tab Q4HP PRN PO 03/26/24 22:45 Ondansetron HCl 4 mg Q4HP PRN IV 03/26/24 22:45 Morphine Sulfate 2 mg Q4HPRN PRN IV 03/26/24 22:45 Laboratory Results Laboratory Tests 03/27/24 05:05 Chemistry Test 03/26/24 18:40 03/27/24 05:05 Albumin 5.2 g/dL (3.2-4.8) H Calcium Level 10.9 mg/dL (8.7-10.4) H 9.5 mg/dL (8.7-10.4) Total Protein 8.2 g/dL (5.7-8.2) Lipid panel Test 03/26/24 18:40 Lipase 39 U/L (12-53) LFT Test 03/26/24 18:40 Alanine Aminotransferase (ALT) 33 U/L (7-40) Alkaline Phosphatase 160 U/L (46-116) H Aspartate Amino Transferase (AST) 27 U/L (13-40) Total Bilirubin 0.5 mg/dL (0.2-1.0) Labs and/or images reviewed: Labs reviewed by me, Image(s) reviewed by me Assessment/Plan Assessment/Plan Gastroenteritis: Radhaef Sanchez, consult for GI Dr. Natalia Vu Acute dehydration: IV fluids Anxiety Asthma Depression Hypothyroidism: Synthroid Hypertension amlodipine Diabetes insulin sliding scale Hypercholesterolemia: Lipitor Time Spent 55 minutes Patient is full code Advanced care planning time 20 minutes Plan discussed with: Patient Date of Service: Mar 27, 2024 Billing Provider: RAMON SCRUGGS MD Common Visit Codes: [id number] INP/OBS CARE(HIGH) Secondary Visit Codes: [id number] CARE PLAN 30 MINUTES RAMON SCRUGGS MD Mar 27, 2024 12:55
[2024-03-27] MEDS: ATORVASTATIN 20 MG TAB PO SCH (23:23)
[2024-03-28 05:00] VITALS: BP 92/53; PULSE 71; RESP 18; TEMP 97.7; O2SAT 95
--- NOTE | 2024-03-28 07:26 | DVHINCON2 ---
Date of service: Mar 28, [address] Jarrett Castaneda Reason for Consultation Acute gastroenteritis History of Present Illness 68-year-old patient admitted via the emergency room for complaints of nausea vomiting constipation and pain. Patient has a history of chronic constipation and was taking multiple medications to help relieve her constipation. Patient as now moving her bowels and she has no further episodes of nausea vomiting and has minimal residual abdominal pain. CT scan was suggestive of possible ileus versus gastroenteritis. Patient has had two bowel movements since admission Past Medical History Cardiovascular: HTN Renal/: UTI Gastritis Past Surgical History Right kidney mass removal Family History: Hypertension G8 MOTHER Allergies: Coded Allergies: NO KNOWN ALLERGIES (Unverified , 01/22/17) Home Meds Reported Medications Polyethylene Glycol 3350 ([id number]) 17 Gm/Scoop Pow, 17 GM PO DAILY PRN for FOR CONSTIPATION for 30 Days, #510 03/27/24 Budesonide-Formoterol Fumarate (Budesonide/Formoterol Fum 80-4.5 Mcg/Act) 1 Aer Aer, 1 PUFF IN for 60 Days, #10.2 03/27/24 Triamcinolone Acetonide (Kenalog) 1 Applic Ap, 1 APPLIC TOP TID for 30 Days, #30 03/27/24 Ibuprofen (Ibuprofen) 400 Mg Tab, 1 TAB PO BID for 30 Days, #60 03/27/24 Loratadine (Claritin) 10 Mg Tab, 1 TAB PO DAILY for 30 Days, #30 03/27/24 Fluticasone Propionate (Nasal) (Fluticasone Propionate Na) 50 Mcg/Act Spr, 2 SPRAYS EACHNOSTRI DAILY for 30 Days, #16 03/27/24 Venlafaxine Hcl (Venlafaxine Hcl Er) 75 Mg Cap, 1 CAP PO QAM for 30 Days, #30 03/27/24 Quetiapine Fumerate (QUETIAPINE FUMARATE) 300 Mg Tab, 1 TAB PO DAILY for 30 Days, #30 03/27/24 Omeprazole (Omeprazole Dr) 40 Mg Cap, 1 CAP PO DAILY for 30 Days, #30 03/27/24 Atorvastatin Calcium (Lipitor) 10 Mg Tab, 1 TAB PO QAM for 30 Days, #30 03/27/24 Docusate Sodium (Docusate Sodium) 100 Mg Cap, 1 CAP PO BIDPRN PRN for constipation 03/27/24 Atorvastatin Calcium (ATORVASTATIN CALCIUM) 40 Mg Tab, 40 MG PO HS, TAB 12/18/23 Montelukast Sodium (MONTELUKAST SODIUM) 10 Mg Tab, 1 TAB PO DAILY for allergies 12/18/23 Lorazepam (Lorazepam) 1 Mg Tab, 1 TAB PO DAILYPRN PRN for ANXIETY 12/18/23 Amlodipine Besylate (Amlodipine Besylate) 2.5 Mg Tab, 1 TAB PO DAILY 12/18/23 Levothyroxine Sodium (Levothyroxine Sodium) 25 Mcg Tab, 1 TAB PO DAILY 12/18/23 Hydroxyzine Hcl (Hydroxyzine Hcl) 50 Mg Tab, 1 TAB PO TID 12/18/23 Current Medications Current Medications Medications (Trade) Dose Ordered Sig/Sugar Route PRN Reason Start Time Stop Time Status Last Admin Levothyroxine Sodium (Synthroid Tablet) 25 mcg DAILY PO 03/27/24 10:00 03/27/24 09:12 Pantoprazole Sodium (Protonix Tablet) 40 mg DAILY PO 03/27/24 10:00 03/27/24 09:12 Amlodipine Besylate (Norvasc Tablet) 2.5 mg DAILY PO 03/27/24 10:00 03/27/24 09:12 Atorvastatin Calcium (Lipitor) 40 mg HS PO 03/27/24 22:00 03/27/24 23:23 Vital Signs Vital Signs Date Time Temp Pulse Resp B/P (MAP) Pulse Ox O2 Delivery O2 Flow Rate FiO2 03/28/24 05:00 97.7 71 18 92/53 (66) 95 97.7 03/27/24 20:00 Room Air* 0 21 Physical Exam General Appearance: Alert, Oriented X3, Cooperative HEENT: Atraumatic, PERRLA Respiratory: Clear to auscultation, Normal air movement Cardiovascular: Regular rate, Normal S1, Normal S2 Abdominal: Normal bowel sounds Extremities: No clubbing, No cyanosis Skin: No rashes, No breakdown Neuro: Normal gait, Normal speech Psych/Mental Status: Mood NL Labs/Diagnostic Data Labs Test 03/27/24 10:59 03/27/24 05:05 03/26/24 18:40 Range/Units POC Glucose 107 H 70-106 mg/dl White Blood Count 12.5 H 4.4-10.8 10^3/uL Red Blood Count 4.27 4.0-5.20 10^6/uL Hemoglobin 13.7 12.2-16.2 g/dL Hematocrit 40.5 # 36.0-46.0 % Mean Corpuscular Volume 94.8 80.0-100.0 fL Mean Corpuscular Hemoglobin 32.1 H 28.0-32.0 pg Mean Corpuscular Hemoglobin Concent 33.8 32.0-36.0 g/dL Red Cell Distribution Width 13.8 11.8-14.3 % Platelet Count 224 140-450 10^3/uL Mean Platelet Volume 8.8 6.9-10.8 fL Neutrophils (%) (Auto) 71.6 37.0-80.0 % Lymphocytes (%) (Auto) 21.0 10.0-50.0 % Monocytes (%) (Auto) 6.0 0.0-12.0 % Eosinophils (%) (Auto) 1.2 0.0-7.0 % Basophils (%) (Auto) 0.2 0.0-2.0 % Neutrophils # (Auto) 9.0 H 1.6-8.6 10 ^3/uL Lymphocytes # (Auto) 2.6 0.4-5.4 10 ^3/uL Monocytes # (Auto) 0.8 0-1.3 10 ^3/uL Eosinophils # (Auto) 0.2 0-0.8 10 ^3/uL Basophils # (Auto) 0 0-0.2 10 ^3/uL Nucleated Red Blood Cells 0.0 % Sodium Level 142 136-145 mmol/L Potassium Level 3.4 L 3.5-5.1 mmol/L Chloride Level 108 H 98-107 mmol/L Carbon Dioxide Level 24 20-31 mmol/L Anion Gap 10 5-15 Blood Urea Nitrogen 11 9-23 mg/dL Creatinine 0.73 0.550-1.02 mg/dL Glomerular Filtration Rate Calc 91 >90 mL/min BUN/Creatinine Ratio 15.1 10.0-20.0 Serum Glucose 75 74-106 mg/dL Calcium Level 9.5 8.7-10.4 mg/dL Total Bilirubin 0.5 0.2-1.0 mg/dL Aspartate Amino Transferase (AST) 27 13-40 U/L Alanine Aminotransferase (ALT) 33 7-40 U/L Alkaline Phosphatase 160 H 46-116 U/L Total Protein 8.2 5.7-8.2 g/dL Albumin 5.2 H 3.2-4.8 g/dL Lipase 39 12-53 U/L CT SCAN ABD PELVIS IMPRESSION: Mildly distended loops of small bowel and fluid filled colon can be seen with gastroenteritic and possibly mild ileus. Problems(with codes): (1) Ileus (2) Constipation (3) Abdominal pain (4) Nausea and vomiting (5) Leukocytosis (6) Acute UTI (urinary tract infection) Plan/Recommendation Assessment and plan Patient appears to have constipation leading to mild ileus that is now resolving She also has mild UTI for which she has been put on IV antibiotics Continue supportive care Advance diet as tolerated Stool softeners; oral PPI Outpatient follow up with GI Services for elective panendoscopy Once again thank you for allowing me to participate in the care of this patient Plan discussed with: Patient, Other (Nurse) KEVIN JULIO MD Mar 28, 2024 07:26
[2024-03-28 08:00] VITALS: RESP 20
[2024-03-28 09:00] VITALS: BP 111/72; PULSE 77; RESP 20; TEMP 98.3; O2SAT 96
--- NOTE | 2024-03-28 09:51 | DVHPN2 ---
Reviewed: Care Plan, H&P, Labs, Medications, Previous Orders, Radiology Changes from previous H/P or p: No Changes Eyes: No Pain, No Vision change, No Conjunctivae inflammation, No Eyelid inflammation, No Other, No Redness ENT: No Ear pain, No Ear discharge, No Nose pain, No Nose discharge, No Nose congestion, No Mouth pain, No Mouth swelling, No Throat pain, No Throat swelling, No Other Cardiovascular: No Chest Pain, No Palpitations, No Orthopnea, No Paroxysmal Noc. Dyspnea, No Edema, No Lt Headedness, No Other Respiratory: No Cough, No Dry, No Shortness of breath, No SOB with excertion, No Wheezing, No Hemoptysis, No Pleuritic Pain, No Sputum, No Other Gastrointestinal: No Nausea, No Vomiting, No Abdominal Pain, No Diarrhea, No Constipation, No Melena, No Hematochezia, No Other Genitourinary: Dysuria, Frequency, Incontinence; No Hematuria, No Retention, No Other Musculoskeletal: No other, No neck pain, No shoulder pain, No arm pain, No back pain, No hand pain, No leg pain, No foot pain Skin: No Rash, No Lesions, No Jaundice, No Bruising, No Other Objective Vitals Vital Signs Date Time Temp Pulse Resp B/P (MAP) Pulse Ox O2 Delivery O2 Flow Rate FiO2 03/28/24 09:00 98.3 77 20 111/72 (85) 96 98.3 03/27/24 20:00 Room Air* 0 21 Intake/Output Intake and Output 03/28/24 07:00 Intake Total 950 ml Balance 950 ml Intake Oral 450 ml IV Total 500 ml # Voids 6 # Bowel Movements 1 Medications Current Medications Medications Dose Ordered Sig/Sugar Route Start Time Stop Time Status Last Admin Dose Admin Cefazolin Sodium 50 ml @ 100 mls/hr Q8HR IV 03/27/24 06:00 03/28/24 05:34 100 MLS/HR Metronidazole 100 ml @ 100 mls/hr Q8HR IV 03/27/24 06:00 03/28/24 06:20 100 MLS/HR Levothyroxine Sodium 25 mcg DAILY PO 03/27/24 10:00 03/27/24 09:12 25 MCG Pantoprazole Sodium 40 mg DAILY PO 03/27/24 10:00 03/27/24 09:12 40 MG Amlodipine Besylate 2.5 mg DAILY PO 03/27/24 10:00 03/27/24 09:12 2.5 MG Atorvastatin Calcium 40 mg HS PO 03/27/24 22:00 03/27/24 23:23 40 MG Hydroxyzine Pamoate 50 mg TID PO 03/27/24 06:00 03/28/24 05:50 50 MG Lorazepam 1 mg DAILYPRN PRN PO 03/26/24 23:15 Sodium Chloride 1,000 ml @ 60 mls/hr [id number] IV 03/26/24 22:45 Lorazepam 0.5 mg Q6HP PRN PO 03/26/24 22:45 Al Hydrox/Mg Hydrox/Simethicone 30 ml Q6HP PRN PO 03/26/24 22:45 Docusate Sodium 100 mg BIDPRN PRN PO 03/26/24 22:45 Acetaminophen 650 mg Q6HP PRN PO 03/26/24 22:45 Temazepam 15 mg QHSP PRN PO 03/26/24 22:45 Acetaminophen/ Hydrocodone Bitart 1 tab Q4HP PRN PO 03/26/24 22:45 Ondansetron HCl 4 mg Q4HP PRN IV 03/26/24 22:45 Morphine Sulfate 2 mg Q4HPRN PRN IV 03/26/24 22:45 Laboratory Results Laboratory Tests 03/27/24 05:05 Labs and/or images reviewed: Labs reviewed by me, Image(s) reviewed by me Assessment/Plan Assessment/Plan Acute Gastroenteritis: Ancef Flagyl, consult for GI Dr. Natalia Vu Acute dehydration: IV fluids Anxiety Asthma Depression Hypothyroidism: Synthroid Hypertension amlodipine Diabetes insulin sliding scale Hypercholesterolemia: Lipitor Time Spent 45 minutes Patient is full code Plan discussed with: Patient My Orders Orders - RAMON SCRUGGS MD Procedure Category Date Status Time * Gi [facility] Professional CONS 03/27/24 Transmitted 12:51 Date of Service: Mar 28, 2024 Billing Provider: RAMON SCRUGGS MD Common Visit Codes: [id number] INP/OBS CARE(HIGH) RAMON SCRUGGS MD Mar 28, 2024 09:51
[2024-03-28] MEDS: metroNIDAZOLE 500MG/100ML 100 ML IV SCH (16:27)
[2024-03-28 17:00] VITALS: BP 106/67; PULSE 65; RESP 20; TEMP 98.5; O2SAT 98
[2024-03-28 22:00] VITALS: BP 102/64; PULSE 72; RESP 18; TEMP 98.2; O2SAT 97
[2024-03-28] MEDS: DOCUSATE SOD 100 MG CAP PO SCH (22:17)
[2024-03-29] MEDS: metroNIDAZOLE 500MG/100ML 100 ML IV SCH (04:37)
[2024-03-29 05:00] VITALS: BP 113/73; PULSE 68; RESP 18; TEMP 97.9; O2SAT 97
[2024-03-29 06:43] LABS: Basophils # (auto) 0 10 ^3/uL (0-0.2); Basophils % (auto) 0.5 % (0.0-2.0); Eosinophils # (auto) 0.3 10 ^3/uL (0-0.8); Eosinophils % (auto) 5.1 % (0.0-7.0); Hematocrit 40.2 % (36.0-46.0); Hemoglobin 13.7 g/dL (12.2-16.2); Lymphocytes # (auto) 1.7 10 ^3/uL (0.4-5.4); Lymphocytes % (auto) 27.8 % (10.0-50.0); Mean Corpuscular Hemoglobin 32.3 pg (28.0-32.0); Mean Corpuscular Hgb Conc. 34.2 g/dL (32.0-36.0); Mean Corpuscular Volume 94.5 fL (80.0-100.0); Monocytes # (auto) 0.4 10 ^3/uL (0-1.3); Monocytes % (auto) 6.7 % (0.0-12.0); Neutrophils # (auto) 3.7 10 ^3/uL (1.6-8.6); Neutrophils % (auto) 59.9 % (37.0-80.0); Nucleated Red Blood Cells % 0.1 %; Platelet Count (auto) 180 10^3/uL (140-450); Red Blood Cells 4.25 10^6/uL (4.0-5.20); Red Cell Distribution Width 13.6 % (11.8-14.3); White Blood Cell 6.2 10^3/uL (4.4-10.8)
[2024-03-29 08:00] VITALS: RESP 18
[2024-03-29] MEDS ORDERED: PANT40T PO (08:42)
[2024-03-29] MEDS ORDERED: METR-344 PO (08:42)
[2024-03-29] MEDS ORDERED: LEVO500T91 PO (08:42)
--- NOTE | 2024-03-29 08:43 | DVHPN2 ---
Reviewed: Care Plan, H&P, Labs, Medications, Previous Orders, Radiology Changes from previous H/P or p: No Changes Eyes: No Pain, No Vision change, No Conjunctivae inflammation, No Eyelid inflammation, No Other, No Redness ENT: No Ear pain, No Ear discharge, No Nose pain, No Nose discharge, No Nose congestion, No Mouth pain, No Mouth swelling, No Throat pain, No Throat swelling, No Other Cardiovascular: No Chest Pain, No Palpitations, No Orthopnea, No Paroxysmal Noc. Dyspnea, No Edema, No Lt Headedness, No Other Respiratory: No Cough, No Dry, No Shortness of breath, No SOB with excertion, No Wheezing, No Hemoptysis, No Pleuritic Pain, No Sputum, No Other Gastrointestinal: No Nausea, No Vomiting, No Abdominal Pain, No Diarrhea, No Constipation, No Melena, No Hematochezia, No Other Genitourinary: Dysuria, Frequency, Incontinence; No Hematuria, No Retention, No Other Musculoskeletal: No other, No neck pain, No shoulder pain, No arm pain, No back pain, No hand pain, No leg pain, No foot pain Skin: No Rash, No Lesions, No Jaundice, No Bruising, No Other Objective Vitals Vital Signs Date Time Temp Pulse Resp B/P (MAP) Pulse Ox O2 Delivery O2 Flow Rate FiO2 03/29/24 05:00 97.9 68 18 113/73 (86) 97 97.9 03/28/24 20:00 Room Air* 0 21 Intake/Output Intake and Output 03/29/24 07:00 Intake Total 1730 ml Balance 1730 ml Intake Oral 1430 ml IV Total 300 ml # Voids 8 Medications Current Medications Medications Dose Ordered Sig/Sugar Route Start Time Stop Time Status Last Admin Dose Admin Cefazolin Sodium 50 ml @ 100 mls/hr Q8HR IV 03/27/24 06:00 03/29/24 05:45 100 MLS/HR Levothyroxine Sodium 25 mcg DAILY PO 03/27/24 10:00 03/28/24 10:55 25 MCG Pantoprazole Sodium 40 mg DAILY PO 03/27/24 10:00 03/28/24 10:55 40 MG Amlodipine Besylate 2.5 mg DAILY PO 03/27/24 10:00 03/27/24 09:12 2.5 MG Atorvastatin Calcium 40 mg HS PO 03/27/24 22:00 03/28/24 22:04 40 MG Hydroxyzine Pamoate 50 mg TID PO 03/27/24 06:00 03/29/24 05:56 50 MG Lorazepam 1 mg DAILYPRN PRN PO 03/26/24 23:15 Sodium Chloride 1,000 ml @ 60 mls/hr [id number] IV 03/26/24 22:45 03/28/24 10:47 60 MLS/HR Lorazepam 0.5 mg Q6HP PRN PO 03/26/24 22:45 Al Hydrox/Mg Hydrox/Simethicone 30 ml Q6HP PRN PO 03/26/24 22:45 Docusate Sodium 100 mg BIDPRN PRN PO 03/26/24 22:45 Acetaminophen 650 mg Q6HP PRN PO 03/26/24 22:45 Temazepam 15 mg QHSP PRN PO 03/26/24 22:45 Acetaminophen/ Hydrocodone Bitart 1 tab Q4HP PRN PO 03/26/24 22:45 Ondansetron HCl 4 mg Q4HP PRN IV 03/26/24 22:45 Morphine Sulfate 2 mg Q4HPRN PRN IV 03/26/24 22:45 Docusate Sodium 100 mg BID PO 03/28/24 22:00 03/28/24 22:17 100 MG Metronidazole 100 ml @ 100 mls/hr Q8H IV 03/29/24 04:30 03/29/24 04:37 100 MLS/HR Laboratory Results Laboratory Tests 03/27/24 05:05 03/29/24 05:47 Labs and/or images reviewed: Labs reviewed by me, Image(s) reviewed by me Assessment/Plan Assessment/Plan Acute Gastroenteritis: Ancef Flagyl, consult for GI Dr. Natalia Vu appreciated advised outpatient panendoscopy Acute dehydration: IV fluids Anxiety Asthma Depression Hypothyroidism: Synthroid Hypertension amlodipine Diabetes insulin sliding scale Hypercholesterolemia: Lipitor Patient feels better tolerating regular diet We will DC home on Levaquin and Flagyl for gastroenteritis Time Spent 45 minutes Patient is full code Plan discussed with: Patient Date of Service: Mar 29, 2024 Billing Provider: RAMON SCRUGGS MD Common Visit Codes: [id number] INP/OBS CARE(HIGH) RAMON SCRUGGS MD Mar 29, 2024 08:43
--- NOTE | 2024-03-29 08:46 | DVHDS2 ---
Discharge Summary Date of Admission Mar 26, 2024 at 22:36 Date of Discharge: Mar 29, 2024 Admitting Diagnosis Abdominal pain nausea and vomiting Wounds: None Labs/Diagnostic Data: Laboratory Results Test 03/29/24 05:47 03/27/24 10:59 03/27/24 05:05 03/26/24 18:40 White Blood Count 6.2 10^3/uL (4.4-10.8) Red Blood Count 4.25 10^6/uL (4.0-5.20) Hemoglobin 13.7 g/dL (12.2-16.2) Hematocrit 40.2 % (36.0-46.0) Mean Corpuscular Volume 94.5 fL (80.0-100.0) Mean Corpuscular Hemoglobin 32.3 pg (28.0-32.0) Mean Corpuscular Hemoglobin Concent 34.2 g/dL (32.0-36.0) Red Cell Distribution Width 13.6 % (11.8-14.3) Platelet Count 180 10^3/uL (140-450) Mean Platelet Volume 8.6 fL (6.9-10.8) Neutrophils (%) (Auto) 59.9 % (37.0-80.0) Lymphocytes (%) (Auto) 27.8 % (10.0-50.0) Monocytes (%) (Auto) 6.7 % (0.0-12.0) Eosinophils (%) (Auto) 5.1 % (0.0-7.0) Basophils (%) (Auto) 0.5 % (0.0-2.0) Neutrophils # (Auto) 3.7 10 ^3/uL (1.6-8.6) Lymphocytes # (Auto) 1.7 10 ^3/uL (0.4-5.4) Monocytes # (Auto) 0.4 10 ^3/uL (0-1.3) Eosinophils # (Auto) 0.3 10 ^3/uL (0-0.8) Basophils # (Auto) 0 10 ^3/uL (0-0.2) Nucleated Red Blood Cells 0.1 % POC Glucose 107 mg/dl (70-106) Sodium Level 142 mmol/L (136-145) Potassium Level 3.4 mmol/L (3.5-5.1) Chloride Level 108 mmol/L (98-107) Carbon Dioxide Level 24 mmol/L (20-31) Anion Gap 10 (5-15) Blood Urea Nitrogen 11 mg/dL (9-23) Creatinine 0.73 mg/dL (0.550-1.02) Glomerular Filtration Rate Calc 91 mL/min (>90) BUN/Creatinine Ratio 15.1 (10.0-20.0) Serum Glucose 75 mg/dL (74-106) Calcium Level 9.5 mg/dL (8.7-10.4) Total Bilirubin 0.5 mg/dL (0.2-1.0) Aspartate Amino Transferase (AST) 27 U/L (13-40) Alanine Aminotransferase (ALT) 33 U/L (7-40) Alkaline Phosphatase 160 U/L (46-116) Total Protein 8.2 g/dL (5.7-8.2) Albumin 5.2 g/dL (3.2-4.8) Lipase 39 U/L (12-53) Other Laboratory Tests 03/29/24 05:47 03/27/24 05:05 Brief Hx & Hospital Course: 68-year-old female with a history of anxiety asthma depression hypothyroidism hypertension diabetes hypercholesterolemia came in complaining of nausea vomiting and abdominal pain found to have acute gastroenteritis by CT abdomen pelvis without contrast treated with Ancef and Flagyl GI consult by Dr. Natalia Vu dehydration resolved with IV fluids Dr. Vu advised outpatient panendoscopy. Patient feels better and wants to go home discharged home on Levaquin and Flagyl and pantoprazole. Consults/Reason for consult GI Dr. Natalia Vu Operations or Procedures CT abdomen pelvis without contrast Condition at Discharge: Fair Final Diagnosis/Problems List Acute Gastroenteritis: Ancef Flagyl, consult for GI Dr. Natalia Vu appreciated advised outpatient panendoscopy Acute dehydration: IV fluids Anxiety Asthma Depression Hypothyroidism: Synthroid Hypertension amlodipine Diabetes insulin sliding scale Hypercholesterolemia: Lipitor Discharge Disposition: Home Discharge Instruct/Medications Diet: Regular Activity: Light activity Follow Up/Referral: Follow up with your primary Dr in one week Follow up with the GI Dr. Natalia Vu in two weeks for panendoscopy Medications: Levaquin Flagyl Pantoprazole Transmitted to [place] [facility] 35 (Time taken for discharge summary 35 minutes) Discharge Statement: "Patient was advised to return to the ER or call 911 if any headaches, dizziness, shortness of breath, chest pain, abdominal pain, bleeding, fevers, or worsening of medical condition. Patient was counseled about treatment plan, medications, possible side effects, patientverbalized understanding. All questions were answered to the best of my ability. This discharge took greater then 30 minutes in planning, reviewing documentation, counseling the patient, and discussing with other team members." ASSESSMENT ASSESSMENT Hospital Course Improved Assessment Acute Gastroenteritis: Ancef Sanchez, consult for GI Dr. Natalia Vu appreciated advised outpatient panendoscopy Acute dehydration: IV fluids Anxiety Asthma Depression Hypothyroidism: Synthroid Hypertension amlodipine Diabetes insulin sliding scale Hypercholesterolemia: Lipitor Date of Service: Mar 29, 2024 Billing Provider: RAMON SCRUGGS MD Common Visit Codes: [id number] DISCH DAY >30min RAMON SCRUGGS MD Mar 29, 2024 08:46
[2024-03-29 09:00] VITALS: BP 111/69; PULSE 71; RESP 18; TEMP 97.9; O2SAT 100
[2024-03-29 10:21] VITALS: BP 111/69; PULSE 71; RESP 18; TEMP 97.9; O2SAT 100
--- NOTE | 2024-03-29 14:25 | DVHPN2 ---
Progress Note - Dictate Date Seen: Mar 29, 2024 (Patient seen at 1:00 p.m.) Medical Necessity Reason Pt with a Central, PICC or Fol: No Subjective No new complaints Tolerating diet Abdominal pain is improved vital signs Vital Sign Date Time Temp Pulse Resp B/P (MAP) Pulse Ox O2 Delivery O2 Flow Rate FiO2 03/29/24 10:31 119/69 03/29/24 10:21 97.9 71 18 100 03/29/24 08:00 Room Air* 0 21 Total Intake and Output 03/28/24 03/28/24 03/29/24 15:00 23:00 07:00 Intake Total 1130 ml 600 ml Balance 1130 ml 600 ml objective General Appearance: Alert, Oriented X3, Cooperative HEENT: Atraumatic, PERRLA Respiratory: Clear to auscultation, Normal air movement Cardiovascular: Regular rate, Normal S1, Normal S2 Abdominal: Normal bowel sounds Extremities: No clubbing, No cyanosis Skin: No rashes, No breakdown Neuro: Normal gait, Normal speech Psych/Mental Status: Mood NL laboratory and microbiology Laboratory Tests 03/29/24 05:47 03/27/24 05:05 Test 03/27/24 05:05 Range/Units Serum Glucose 75 74-106 mg/dL Problems(with codes): (1) Leukocytosis (2) Ileus (3) Constipation (4) Acute abdominal pain (5) Nausea and vomiting Prognosis Plan Discharge planning is in progress Advance diet as tolerated Stool softeners; oral PPI Outpatient follow up with GI Services for elective panendoscopy Once again thank you for allowing me to participate in the care of this patient Plan discussed with: Patient KEVIN JULIO MD Mar 29, 2024 14:24
== END 2024-03-29 13:23 | disposition home or self-care (01) | DRG 249 ==
LOC: ER 17:59 → EDBD 17:59 → OVERFLOW 22:36 → CENTRAL 03-27 01:30
PROVIDERS: ADMIT Hospitalist; ATTEND Family Medicine
DX: K52.9 Noninfective gastroenteritis and colitis, unspecified (principal); E03.9 Hypothyroidism, unspecified; E11.9 Type 2 diabetes mellitus without complications; E66.9 Obesity, unspecified; E78.00 Pure hypercholesterolemia, unspecified; E86.0 Dehydration; F32.A Depression, unspecified; F41.9 Anxiety disorder, unspecified; I10 Essential (primary) hypertension; J45.909 Unspecified asthma, uncomplicated; K59.09 Other constipation; Z90.49 Acquired absence of other specified parts of digestive tract; K29.70 Gastritis, unspecified, without bleeding; Z82.49 Family history of ischemic heart disease and other diseases of the circulatory system; Z87.440 Personal history of urinary (tract) infections; Z68.26 Body mass index [BMI] 26.0-26.9, adult; Z79.4 Long term (current) use of insulin; Z79.899 Other long term (current) drug therapy
CPT/HCPCS: 36415; 74177; 80048; 80053; 82962; 83690; 85025; 96361; 96365; 96375; G0378; J1815; J2405; J3490

== ENCOUNTER 2024-05-24 22:35 | Emergency (ER) | payer MEDICAID ==
[~2024-05-24] VITALS: Ht 149.9 cm; Wt 66.8 kg
[2024-05-24 22:35] VITALS: BP 131/89; RESP 18; O2SAT 97
[~2024-05-24 22:35] MED LIST changes: +DOCU-265 PO; +LEVO500T91 PO; +METR-344 PO
[2024-05-24 22:45] VITALS: PULSE 82
--- NOTE | 2024-05-24 22:48 | ECG ---
[facility] Test Date: 2024-05-24 Test Time: 22:45:46 Pat Name: PATRIZIA HOUSTON Department: ED Room: Gender: F Hydrologic Engineer: SHAYNA : 1955 Requested By: BRET SU Order Number: [id number] Reading MD: Braxton Feliciano Measurements Intervals [place] Rate: 82 P: 64 LA: 147 QRS: 35 QRSD: 70 T: 39 QT: 392 QTc: 458 Interpretive Statements Sinus rhythm Electronically Signed On 05-25-2024 9:50:08 PST by Braxton Feliciano Please click the below link to view image of tracing.
--- NOTE | 2024-05-24 22:57 | ED.PDOC ---
HPI Comments HPI: Poor Historian. 68-year-old female presents to the emergency department for three day history of intermittent left-sided chest discomfort. Nonradiating. No particular alleviating or precipitating factors. She feels shortness of breath. She thought she had some anxiety and took some lorazepam earlier today. Pain scale is 8/10. Past Medcial History: Anxiety, hypertension Past Surgical History: Abdominal mass removal on the right side REVIEW OF SYSTEMS: CONSTITUTIONAL: Denies acute: fever, diaphoresis, chills, generalized weakness. HEAD: Denies acute: headache, photophobia Eyes: Denies acute: Double vision, vision loss, eye pain, eye discharge. EARS: Denies acute: tinnitus, hearing loss, ear discharge, ear pain, THROAT: Denies acute: sore throat, swelling, difficulty swallowing , pain with swallowing, change in voice. NECK: Denies acute: neck pain, neck swelling, stiff neck. HEART: Denies acute : LUNGS: Denies acute: wheezing, cough, hemoptysis ABDOMEN: Denies acute: abdominal pain, Nausea, Vomiting, diarrhea, melena , hematemesis, hematochezia SKIN: Denies acute: rash, redness, lesions, itchiness. EXTREMITIES: Denies acute: calf pain, numbness, tingling, weakness, denies pain in extremity. Denies acute: Low back pain. Neuro: Denies acute: focal neurological deficit, motor or sensory focal neurological deficit, tremors, seizure like activity, confusion, dizziness, change in mental status, loss of bowel or bladder function, cauda equina like symptoms. : Denies acute: dysuria, hematuria, flank pain, increase in urinary frequency. PSYCH: Denies acute: hallucination, suicidal ideation, homicidal ideation. FEMALE: Denies acute: abnormal vaginal bleeding, foul odor, unusual discharge. PHYSICAL EXAM: General: no acute distress, awake and alert. Head: normocephalic, atraumatic. Neck: supple, trachea is midline, no swelling. Throat: Normal phonation. Eyes:, no erythema, no purulent discharge, no proptosis, no icterus. Heart: regular rate, regular rhythm, no significant murmur appreciated. Lungs: no apparent respiratory distress, Able to speak in full sentences. No wheezing, no rhonchi, no crackles. No stridors Clear to auscultation bilaterally. Abdomen: non tender to palpation, non distended, soft, no guarding, no rebound, + bowel sounds. Neuro: Awake, Alert, oriented to name, self, situation, follows commands GCS=15. Speech is normal. Skin: no petechia, no purpura, no cyanosis, non-pale, not jaundice. Lower extremities: --no - Pitting edema no deformity, no focal swelling, no calf TTP. Makes eye contact. moves all four extremities. Face: no apparent facial droop. Ambulating in the ED independently. Chief Complaint: Palpitations Time Seen by MD: 22:44 Primary Care Provider: DONALDSON Reviewed Notes: Nurses Notes, Medications, Allergies Allergies: Coded Allergies: NO KNOWN ALLERGIES (Unverified , 01/22/17) Home Meds Active Scripts Pantoprazole Sodium Sesquihydr (Pantoprazole Sodium) 40 Mg Tab, 40 MG PO BID, #30 TAB Prov:RAMON SCRUGGS MD 03/29/24 Levofloxacin Hemihydrate (LEVAQUIN 500 MG) 500 Mg Tab, 1 TAB PO DAILY, #10 TAB Prov:RAMON SCRUGGS MD 03/29/24 Metronidazole (Flagyl) 500 Mg Tab, 1 TAB PO TID, #30 TAB Prov:RAMON SCRUGGS MD 03/29/24 Reported Medications Polyethylene Glycol 3350 ([id number]) 17 Gm/Scoop Pow, 17 GM PO DAILY PRN for FOR CONSTIPATION for 30 Days, #510 03/27/24 Budesonide-Formoterol Fumarate (Budesonide/Formoterol Fum 80-4.5 Mcg/Act) 1 Aer Aer, 1 PUFF IN for 60 Days, #10.2 03/27/24 Triamcinolone Acetonide (Kenalog) 1 Applic Ap, 1 APPLIC TOP TID for 30 Days, #30 03/27/24 Ibuprofen (Ibuprofen) 400 Mg Tab, 1 TAB PO BID for 30 Days, #60 03/27/24 Loratadine (Claritin) 10 Mg Tab, 1 TAB PO DAILY for 30 Days, #30 24 Fluticasone Propionate (Nasal) (Fluticasone Propionate Na) 50 Mcg/Act Spr, 2 SPRAYS EACHNOSTRI DAILY for 30 Days, #16 03/27/24 Venlafaxine Hcl (Venlafaxine Hcl Er) 75 Mg Cap, 1 CAP PO QAM for 30 Days, #30 03/27/24 Quetiapine Fumerate (QUETIAPINE FUMARATE) 300 Mg Tab, 1 TAB PO DAILY for 30 Days, #30 03/27/24 Omeprazole (Omeprazole Dr) 40 Mg Cap, 1 CAP PO DAILY for 30 Days, #30 03/27/24 Atorvastatin Calcium (Lipitor) 10 Mg Tab, 1 TAB PO QAM for 30 Days, #30 03/27/24 Docusate Sodium (Docusate Sodium) 100 Mg Cap, 1 CAP PO BIDPRN PRN for constipation 03/27/24 Atorvastatin Calcium (ATORVASTATIN CALCIUM) 40 Mg Tab, 40 MG PO HS, TAB 12/18/23 Montelukast Sodium (MONTELUKAST SODIUM) 10 Mg Tab, 1 TAB PO DAILY for allergies 12/18/23 Lorazepam (Lorazepam) 1 Mg Tab, 1 TAB PO DAILYPRN PRN for ANXIETY 12/18/23 Amlodipine Besylate (Amlodipine Besylate) 2.5 Mg Tab, 1 TAB PO DAILY 12/18/23 Levothyroxine Sodium (Levothyroxine Sodium) 25 Mcg Tab, 1 TAB PO DAILY 12/18/23 Hydroxyzine Hcl (Hydroxyzine Hcl) 50 Mg Tab, 1 TAB PO TID 12/18/23 Information Source: Patient Past Medical History PAST MEDICAL HISTORY: Anxiety, Asthma, Depression, HTN, UTI'S Surgical History: Cholecystectomy 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 Was a procedure done?: No CP Differential Dx Differential Diagnosis: N/A Differential Diagnosis: Other (Ddx include but not limitied to gastritis, musculoskeletal pain, radiculopathy, atypical chest pain, dissection, aneurysm, ACS, unstable angina, hiatal hernia, GERD, anxiety, costochondritis, PE, pneumothroax, neoplasm, cardiac ischemia, drug abuse, anemia.) X-Ray, Labs, Meds, VS Vital Signs Date Time Temp Pulse Resp B/P (MAP) Pulse Ox O2 Delivery O2 Flow Rate FiO2 05/24/24 22:45 82 05/24/24 22:35 98.1 101 18 131/89 (103) 97 Lab Test 05/24/24 22:58 05/24/24 22:54 Range/Units White Blood Count 7.1 4.4-10.8 10^3/uL Red Blood Count 4.63 4.0-5.20 10^6/uL Hemoglobin 14.6 12.2-16.2 g/dL Hematocrit 43.0 36.0-46.0 % Mean Corpuscular Volume 93.0 80.0-100.0 fL Mean Corpuscular Hemoglobin 31.5 28.0-32.0 pg Mean Corpuscular Hemoglobin Concent 33.9 32.0-36.0 g/dL Red Cell Distribution Width 14.0 11.8-14.3 % Platelet Count 211 140-450 10^3/uL Mean Platelet Volume 8.1 6.9-10.8 fL Neutrophils (%) (Auto) 47.5 37.0-80.0 % Lymphocytes (%) (Auto) 38.2 10.0-50.0 % Monocytes (%) (Auto) 6.0 0.0-12.0 % Eosinophils (%) (Auto) 6.4 0.0-7.0 % Basophils (%) (Auto) 1.9 0.0-2.0 % Neutrophils # (Auto) 3.4 1.6-8.6 10 ^3/uL Lymphocytes # (Auto) 2.7 0.4-5.4 10 ^3/uL Monocytes # (Auto) 0.4 0-1.3 10 ^3/uL Eosinophils # (Auto) 0.5 0-0.8 10 ^3/uL Basophils # (Auto) 0.1 0-0.2 10 ^3/uL Nucleated Red Blood Cells 0.0 % Sodium Level 140 136-145 mmol/L Potassium Level 3.6 3.5-5.1 mmol/L Chloride Level 108 H 98-107 mmol/L Carbon Dioxide Level 24 20-31 mmol/L Anion Gap 8 5-15 Blood Urea Nitrogen 12 9-23 mg/dL Creatinine 0.78 0.550-1.02 mg/dL Glomerular Filtration Rate Calc 84 >90 mL/min BUN/Creatinine Ratio 15.4 10.0-20.0 Serum Glucose 109 H 74-106 mg/dL Lactic Acid Level 0.9 0.4-2.0 mmol/L Calcium Level 10.0 8.7-10.4 mg/dL Magnesium Level 2.3 1.6-2.6 mg/dL Total Bilirubin 0.4 0.2-1.0 mg/dL Aspartate Amino Transferase (AST) 21 13-40 U/L Alanine Aminotransferase (ALT) 28 7-40 U/L Alkaline Phosphatase 143 H 46-116 U/L Troponin I High Sensitivity < 3 L </=34 ng/L B-Type Natriuretic Peptide 9.14 0-100 pg/mL Total Protein 7.5 5.7-8.2 g/dL Albumin 4.7 3.2-4.8 g/dL Thyroid Stimulating Hormone (TSH) 13.48 H 0.55-4.78 uIU/mL Urine Color Colorless Yellow Urine Clarity Clear Clear Urine pH 6.5 5.0-9.0 Urine Specific [place] 1.002 1.001-1.035 Urine Protein Negative Negative Urine Ketones Negative Negative Urine Blood Trace H Negative /uL Urine Nitrite Negative Negative Urine Bilirubin Negative Negative Urine Urobilinogen Normal Negative mg/dL Urine Leukocyte Esterase 3+ Negative /uL Urine RBC None seen 0 - 4 /hpf Urine Microscopic WBC 14 H 0-5 /HPF Urine Squamous Epithelial Cells Few <5 /hpf Urine Bacteria None seen None Seen /hpf Urine Glucose Normal Normal mg/dL Time of 1ST Reevaluation: 00:00 Reevaluation 1ST: N/A Patient Education/Counseling: Other Family Education/Counseling: Other Comments Patient presented with the above HPI.----cardiac--workup was initiated. patient was found with the above mentioned diagnosis. the following medications were ordered: please refer to order lists of meds and tests obtained by myself Dr. Barth. Escalation of care considered: Consideration of escalation to observation or admission Patient was ADMITTED to the medicine team for further evaluation and treatment of their presentation. However I was informed that the patient eloped All the reports of any imaging studies that were ordered by myself were reviewed by myself. Departure 1 Departure Time of Disposition: 22:55 Impression: Primary Impression: Chest pain Additional Impressions: Eloped from emergency department Thyroid disease History of anxiety Disposition: 07 LEFT AWOL/ELOPED Admit to: Tele Condition: Guarded Additional Instructions: Patient eloped Discharged With: Self Critical Care Note Critical Care Time?: No Heart Score Heart Score: Heart Score Response (Comments) Value History Slightly Suspicious 0 EKG Normal 0 Age >65 2 Risk Factors 1 or 2 risk factors 1 Troponin Normal limit 0 Total 3 BRET BARTH DO May 24, 2024 22:56
[2024-05-24] MEDS ORDERED: ASPirin-EC 325mg tab PO ONE (23:00)
[2024-05-24] MEDS ORDERED: NITROGLYCERIN 0.4 MG SL TAB SL ONE (23:00)
[2024-05-24 23:11] LABS: Urine Bacteria None Seen /hpf (None Seen)
[2024-05-24 23:13] LABS: Basophils # (auto) 0.1 10 ^3/uL (0-0.2); Basophils % (auto) 1.9 % (0.0-2.0); Eosinophils # (auto) 0.5 10 ^3/uL (0-0.8); Eosinophils % (auto) 6.4 % (0.0-7.0); Hemoglobin 14.6 g/dL (12.2-16.2); Lymphocytes # (auto) 2.7 10 ^3/uL (0.4-5.4); Lymphocytes % (auto) 38.2 % (10.0-50.0); Mean Corpuscular Hemoglobin 31.5 pg (28.0-32.0); Mean Corpuscular Hgb Conc. 33.9 g/dL (32.0-36.0); Monocytes # (auto) 0.4 10 ^3/uL (0-1.3); Neutrophils # (auto) 3.4 10 ^3/uL (1.6-8.6); Neutrophils % (auto) 47.5 % (37.0-80.0); Platelet Count (auto) 211 10^3/uL (140-450); Red Blood Cells 4.63 10^6/uL (4.0-5.20); White Blood Cell 7.1 10^3/uL (4.4-10.8)
[2024-05-24 23:35] LABS: Alanine Aminotransferase 28 U/L (7-40); Albumin 4.7 g/dL (3.2-4.8); Anion Gap 8 (5-15); Aspartate Aminotransferase 21 U/L (13-40); BUN/Creatinine Ratio 15.4 (10.0-20.0); Blood Urea Nitrogen 12 mg/dL (9-23); Carbon Dioxide 24 mmol/L (20-31); Potassium 3.6 mmol/L (3.5-5.1); Sodium 140 mmol/L (136-145)
[2024-05-24 23:36] LABS: Bilirubin, Total 0.4 mg/dL (0.2-1.0); Total Protein 7.5 g/dL (5.7-8.2)
[2024-05-24 23:39] LABS: Urine Blood TRACE /uL (Negative); Urine Clarity Clear (Clear); Urine Color Colorless (Yellow); Urine Protein, UAD Negative (Negative); Urine Specific Gravity 1.002 (1.001-1.035); Urine Squamous Epithelial Cell FEW /hpf (<5); Urine Urobilinogen Normal (Negative); Urine WBC 14 /HPF (0-5); Urine pH 6.5 (5.0-9.0)
[2024-05-24 23:40] LABS: Alkaline Phosphatase 143 U/L (46-116); Chloride 108 mmol/L (98-107); Glucose 109 mg/dL (74-106)
== END 2024-05-25 00:03 | disposition left against medical advice (07) ==
LOC: ER 22:35
DX: R07.89 Other chest pain (principal); E07.9 Disorder of thyroid, unspecified; F41.9 Anxiety disorder, unspecified; F32.A Depression, unspecified; J45.909 Unspecified asthma, uncomplicated; I10 Essential (primary) hypertension; Z53.29 Procedure and treatment not carried out because of patient's decision for other reasons; Z90.49 Acquired absence of other specified parts of digestive tract
CPT/HCPCS: 36415; 80053; 81001; 83605; 83735; 83880; 84443; 84484; 85025; 93005

== ENCOUNTER 2024-07-28 11:03 | Emergency (ER) | payer MEDICAID ==
[~2024-07-28] VITALS: Ht 154.9 cm; Wt 68.2 kg
--- NOTE | 2024-07-28 11:44 | ED.PDOC ---
History of Present Illness HPI Comments 69 y/o F, with a history of anxiety, presents with c/o anxiety, today. Patient is a Irish speaker and reports on recent family stressors provoking her anxiety, today, and inquires for Ativan injection after running out of her medication for "awhile," now. Patient denies any suicidal or homicidal ideations, chest pain, shortness of breath, or any additional associated symptoms or modifying factors at this time. Chief Complaint: Anxiety Time Seen by MD: 11:30 Primary Care Provider: DONALDSON Reviewed Notes: Nurses Notes, Medications, Allergies Allergies: Coded Allergies: NO KNOWN ALLERGIES (Unverified , 01/22/17) Home Meds Active Scripts Pantoprazole Sodium Sesquihydr (Pantoprazole Sodium) 40 Mg Tab, 40 MG PO BID, #30 TAB Prov:RAMON SCRUGGS MD 03/29/24 Levofloxacin Hemihydrate (LEVAQUIN 500 MG) 500 Mg Tab, 1 TAB PO DAILY, #10 TAB Prov:RAMON SCRUGGS MD 03/29/24 Metronidazole (Flagyl) 500 Mg Tab, 1 TAB PO TID, #30 TAB Prov:RAMON SCRUGGS MD 03/29/24 Reported Medications Polyethylene Glycol 3350 ([id number]) 17 Gm/Scoop Pow, 17 GM PO DAILY PRN for FOR CONSTIPATION for 30 Days, #510 03/27/24 Budesonide-Formoterol Fumarate (Budesonide/Formoterol Fum 80-4.5 Mcg/Act) 1 Aer Aer, 1 PUFF IN for 60 Days, #10.2 03/27/24 Triamcinolone Acetonide (Kenalog) 1 Applic Ap, 1 APPLIC TOP TID for 30 Days, #30 03/27/24 Ibuprofen (Ibuprofen) 400 Mg Tab, 1 TAB PO BID for 30 Days, #60 03/27/24 Loratadine (Claritin) 10 Mg Tab, 1 TAB PO DAILY for 30 Days, #30 24 Fluticasone Propionate (Nasal) (Fluticasone Propionate Na) 50 Mcg/Act Spr, 2 SPRAYS EACHNOSTRI DAILY for 30 Days, #16 03/27/24 Venlafaxine Hcl (Venlafaxine Hcl Er) 75 Mg Cap, 1 CAP PO QAM for 30 Days, #30 03/27/24 Quetiapine Fumerate (QUETIAPINE FUMARATE) 300 Mg Tab, 1 TAB PO DAILY for 30 Days, #30 03/27/24 Omeprazole (Omeprazole Dr) 40 Mg Cap, 1 CAP PO DAILY for 30 Days, #30 03/27/24 Atorvastatin Calcium (Lipitor) 10 Mg Tab, 1 TAB PO QAM for 30 Days, #30 03/27/24 Docusate Sodium (Docusate Sodium) 100 Mg Cap, 1 CAP PO BIDPRN PRN for constipation 03/27/24 Atorvastatin Calcium (ATORVASTATIN CALCIUM) 40 Mg Tab, 40 MG PO HS, TAB 12/18/23 Montelukast Sodium (MONTELUKAST SODIUM) 10 Mg Tab, 1 TAB PO DAILY for allergies 12/18/23 Lorazepam (Lorazepam) 1 Mg Tab, 1 TAB PO DAILYPRN PRN for ANXIETY 12/18/23 Amlodipine Besylate (Amlodipine Besylate) 2.5 Mg Tab, 1 TAB PO DAILY 12/18/23 Levothyroxine Sodium (Levothyroxine Sodium) 25 Mcg Tab, 1 TAB PO DAILY 12/18/23 Hydroxyzine Hcl (Hydroxyzine Hcl) 50 Mg Tab, 1 TAB PO TID 12/18/23 Information Source: Patient Mode of Arrival: Ambulatory Severity: Moderate Timing: Hours Duration: Since onset Prehospital treatment: None Past Medical History PAST MEDICAL HISTORY: Anxiety, Asthma, Depression, HTN, UTI'S Surgical History: Cholecystectomy 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 Family History Family History: Reviewed,noncontributory to illness Social History Smoker: Non-Smoker Alcohol: Denies ETOH Use Drugs: Denies Drug Use Lives In: Home All Other Systems: Reviewed and Negative (Comprehensive systems review obtained and negative except for what is stated in the HPI.) Physical Exam General Appearance: No Apparent Distress, Normal, Other (Mildly anxious appearing, otherwise in no acute distress, well-developed well-nourished) HEENT: Normal ENT Inspection, Pharynx Normal, TMs Normal Neck: Full Range of Motion, Non-Tender, Normal, Normal Inspection Respiratory: Chest Non-Tender, Lungs Clear, No Accessory Muscle Use, No Respiratory Distress, Normal Breath Sounds Cardiovascular: No Edema, No JVD, No Murmur, No Gallop, Normal Peripheral Pulses, Regular Rate/Rhythm Breast Exam: Deferred Gastrointestinal: No Organomegaly, Non Tender, No Pulsatile Mass, Normal Bowel Sounds, Soft Genitalia: Deferred Pelvic: Deferred Rectal: Deferred Extremities: No calf tenderness, Normal capillary refill, Normal inspection, Normal range of motion, Non-tender, No pedal edema Musculoskeletal : Apperance: Normal Neurologic: Alert, farmworker fur II-XII nml as Tested, No Motor Deficits, Normal Affect, Normal Mood, No Sensory Deficits, Other (1+ anxiety, no suicidal or homicidal thoughts, no hallucinations, does not appear to be responding to internal stimuli, answering questions appropriately) Cerebellar Function: NOT DONE Reflexes: NOT DONE Skin: Dry, Normal Color, Warm Lymphatic: No Adenopathy Was a procedure done? Was a procedure done?: No EKG EKG : Pulse Rate (adult): 80 [place]: Normal Cardiac Rhythm: NSR Block: None Hypertrophy: None ST: Normal Differential Dx Considerations may include: anxiety, ACS, substance abuse, suicidal/homicidal ideation, hallucinations X-Ray, Labs, Meds, VS Vital Signs Date Time Temp Pulse Resp B/P (MAP) Pulse Ox O2 Delivery O2 Flow Rate FiO2 07/28/24 12:07 81 16 95 Room Air* 0 21 07/28/24 12:07 98.0 81 16 134/90 (105) 98 98.0 07/28/24 11:44 80 07/28/24 11:38 80 07/28/24 11:25 98.6 82 18 142/93 (109) 98 98.6 Current Medications Medications (Trade) Dose Ordered Sig/Sugar Route Start Time Stop Time Status Last Admin Lorazepam (Ativan Inj) 1 mg ONCE ONCE IM 07/28/24 11:45 07/28/24 11:46 DC 07/28/24 12:03 X-Ray, Labs, Meds, VS Comment 69-year-old female with a history of anxiety on Ativan pills, recently ran out of her Ativan here today requesting Ativan injection. Denies any suicidal or homicidal thoughts. No hallucinations. No substance abuse. No alcohol abuse. EKG unremarkable. Doubt ACS, alcohol withdrawals, intoxication, substance abuse, suicidal/homicidal ideation, hallucinations. Patient does not meet hold criteria. The patient was given an Ativan injection IM and reported feeling significantly improved and was very appreciative of her care today. I provided the patient with reassurance and instructions to follow up with the primary care doctor/psychiatrist/therapist within two days for re-evaluation. I also provided strict return precautions for homicidal/suicidal ideation, hallucinations, chest pain, numbness, weakness, or any other new or concerning symptoms. The patient expressed understanding and was discharged home in stable condition ambulating with a steady gait in no distress. Time of 1ST Reevaluation: 12:00 Reevaluation 1ST: Unchanged Patient Education/Counseling: Diagnosis, Treatment, Need For Follow Up Family Education/Counseling: No Family Present Departure 1 Departure Time of Disposition: 14:22 Impression: Primary Impression: Anxiety Disposition: 01 HOME / SELF CARE / HOMELESS Condition: Stable Discharged With: Self Critical Care Note Critical Care Time?: No Stability Stability form required: No Heart Score Heart Score: Heart Score Response (Comments) Value History N/A 0 EKG N/A 0 Age N/A 0 Risk Factors N/A 0 Troponin N/A 0 Total 0 DU MAYERS Jul 28, 2024 11:44 LEVI ARVIZU MD Jul 28, 2024 14:23
[2024-07-28] MEDS: LORazepam 2MG/ML-1ML VIAL IM ONE (12:03)
[2024-07-28 12:07] VITALS: PULSE 81; RESP 16; O2SAT 95
--- NOTE | 2024-07-28 12:09 | ECG ---
[facility] Test Date: 2024-07-28 Test Time: 11:38:26 Pat Name: PATRIZIA HOUSTON Department: ER Room: Gender: F Net Developer Consultant: KARLENE : 1955 Requested By: LEVI ARVIZU Order Number: [id number] Reading MD: Measurements Intervals [place] Rate: 80 P: 32 PA: 138 QRS: -8 QRSD: 72 T: 27 QT: 390 QTc: 450 Interpretive Statements Sinus rhythm Probable left atrial enlargement Low voltage, precordial leads Borderline T abnormalities, anterior leads Please click the below link to view image of tracing.
[2024-07-28 14:38] VITALS: BP 129/92; PULSE 87; RESP 16; TEMP 98; O2SAT 96
[2024-07-28] MEDS ORDERED: HYDR-5028 PO (14:39)
== END 2024-07-28 14:44 | disposition home or self-care (01) ==
LOC: ER 11:10
DX: F41.9 Anxiety disorder, unspecified (principal); I10 Essential (primary) hypertension; F32.A Depression, unspecified; J45.909 Unspecified asthma, uncomplicated; Z79.899 Other long term (current) drug therapy; Z87.440 Personal history of urinary (tract) infections; Z90.49 Acquired absence of other specified parts of digestive tract
CPT/HCPCS: 93005; 96372; 99285; J2060

== ENCOUNTER 2024-08-09 08:13 | Emergency (ER) | payer MEDICAID ==
[~2024-08-09] VITALS: Ht 162.6 cm; Wt 68.0 kg
--- NOTE | 2024-08-09 08:39 | ED.PDOC ---
History of Present Illness Chief Complaint: Anxiety Comments pt has daily anxiety for years. no new symptoms Time Seen by MD: 08:18 Primary Care Provider: NONE Allergies: Coded Allergies: NO KNOWN ALLERGIES (Unverified , 01/22/17) Home Meds Active Scripts Pantoprazole Sodium Sesquihydr (Pantoprazole Sodium) 40 Mg Tab, 40 MG PO BID, #30 TAB Prov:RAMON SCRUGGS MD 03/29/24 Levofloxacin Hemihydrate (LEVAQUIN 500 MG) 500 Mg Tab, 1 TAB PO DAILY, #10 TAB Prov:RAMON SCRUGGS MD 03/29/24 Metronidazole (Flagyl) 500 Mg Tab, 1 TAB PO TID, #30 TAB Prov:RAMON SCRUGGS MD 03/29/24 Reported Medications Polyethylene Glycol 3350 ([id number]) 17 Gm/Scoop Pow, 17 GM PO DAILY PRN for FOR CONSTIPATION for 30 Days, #510 03/27/24 Budesonide-Formoterol Fumarate (Budesonide/Formoterol Fum 80-4.5 Mcg/Act) 1 Aer Aer, 1 PUFF IN for 60 Days, #10.2 03/27/24 Triamcinolone Acetonide (Kenalog) 1 Applic Ap, 1 APPLIC TOP TID for 30 Days, #30 03/27/24 Ibuprofen (Ibuprofen) 400 Mg Tab, 1 TAB PO BID for 30 Days, #60 03/27/24 Loratadine (Claritin) 10 Mg Tab, 1 TAB PO DAILY for 30 Days, #30 24 Fluticasone Propionate (Nasal) (Fluticasone Propionate Na) 50 Mcg/Act Spr, 2 SPRAYS EACHNOSTRI DAILY for 30 Days, #16 03/27/24 Venlafaxine Hcl (Venlafaxine Hcl Er) 75 Mg Cap, 1 CAP PO QAM for 30 Days, #30 03/27/24 Quetiapine Fumerate (QUETIAPINE FUMARATE) 300 Mg Tab, 1 TAB PO DAILY for 30 Days, #30 03/27/24 Omeprazole (Omeprazole Dr) 40 Mg Cap, 1 CAP PO DAILY for 30 Days, #30 03/27/24 Atorvastatin Calcium (Lipitor) 10 Mg Tab, 1 TAB PO QAM for 30 Days, #30 24 Docusate Sodium (Docusate Sodium) 100 Mg Cap, 1 CAP PO BIDPRN PRN for constipati on 03/27/24 Atorvastatin Calcium (ATORVASTATIN CALCIUM) 40 Mg Tab, 40 MG PO HS, TAB 12/18/23 Montelukast Sodium (MONTELUKAST SODIUM) 10 Mg Tab, 1 TAB PO DAILY for allergies 12/18/23 Lorazepam (Lorazepam) 1 Mg Tab, 1 TAB PO DAILYPRN PRN for ANXIETY 12/18/23 Amlodipine Besylate (Amlodipine Besylate) 2.5 Mg Tab, 1 TAB PO DAILY 12/18/23 Levothyroxine Sodium (Levothyroxine Sodium) 25 Mcg Tab, 1 TAB PO DAILY 12/18/23 Hydroxyzine Hcl (Hydroxyzine Hcl) 50 Mg Tab, 1 TAB PO TID 12/18/23 Discontinued Scripts Hydroxyzine HCl (Hydroxyzine Hydrochloride) 10 Mg Tab, 10 MG PO QHSP PRN for 10 Days, #10 TAB Prov:LEVI ARVIZU MD 07/28/24 Information Source: Patient, H Medical Record, Past Medical Record (last ER visit for same with normal labs, other than uti, last admit 03/26/24, 12/18/23 for gi symptoms) Mode of Arrival: Ambulatory Severity: Mild Timing: Days Duration: Since onset Past Medical History PAST MEDICAL HISTORY: Anxiety, Asthma, Depression, HTN, UTI'S Surgical History: Cholecystectomy EQUIP MAINT ENG History: No Pertinent EQUIP MAINT ENG History Family History Family History: Reviewed,noncontributory to illness Social History Smoker: Non-Smoker Alcohol: Denies ETOH Use Drugs: Denies Drug Use Lives In: Home Constitutional: denies: chills, diaphoresis, fatigue, fever, malaise, sweats, weakness, others EENTM: denies: blurred vision, double vision, ear bleeding, ear discharge, ear drainage, ear pain, ear ringing, eye pain, eye redness, hearing loss, mouth pain, mouth swelling, nasal discharge, nose bleeding, nose congestion, nose pain, photophobia, tearing, throat pain, throat swelling, voice changes, others Respiratory: denies: cough, hemoptysis, orthopnea, SOB at rest, shortness of breath, SOB with excertion, stridor, wheezing, others Cardiovascular: denies: chest pain, dizzy spells, diaphoresis, Dyspnea on exertion, edema, irregular heart beat, left arm pain, lightheadedness, palpitations, PND, syncope, others Gastrointestinal: denies: abdomen distended, abdominal pain, blood streaked bowels, constipated, diarrhea, dysphagia, difficulty swallowing, hematemesis, melena, nausea, poor appetite, poor fluid intake, rectal bleeding, rectal pain, vomiting, others Genitourinary: denies: abnormal vagina bleeding, burning, dyspareunia, dysuria, flank pain, frequency, hematuria, incontinence, pain, , vagina discharge, urgency, others Neurological: denies: dizziness, fainting, headache, left sided numbness, left sided weakness, numbness, paresthesia, pre-existing deficit, right sided numbness, right sided weakness, seizure, speech problems, tingling, tremors, weakness, others Musculoskeletal: denies: back pain, gout, joint pain, joint swelling, muscle p ain, muscle stiffness, neck pain, others Integumetry: denies: bruises, change in color, change in hair/nails, dryness, laceration, lesions, lumps, rash, wounds, others Allergic/Immunocompromised: denies: Difficulty Healing, Frequent Infections, Hives, Itching, others Endocrine: denies: excessive hunger, excessive sweating, excessive thirst, excessive urination, flushing, intolerance to cold, intolerance to heat, unexplained weight gain, unexplained weight loss, others Psychiatric: reports: anxiety; denies: bipolar disorder, depression, hopeless, panic disorder, schizophrenia, sleepless, suicidal, others Physical Exam General Appearance: No Apparent Distress, Normal HEENT: Normal ENT Inspection, Pharynx Normal, TMs Normal Neck: Full Range of Motion, Non-Tender, Normal, Normal Inspection Respiratory: Chest Non-Tender, Lungs Clear, No Accessory Muscle Use, No Respiratory Distress, Normal Breath Sounds Cardiovascular: No Edema, No JVD, No Murmur, No Gallop, Normal Peripheral Pulses, Regular Rate/Rhythm Breast Exam: Deferred Gastrointestinal: No Organomegaly, Non Tender, No Pulsatile Mass, Normal Bowel Sounds, Soft Genitalia: Deferred Pelvic: Deferred Rectal: Deferred Extremities: No calf tenderness, Normal capillary refill, Normal inspection, Normal range of motion, Non-tender, No pedal edema Musculoskeletal : Apperance: Normal Neurologic: Alert, home day care provider II-XII nml as Tested, No Motor Deficits, Normal Affect, Normal Mood, No Sensory Deficits Cerebellar Function: Normal Reflexes: Normal Skin: Dry, Normal Color, Warm Lymphatic: No Adenopathy Was a procedure done? Was a procedure done?: No Differential Dx Considerations may include: anxiety, stress reaction. medication noncompliance, arrhythmia X-Ray, Labs, Meds, VS Vital Signs Date Time Temp Pulse Resp B/P (MAP) Pulse Ox O2 Delivery O2 Flow Rate FiO2 08/09/24 09:00 98.2 104 18 135/96 (109) 94 98.2 08/09/24 09:00 104 18 94 Room Air 08/09/24 08:28 101 08/09/24 08:21 96.3 106 16 125/89 (101) 97 96.3 Lab Test 08/09/24 08:51 Range/Units Urine Color Yellow Yellow Urine Clarity Clear Clear Urine pH 6.0 5.0-9.0 Urine Specific [place] 1.024 1.001-1.035 Urine Protein Trace H Negative Urine Ketones Negative Negative Urine Blood Negative Negative /uL Urine Nitrite Negative Negative Urine Bilirubin Negative Negative Urine Urobilinogen Normal Negative mg/dL Urine Leukocyte Esterase 3+ Negative /uL Urine RBC 4 0 - 4 /hpf Urine Microscopic WBC 21 H 0-5 /HPF Urine Squamous Epithelial Cells Few <5 /hpf Urine Bacteria None seen None Seen /hpf Urine Mucus Few None Seen Urine Glucose Normal Normal mg/dL Current Medications Medications (Trade) Dose Ordered Sig/Sugar Route Start Time Stop Time Status Last Admin Alprazolam (Xanax Tablet) 0.25 mg ONCE ONCE PO 08/09/24 08:30 08/09/24 08:31 DC 08/09/24 09:23 Haloperidol Lactate (Haldol) 5 mg ONCE ONCE IM 08/09/24 09:15 08/09/24 09:16 DC 08/09/24 09:23 Diphenhydramine HCl (Benadryl Injection) 25 mg ONCE ONCE IM 08/09/24 09:15 08/09/24 09:16 DC 08/09/24 09:24 Time of 1ST Reevaluation: 09:41 Reevaluation 1ST: Improved Patient Education/Counseling: Diagnosis, Treatment, Prognosis, Need For Follow Up Family Education/Counseling: No Family Present Departure 1 Departure Time of Disposition: 09:41 Impression: Primary Impression: Anxiety Additional Impression: Acute UTI (urinary tract infection) Disposition: HOME / SELF CARE / HOMELESS Condition: Good e-Prescriptions Cephalexin Monohydrate (Cephalexin) 500 Mg Cap 500 MG PO Q6HR for 7 Days, #7 CAP Prov: FELIPA ALVAREZ MD 08/09/24 Discharged With: Self Critical Care Note Critical Care Time?: No Stability Stability form required: No FELIPA ALVAREZ MD Aug 09, 2024 08:39
[2024-08-09 08:51] LABS: Urine Bacteria None Seen /hpf (None Seen)
[2024-08-09 09:00] VITALS: BP 135/96; PULSE 104; RESP 18; TEMP 98.2; O2SAT 94
[2024-08-09 09:02] LABS: Urine Blood Negative /uL (Negative); Urine Clarity Clear (Clear); Urine Color Yellow (Yellow); Urine Mucus FEW (None Seen); Urine Protein, UAD TRACE (Negative); Urine Specific Gravity 1.024 (1.001-1.035); Urine Squamous Epithelial Cell FEW /hpf (<5); Urine Urobilinogen Normal (Negative); Urine WBC 21 /HPF (0-5)
[2024-08-09] MEDS: ALPRAZolam 0.25 MG TAB PO ONE (09:23)
[2024-08-09] MEDS: HALOPERIDOL LACTATE 5 MG/ML INJ VIAL IM ONE (09:23)
[2024-08-09] MEDS: diphenhdrAMINE HCL 50 MG/1 ML VL IM ONE (09:24)
[2024-08-09] MEDS ORDERED: CEPH500C PO (09:43)
--- NOTE | 2024-08-11 08:46 | ECG ---
[facility] Test Date: 2024-08-09 Test Time: 08:25:40 Pat Name: PATRIZIA HOUSTON Department: ED Room: Gender: F Swimming Pool Attendant: TIFFANY : 1955 Requested By: FELIPA ALVAREZ Order Number: [id number] Reading MD: Measurements Intervals Stewart Rate: 101 P: 60 AK: 147 QRS: 18 QRSD: 70 T: 22 QT: 350 QTc: 454 Interpretive Statements Sinus tachycardia Please click the below link to view image of tracing.
== END 2024-08-09 10:06 | disposition home or self-care (01) ==
LOC: ER 08:13
DX: F41.9 Anxiety disorder, unspecified (principal); N39.0 Urinary tract infection, site not specified; F32.A Depression, unspecified; I10 Essential (primary) hypertension; J45.909 Unspecified asthma, uncomplicated; Z90.49 Acquired absence of other specified parts of digestive tract; Z79.899 Other long term (current) drug therapy; Z79.890 Hormone replacement therapy
CPT/HCPCS: 81001; 96372; 99284; J1200; J1630; 93005

== ENCOUNTER 2024-09-12 08:49 | Emergency (ER) | payer MEDICAID ==
[~2024-09-12] VITALS: Ht 152.4 cm; Wt 65.6 kg
[~2024-09-12 08:49] MED LIST changes: +CEPH500C PO
[2024-09-12 10:02] LABS: Urine Bacteria FEW /hpf (None Seen); Urine Blood Negative /uL (Negative); Urine Clarity Turbid (Clear); Urine Color Dark-Yellow (Yellow); Urine Mucus FEW (None Seen); Urine Protein, UAD TRACE (Negative); Urine Specific Gravity 1.028 (1.001-1.035); Urine Squamous Epithelial Cell FEW /hpf (<5); Urine Urobilinogen Normal (Negative); Urine WBC 53 /HPF (0-5); Urine pH 6.5 (5.0-9.0)
[2024-09-12 10:11] LABS: Amphetamine Screen, Urine Neg (NEGATIVE); Barbiturate Scree,Urine Neg (NEGATIVE); Benzodiazephine Screen, Urine Pos (NEGATIVE)
[2024-09-12 10:12] LABS: Cannabinoid Screen, Urine Neg (NEGATIVE); Cocaine Screen, Urine Neg (NEGATIVE); Opiate Scree,Urine Neg (NEGATIVE); Phencyclidine Screen, Urine Neg (NEGATIVE)
[2024-09-12] MEDS ORDERED: BACDST PO (10:20)
--- NOTE | 2024-09-12 10:21 | ED.PDOC ---
Psychiatric HPI Comments 69 year old Georgian Speaking female presents to the ED with a Hx of Anxiety, Depression, and UTI's presents for feeling anxious for the past few hours which led to to taking her prescribed Ativan at home. Pt states that her Ativan had no effect and she is still experiencing anxiety. Noted pt has been here multiple times for Anxiety, and her last prescription was on the 07 of September and was prescribed by Tyrone Gregory MD. Pt has requested an Ativan injection for her symptoms. Pt notes she last saw her PCP 5x moths ago and her next appointment is in September. Denies fever, SOB, chest pain, abdominal pain, nausea, vomiting, diarrhea, headache, dizziness, vision changes, or numbness/tingling of extremities. No other symptoms or modifying factors reported at this time. Patient is alert and oriented x4 and has a stable gait. Chief Complaint: Anxiety Time Seen by MD: 09:13 Primary Care Provider: NONE Reviewed Notes: Nurses Notes, Medications, Allergies Information Source: Patient Mode of Arrival: Ambulatory Severity: Able to Care for Self Severity of Pain: Mild Severity of Mental Status: None Severity of Symptoms: Mild Timing: Hours Duration: Since onset, Hours Prehospital treatment: None Presents with: Depression, Anxiety Ingestion: None Circumstance: None Current substance abuse: None Stressors: None History of: Anxiety Quality: None Location: None Location of pain or injury: None Associated signs and symptoms: Depression, Anxiety Past Medical History PAST MEDICAL HISTORY: Anxiety, Asthma, Depression, HTN, UTI'S Surgical History: Cholecystectomy DISPUTE RESOLUTION SPECIALIST History: No Pertinent DISPUTE RESOLUTION SPECIALIST History Family History Family History: Reviewed,noncontributory to illness Social History Smoker: Non-Smoker Alcohol: Denies ETOH Use Drugs: Denies Drug Use Lives In: Home Constitutional: denies: chills, diaphoresis, fatigue, fever, malaise, sweats, weakness, others EENTM: denies: blurred vision, double vision, ear bleeding, ear discharge, ear drainage, ear pain, ear ringing, eye pain, eye redness, hearing loss, mouth pain, mouth swelling, nasal discharge, nose bleeding, nose congestion, nose pain, photophobia, tearing, throat pain, throat swelling, voice changes, others Respiratory: denies: cough, hemoptysis, orthopnea, SOB at rest, shortness of breath, SOB with excertion, stridor, wheezing, others Cardiovascular: denies: chest pain, dizzy spells, diaphoresis, Dyspnea on exertion, edema, irregular heart beat, left arm pain, lightheadedness, palpitations, PND, syncope, others Gastrointestinal: denies: abdomen distended, abdominal pain, blood streaked bowels, constipated, diarrhea, dysphagia, difficulty swallowing, hematemesis, melena, nausea, poor appetite, poor fluid intake, rectal bleeding, rectal pain, vomiting, others Genitourinary: denies: abnormal vagina bleeding, burning, dyspareunia, dysuria, flank pain, frequency, hematuria, incontinence, pain, , vagina discharge, urgency, others Neurological: reports: others (Anxious); denies: dizziness, fainting, headache, left sided numbness, left sided weakness, numbness, paresthesia, pre-existing deficit, right sided numbness, right sided weakness, seizure, speech problems, tingling, tremors, weakness Musculoskeletal: denies: back pain, gout, joint pain, joint swelling, muscle pain, muscle stiffness, neck pain, others Integumetry: denies: bruises, change in color, change in hair/nails, dryness, laceration, lesions, lumps, rash, wounds, others Allergic/Immunocompromised: denies: Difficulty Healing, Frequent Infections, Hives, Itching, others Hematologic/Lymphatic: denies: anemia, blood clots, easy bleeding, easy bruising, swollen glands, others Endocrine: denies: excessive hunger, excessive sweating, excessive thirst, excessive urination, flushing, intolerance to cold, intolerance to heat, unexplained weight gain, unexplained weight loss, others Psychiatric: denies: anxiety, bipolar disorder, depression, hopeless, panic disorder, schizophrenia, sleepless, suicidal, others All Other Systems: Reviewed and Negative Physical Exam General Appearance: Mild Distress, Normal, Obese HEENT: Normal ENT Inspection, TMs Normal Neck: Full Range of Motion, Non-Tender, Normal Respiratory: Chest Non-Tender, Lungs Clear, No Accessory Muscle Use Cardiovascular: No Edema, No JVD, Normal Peripheral Pulses Breast Exam: Deferred Gastrointestinal: Non Tender, Soft Genitalia: Deferred Pelvic: Deferred Rectal: Deferred Extremities: No calf tenderness, Normal capillary refill, Normal range of motion, Non-tender, No pedal edema Musculoskeletal : Apperance: Normal Neurologic: Alert, No Motor Deficits, Normal Mood, No Sensory Deficits, Other (anxious) Cerebellar Function: Normal Reflexes: Normal Skin: Dry, Normal Color, Warm Lymphatic: No Adenopathy Was a procedure done? Was a procedure done?: No Psych Differential Dx Psych. Differential Dx: Anxiety, Depression X-Ray, Labs, Meds, VS Vital Signs Date Time Temp Pulse Resp B/P (MAP) Pulse Ox O2 Delivery O2 Flow Rate FiO2 09/12/24 10:27 99 16 99 Room Air 09/12/24 10:27 98.2 99 16 130/88 (102) 99 98.2 09/12/24 09:08 97.8 105 21 125/89 (101) 97 97.8 Lab Test 09/12/24 09:32 Range/Units Urine Color Dark-yellow Yellow Urine Clarity Turbid H Clear Urine pH 6.5 5.0-9.0 Urine Specific [place] 1.028 1.001-1.035 Urine Protein Trace H Negative Urine Ketones Negative Negative Urine Blood Negative Negative /uL Urine Nitrite Negative Negative Urine Bilirubin Negative Negative Urine Urobilinogen Normal Negative mg/dL Urine Leukocyte Esterase 3+ Negative /uL Urine RBC 15 0 - 4 /hpf Urine Microscopic WBC 53 H 0-5 /HPF Urine Squamous Epithelial Cells Few <5 /hpf Urine Bacteria Few H None Seen /hpf Urine Mucus Few None Seen Urine Glucose Normal Normal mg/dL Urine Opiates Screen Neg NEGATIVE Urine Fentanyl Screen Neg NEGATIVE Urine Barbiturates Screen Neg NEGATIVE Urine Phencyclidine Screen Neg NEGATIVE Urine Amphetamines Screen Neg NEGATIVE Urine Benzodiazepines Screen Pos NEGATIVE Urine Cocaine Screen Neg NEGATIVE Urine Cannabinoids Screen Neg NEGATIVE X-Ray, Labs, Meds, VS Comment Signs and symptoms are most consistent with anxiety. There appears to be no evidence of cardiac disease or arrhythmia. No evidence of hypoxia or pulmonary process. VSS. Cures report ran and advised to continue with her medication regimen for her anxiety. Advised to follow up with PCP and her mental health specialist SADIA History and lab findings consistent with UTI Vital signs stable patient stable Patient tolerating p.o. fluids Encouraged parents to increase water intake Practice good personal hygiene. Always wipe from front to back Drink plenty of fluids to help flush bacteria out of the urinary tract Empty bladder completely as soon as you feel the urge Empty bladder after intercourse Prescribed p.o. antibiotics for presentation of symptoms Complete course of antibiotic therapy even if symptoms improve or resolve. There should be no leftover antibiotics as this can lead to antibiotic resistant bacteria and even worse infection. Parents verbalized understanding. Potential side effects discussed with patient including abdominal pain, nausea, diarrhea. Recommended probiotics and return precautions given Persistent diarrhea Dehydration Blood in stool Ill-appearing Additional MDM Review of External, Non-ED records: External records reviewed. Discussion with independent historian (EMS, family) history obtained from the patient at bedside Chronic conditions affecting care: none Social determinants of health affecting care:none Consideration of admission (observation or admission): I considered escalation of care to admission for this patient, however given the reassuring workup, the patient is safe for outpatient management. Time of 1ST Reevaluation: 10:52 Reevaluation 1ST: Unchanged Patient Education/Counseling: Diagnosis, Treatment Family Education/Counseling: No Family Present Departure 1 Departure Time of Disposition: 10:20 Impression: Primary Impression: Anxiety Additional Impression: Acute UTI (urinary tract infection) Disposition: 01 HOME / SELF CARE / HOMELESS Condition: Fair e-Prescriptions Sulfamethoxazole W/Trimethopri (Bactrim Ds Tablet) 1 Tab Tb 1 TAB PO BID for 5 Days, #10 TAB 0 Refills Prov: YEMI SOSA NP 09/12/24 Critical Care Note Critical Care Time?: No Stability Stability form required: No Heart Score Heart Score: Heart Score Response (Comments) Value History N/A 0 EKG N/A 0 Age N/A 0 Risk Factors N/A 0 Troponin N/A 0 Total 0 I personally scribed for YEMI SOSA NP ([email or web address]) on 09/12/24 at 10:30. Electronically submitted by Leonardo Bocanegra ([email or web address]). YEMI SOSA NP September 12, 2024 10:20
[2024-09-12 10:27] VITALS: BP 130/88; PULSE 99; RESP 16; TEMP 98.2; O2SAT 99
== END 2024-09-12 10:29 | disposition home or self-care (01) ==
LOC: ER 08:49
DX: F41.9 Anxiety disorder, unspecified (principal); N39.0 Urinary tract infection, site not specified; F32.A Depression, unspecified; I10 Essential (primary) hypertension; J45.909 Unspecified asthma, uncomplicated; Z87.440 Personal history of urinary (tract) infections; Z90.49 Acquired absence of other specified parts of digestive tract
CPT/HCPCS: 80307; 81001

== ENCOUNTER 2024-11-02 11:34 | Emergency (ER) | payer MEDICAID ==
[~2024-11-02] VITALS: Ht 160 cm; Wt 64.2 kg
[~2024-11-02 11:34] MED LIST changes: +BACDST PO
--- NOTE | 2024-11-02 12:03 | ED.PDOC ---
Psychiatric HPI Comments 69y F who presents to the ED for chief complaint of suicidal ideations - pt [facility] into [facility] for initial complaint of nausea and upon speaking with ED staff in triage, pt states she is suicidal and wants to kill herself with gun that is located in car - pt dropped pt off and was called via telephone and he states pt has history of anxiety and states she was hospitalized for 1 x month at [facility] [place] and discharged with psych medications for anxiety 2x days prior - pt states pt is non-complaint with her medications and has long psychiatric history of anxiety - pt states gun in otherwise locked in safe away from pt at home - pt in the ED states, her anxiety is causing her shortness of breath and trouble breathing - pt otherwise denies auditory or visual hallucinations and denies homicidal id eations at this time - pt in the ED, pt states pt has been taking her prescribed oral medications but states they do not work and is requiring IV medications Past Medical history: anxiety,depression, Acute Gastroenteritis: [facility], consult for GI Dr. Natalia Vu appreciated advised outpatient panendoscopy, Acute dehydration: IV fluids, Asthma, Hypothyroidism, Hypertension ,Diabetes Hypercholesterolemia Past Surgical history: unknown Medications: unknown Social History: Denies smoking, ETOH, and drug use. Allergies: NKDA HPI: Poor Historian. REVIEW OF SYSTEMS: CONSTITUTIONAL: Denies acute: fever, diaphoresis, chills, generalized weakness. HEAD: Denies acute: headache, photophobia Eyes: Denies acute: Double vision, vision loss, eye pain, eye discharge. EARS: Denies acute: tinnitus, hearing loss, ear discharge, ear pain, THROAT: Denies acute: sore throat, swelling, difficulty swallowing , pain with swallowing, change in voice. NECK: Denies acute: neck pain, neck swelling, stiff neck. HEART: Denies acute : chest pain, palpitations, LUNGS: Denies acute: SOB, wheezing, cough, hemoptysis ABDOMEN: Denies acute: abdominal pain, Nausea, Vomiting, diarrhea, melena , hematemesis, hematochezia SKIN: Denies acute: rash, redness, lesions, itchiness. EXTREMITIES: Denies acute: calf pain, numbness, tingling, weakness, denies pain in extremity. Denies acute: Low back pain. Neuro: Denies acute: focal neurological deficit, motor or sensory focal neurological deficit, tremors, seizure like activity, confusion, dizziness, change in mental status, loss of bowel or bladder function, cauda equina like symptoms. : Denies acute: dysuria, hematuria, flank pain, increase in urinary frequency. PSYCH: Denies acute: hallucination, homicidal ideation. FEMALE: Denies acute: abnormal vaginal bleeding, foul odor, unusual discharge. PHYSICAL EXAM: General: ----mild----acute distress, awake and alert. Head: normocephalic, atraumatic. Neck: supple, trachea is midline, no swelling. Throat: Normal phonation. Eyes:, no erythema, no purulent discharge, no proptosis, no icterus. Heart: regular rate, regular rhythm, no significant murmur appreciated.. Occasional tachycardia in the setting of anxiety. Lungs: no apparent respiratory distress, Able to speak in full sentences. No wheezing, no rhonchi, no crackles. No stridors Clear to auscultation bilaterally. Abdomen: non tender to palpation, non distended, soft, no guarding, no rebound, + bowel sounds. Neuro: Awake, Alert, oriented to name, self, situation, follows commands GCS=15. Speech is normal. Skin: no petechia, no purpura, no cyanosis, non-pale, not jaundice. Lower extremities: --no - Pitting edema no deformity, no focal swelling, no calf TTP. Makes eye contact. moves all four extremities. Face: no apparent facial droop. Ambulating in the ED independently. ED COURSE: DISCLAIMER: This medical document was created using an electronic medical record system with voice recognition software and computerized dictation system. Although this document has been carefully reviewed, there might still be some phonetic and typographical errors. Occasional wrong-word or "sound-alike" substitutions may have occurred due to the inherent limitations of voice recognition software. These areas are purely typographical due to imperfections of the software programs and do not reflect any compromise in the patient's medical care. Please read the chart carefully and recognize, using context, where these substitutions have occurred. Chief Complaint: Suicidal Time Seen by MD: 11:36 Primary Care Provider: NONE Past Medical History PAST MEDICAL HISTORY: Anxiety, Asthma, Depression, HTN, UTI'S Surgical History: Cholecystectomy LEASE OPERATOR History: No Pertinent LEASE OPERATOR History Family History Family History: Reviewed,noncontributory to illness Social History Smoker: Non-Smoker Alcohol: Denies ETOH Use Drugs: Denies Drug Use Lives In: Home Was a procedure done? Was a procedure done?: No Psych Differential Dx Psych. Differential Dx: Anxiety, Bipolar Disorder, Depression, Hopeless, No symptoms Reported, Panic Disorder, Schizoprenia, Suicidal Suicidal Differential Dx: Alcohol Abuse, Anxiety, Bipolar Disorder, Conversion Disorder, Depression, Homicidal, Laceration, Panic Disorder, Personality Disorder, Schizoprenia, Substance Abuse X-Ray, Labs, Meds, VS Vital Signs Date Time Temp Pulse Resp B/P (MAP) Pulse Ox O2 Delivery O2 Flow Rate FiO2 11/02/24 21:00 77 16 11/02/24 20:00 91 11/02/24 19:30 Room Air* 0 21 11/02/24 19:30 97.8 83 18 119/71 (87) 95 97.8 11/02/24 16:00 107 11/02/24 12:33 104 18 95 Room Air* 0 21 11/02/24 12:20 98.3 104 18 120/93 (102) 95 98.3 11/02/24 11:46 98.3 117 18 120/93 (102) 95 98.3 Lab Test 11/02/24 13:17 11/02/24 12:33 11/02/24 11:46 Range/Units Troponin I High Sensitivity < 3 L < 3 L </=34 ng/L White Blood Count 6.8 4.4-10.8 10^3/uL Red Blood Count 4.51 4.0-5.20 10^6/uL Hemoglobin 14.3 12.2-16.2 g/dL Hematocrit 41.6 36.0-46.0 % Mean Corpuscular Volume 92.1 80.0-100.0 fL Mean Corpuscular Hemoglobin 31.7 28.0-32.0 pg Mean Corpuscular Hemoglobin Concent 34.4 32.0-36.0 g/dL Red Cell Distribution Width 14.2 11.8-14.3 % Platelet Count 208 140-450 10^3/uL Mean Platelet Volume 8.0 6.9-10.8 fL Neutrophils (%) (Auto) 74.6 37.0-80.0 % Lymphocytes (%) (Auto) 19.4 10.0-50.0 % Monocytes (%) (Auto) 4.4 0.0-12.0 % Eosinophils (%) (Auto) 1.0 0.0-7.0 % Basophils (%) (Auto) 0.6 0.0-2.0 % Neutrophils # (Auto) 5.1 1.6-8.6 10 ^3/uL Lymphocytes # (Auto) 1.3 0.4-5.4 10 ^3/uL Monocytes # (Auto) 0.3 0-1.3 10 ^3/uL Eosinophils # (Auto) 0.1 0-0.8 10 ^3/uL Basophils # (Auto) 0 0-0.2 10 ^3/uL Nucleated Red Blood Cells 0.0 % Sodium Level 144 136-145 mmol/L Potassium Level 3.5 3.5-5.1 mmol/L Chloride Level 110 H 98-107 mmol/L Carbon Dioxide Level 24 20-31 mmol/L Anion Gap 10 5-15 Blood Urea Nitrogen 12 9-23 mg/dL Creatinine 0.76 0.550-1.02 mg/dL Glomerular Filtration Rate Calc 86 >90 mL/min BUN/Creatinine Ratio 15.8 10.0-20.0 Serum Glucose 116 H 74-106 mg/dL Calcium Level 10.3 8.7-10.4 mg/dL Magnesium Level 2.3 1.6-2.6 mg/dL Total Bilirubin 0.4 0.2-1.0 mg/dL Aspartate Amino Transferase (AST) 32 13-40 U/L Alanine Aminotransferase (ALT) 43 H 7-40 U/L Alkaline Phosphatase 122 H 46-116 U/L Total Protein 7.2 5.7-8.2 g/dL Albumin 4.7 3.2-4.8 g/dL Salicylates Level < 3.0 -30 mg/dL Acetaminophen Level < 2.0 L 10.0-20.0 UG/ML Urine Color Light-yellow Yellow Urine Clarity Turbid H Clear Urine pH 6.5 5.0-9.0 Urine Specific [place] 1.018 1.001-1.035 Urine Protein Negative Negative Urine Ketones Negative Negative Urine Blood 1+ H Negative /uL Urine Nitrite Negative Negative Urine Bilirubin Negative Negative Urine Urobilinogen Normal Negative mg/dL Urine Leukocyte Esterase 3+ Negative /uL Urine RBC 17 0 - 4 /hpf Urine Microscopic WBC 91 H 0-5 /HPF Urine Squamous Epithelial Cells Few <5 /hpf Urine Bacteria None seen None Seen /hpf Urine Mucus Few None Seen Urine Glucose Normal Normal mg/dL Urine Opiates Screen Neg NEGATIVE Urine Fentanyl Screen Neg NEGATIVE Urine Barbiturates Screen Neg NEGATIVE Urine Phencyclidine Screen Neg NEGATIVE Urine Amphetamines Screen Neg NEGATIVE Urine Benzodiazepines Screen Neg NEGATIVE Urine Cocaine Screen Neg NEGATIVE Urine Cannabinoids Screen Neg NEGATIVE Current Medications Medications (Trade) Dose Ordered Sig/Sugar Route Start Time Stop Time Status Last Admin Hydroxyzine Pamoate (Vistaril Oral) 50 mg ONCE ONCE PO 11/02/24 13:15 11/02/24 13:16 DC 11/02/24 13:18 Lorazepam (Ativan Tablet) 1 mg ONCE ONCE PO 11/02/24 13:15 11/02/24 13:16 DC 11/02/24 13:18 Sodium Chloride 1,000 ml @ 1,000 mls/hr Q1H ONCE IV 11/02/24 13:30 11/02/24 14:29 DC 11/02/24 14:24 Lorazepam (Ativan Inj) 0.5 mg ONCE ONCE IV 11/02/24 16:15 11/02/24 16:16 DC 11/02/24 16:23 Time of 1ST Reevaluation: 14:04 (Patient is medically cleared for psychiatric evaluation) Reevaluation 1ST: Unchanged Time of 2ND Reevaluation: 22:34 Reevaluation 2ND: Improved Patient Education/Counseling: Diagnosis, Treatment Family Education/Counseling: No Family Present Assigned to Dr. Patient was signed out to Dr. Acuna. Patient has been medically cleared. Patient was seen by social science instructor and tele psych awaiting placement. Patient will n eed to be on psychiatric hold for suicidal ideation without a plan. Comments MDM: patient presented with the above HPI.---suicidal ideation and anxiety---workup was initiated. patient was found with the above mentioned diagnosis. the following medications were ordered: please refer to order lists of meds and tests obtained by myself Dr. Su. Patient ED course and VS have been stabilized. Patient has been reassessed in the ED and remained in a stable condition. Pertinent incidental findings were discussed with the patient and/or family. Patient/family voices understanding and is agreeable with plan. Patient has been observed in the ED adequate length of time to insure improvement/stability. Escalation of care considered: Consideration of escalation to observation or admission Patient was medically cleared. fat pressroom worker was consulted. Tele psych was consulted. Patient was placed on a tele psych hold. Patient was given some of her home medications in our records orally. All the reports of any imaging studies that were ordered by myself were reviewed by myself. Departure 1 Departure Time of Disposition: 14:04 Impression: Primary Impression: Anxiety Additional Impressions: Suicidal ideation Patient needs psychiatric hold for evaluation UTI (urinary tract infection) Disposition: 30 STILL A PATIENT Condition: Guarded Discharged With: Self Critical Care Note Critical Care Time?: Yes (35 min-critical care time only) I personally scribed for BRET SU DO ([email or web address]) on 11/02/24 at 12:03. Electronically submitted by Sahil Rae ([email or web address]). I personally scribed for BRET SU DO ([email or web address]) on 11/02/24 at 12:17. Electronically submitted by Sahil Rae ([email or web address]). I personally scribed for BRET SU DO ([email or web address]) on 11/02/24 at 12:43. Electronically submitted by Sahil Rae (NICHOLAS). I personally scribed for BRET SU DO ([email or web address]) on 11/02/24 at 13:28. Electro nically submitted by Sahil Rae ([email or web address]). BRET SU DO Nov 02, 2024 12:03
[2024-11-02 12:33] VITALS: PULSE 104; PULSE 117; RESP 18; O2SAT 95
[2024-11-02 12:45] LABS: Hematocrit 41.6 % (36.0-46.0); Hemoglobin 14.3 g/dL (12.2-16.2); Mean Corpuscular Hemoglobin 31.7 pg (28.0-32.0); Mean Corpuscular Volume 92.1 fL (80.0-100.0); Nucleated Red Blood Cells % 0.0 %
[2024-11-02 13:00] LABS: Calcium 10.3 mg/dL (8.7-10.4); Carbon Dioxide 24 mmol/L (20-31)
[2024-11-02 13:01] LABS: Albumin 4.7 g/dL (3.2-4.8); Anion Gap 10 (5-15); BUN/Creatinine Ratio 15.8 (10.0-20.0); Bilirubin, Total 0.4 mg/dL (0.2-1.0); Blood Urea Nitrogen 12 mg/dL (9-23); Magnesium 2.3 mg/dL (1.6-2.6); Sodium 144 mmol/L (136-145); Total Protein 7.2 g/dL (5.7-8.2)
[2024-11-02 13:02] LABS: Alanine Aminotransferase 43 U/L (7-40); Alkaline Phosphatase 122 U/L (46-116); Chloride 110 mmol/L (98-107); Glucose 116 mg/dL (74-106); Potassium 3.5 mmol/L (3.5-5.1)
[2024-11-02 13:03] LABS: Acetaminophen < 2.0 UG/ML (10.0-20.0); Salicylate < 3.0 mg/dL (-30)
[2024-11-02] MEDS: hydrOXYzine 25 MG TAB or CAP PO ONE (13:18)
[2024-11-02] MEDS: LORazepam 0.5 MG TAB PO ONE (13:18)
[2024-11-02] MEDS: SODIUM CHLORIDE 0.9% 1,000 ML IV ONE (14:24)
--- NOTE | 2024-11-02 14:42 | DVHINCON2 ---
Date of Service if different f: Nov 02, 2024 Time of Service: 14:42 Consultation (DUDLEY) Labs Laboratory Tests Test 11/02/24 12:33 11/02/24 13:17 White Blood Count 6.8 10^3/uL (4.4-10.8) Red Blood Count 4.51 10^6/uL (4.0-5.20) Hemoglobin 14.3 g/dL (12.2-16.2) Hematocrit 41.6 % (36.0-46.0) Mean Corpuscular Volume 92.1 fL (80.0-100.0) Mean Corpuscular Hemoglobin 31.7 pg (28.0-32.0) Mean Corpuscular Hemoglobin Concent 34.4 g/dL (32.0-36.0) Red Cell Distribution Width 14.2 % (11.8-14.3) Platelet Count 208 10^3/uL (140-450) Mean Platelet Volume 8.0 fL (6.9-10.8) Neutrophils (%) (Auto) 74.6 % (37.0-80.0) Lymphocytes (%) (Auto) 19.4 % (10.0-50.0) Monocytes (%) (Auto) 4.4 % (0.0-12.0) Eosinophils (%) (Auto) 1.0 % (0.0-7.0) Basophils (%) (Auto) 0.6 % (0.0-2.0) Neutrophils # (Auto) 5.1 10 ^3/uL (1.6-8.6) Lymphocytes # (Auto) 1.3 10 ^3/uL (0.4-5.4) Monocytes # (Auto) 0.3 10 ^3/uL (0-1.3) Eosinophils # (Auto) 0.1 10 ^3/uL (0-0.8) Basophils # (Auto) 0 10 ^3/uL (0-0.2) Nucleated Red Blood Cells 0.0 % Sodium Level 144 mmol/L (136-145) Potassium Level 3.5 mmol/L (3.5-5.1) Chloride Level 110 mmol/L (98-107) Carbon Dioxide Level 24 mmol/L (20-31) Anion Gap 10 (5-15) Blood Urea Nitrogen 12 mg/dL (9-23) Creatinine 0.76 mg/dL (0.550-1.02) Glomerular Filtration Rate Calc 86 mL/min (>90) BUN/Creatinine Ratio 15.8 (10.0-20.0) Serum Glucose 116 mg/dL (74-106) Calcium Level 10.3 mg/dL (8.7-10.4) Magnesium Level 2.3 mg/dL (1.6-2.6) Total Bilirubin 0.4 mg/dL (0.2-1.0) Aspartate Amino Transf (AST/SGOT) 32 U/L (13-40) Alanine Aminotransferase (ALT/SGPT) 43 U/L (7-40) Alkaline Phosphatase 122 U/L (46-116) Total Protein 7.2 g/dL (5.7-8.2) Albumin 4.7 g/dL (3.2-4.8) Salicylates Level < 3.0 mg/dL (-30) Acetaminophen Level < 2.0 UG/ML (10.0-20.0) Troponin I High Sensitivity < 3 ng/L (</=34) Vitals Vital Signs Date Time Temp Pulse Resp B/P (MAP) Pulse Ox O2 Delivery O2 Flow Rate FiO2 11/02/24 12:33 104 18 95 Room Air* 0 21 11/02/24 12:20 98.3 120/93 (102) 98.3 PSYCHIATRY CONSULTATION INITIAL EVALUATION REASON FOR CONSULT: SI, anxiety HPI: Pt gives her name, location, does not know the date, cannot give the year. Pt is here because she has anxiety for 2 mos, at times feels like she cant breathe, feels she is choking. Pt denies any precipitating events. Pt anxious all the time. Pt denies any aggravating factors or alleviating factors. She always feels the same. Pt says she still wants to shoot herself but would not if given a gun. She does report a history of cutting herself 2 mos ago due to anxiety. Anxiety is so bad now that she could cut herself, she cant take it anymore. Pt feels anxiety in her body. She feels fatigued. She can be a little short of breath. She denies chest pain. Pt reports sleep disturbance. Has not been able to sleep the past couple of nights. Pt denies she is taking medications currently. She was at [facility] inpatient days ago. Pt denies being sent home with medications while there. She got med there that did not help. PSYCHIATRIC HISTORY: DIAGNOSIS: No prior diagnosis. ADMISSIONS: Discharged from [facility] a few days ago, no prior admission. MEDICATION TRIALS: Recent admission only, no other med trials. OUTPATIENT CARE: None THERAPY: None SI/SELF-INJURY/SUICIDE ATTEMPT: self-injury only. has firearms locked up in the house. SUBSTANCE USE: Denies any RELEVANT MEDICAL HISTORY: Denies MENTAL STATUS EXAMINATION: 69-year-old woman who appears disheveled and older than her stated age. She presents as visibly anxious and emotionally dysphoric. She is alert and cooperative but oriented only to person and place; she is unable to state the current date or year. Her affect is constricted and mood is described as anxious and overwhelmed. Speech is spontaneous, with normal rate and tone, though content is marked by distress and hopelessness. Thought processes are linear, but content includes suicidal ideation. She endorses a desire to shoot herself but clarifies she would not act on it even if given a gun. She also reports a history of nonsuicidal self-injury (cutting), with recurrence of urges due to overwhelming anxiety. She describes somatic anxiety symptoms including shortness of breath and fatigue. She denies hallucinations, delusions, and current or past manic symptoms. Insight is limited, and judgment is impaired due to risk for self-harm. DIAGNOSIS: F41.9 Unspecified anxiety disorder Consider Major Depressive Disorder with anxious distress (rule out) Safety concern: Danger to self (DTS) ASSESSMENT: 69-year-old woman presents with persistent anxiety, severe psychological distress, and ongoing suicidal ideation in the context of functional impairment and recent discharge from inpatient psychiatric care. She is unable to sleep, denies current medication use, and describes unrelenting physical and emotional anxiety. Though she denies an active plan, she continues to express a desire to harm herself and endorses recent and potential self-injurious behavior. Her presentation is concerning for decompensation, and she is at elevated risk for self-harm. She is gravely impacted by her symptoms and not psychiatrically stable for outpatient care. Furthermore, she has no established outpatient care. Given these findings, she meets criteria for a 5150 hold under danger to self. RECOMMENDATIONS: 1.LEGAL: Initiate 5150 hold for danger to self (DTS). 2.DISPOSITION: Transfer to inpatient psychiatric facility for stabilization and medication management. Continue on 1:1 monitoring via a sitter or other staff. 3.MEDICATIONS: -May consider starting mirtazapine (Remeron) 7.515 mg nightly for mood, anxiety, and insomnia. -Benzodiazepine (e.g., lorazepam) may be considered as needed in the ED for acute anxiety, under appropriate monitoring. 4.MEDICAL CONSIDERATIONS: -Rule out underlying medical contributors to anxiety and confusion (e.g., metabolic disturbance, infection). -Ensure medical clearance prior to transfer. 5.OTHER: -Recommend obtaining prior discharge records from [facility] to clarify medication trials and response. -Engage social work and case management as needed for continuity of care and outpatient planning upon stabilization. YONAS SIMEON MD Nov 02, 2024 14:42
[2024-11-02] MEDS: LORazepam 2MG/ML-1ML VIAL IV ONE (16:23)
[2024-11-02 19:44] LABS: Urine Protein, UAD Negative (Negative)
[2024-11-02 20:08] LABS: Amphetamine Screen, Urine Neg (NEGATIVE); Barbiturate Scree,Urine Neg (NEGATIVE); Benzodiazephine Screen, Urine Neg (NEGATIVE); Cannabinoid Screen, Urine Neg (NEGATIVE); Cocaine Screen, Urine Neg (NEGATIVE); Opiate Scree,Urine Neg (NEGATIVE); Phencyclidine Screen, Urine Neg (NEGATIVE)
[2024-11-03] MEDS: cefTRIAXone 1GM/50ML D5W 50 ML IV ONE (00:01)
[2024-11-03 08:26] VITALS: PULSE 109
--- NOTE | 2024-11-03 09:29 | ED.PDOC ---
Departure 1 Departure Time of Disposition: 09:29 (Patient is medically cleared. The patient had a hold placed. Patient accepted as a transfer to [facility].) Impression: Primary Impression: Anxiety Additional Impressions: Suicidal ideation Patient needs psychiatric hold for evaluation UTI (urinary tract infection) Qualified Codes: N39.0 - Urinary tract infection, site not specified Disposition: [facility] Condition: Guarded Discharged With: Self DAYANNA RIBERA MD Nov 03, 2024 09:29
[2024-11-03 10:31] VITALS: BP 146/104; PULSE 79; RESP 15; TEMP 97.5; O2SAT 100
== END 2024-11-03 10:50 ==
LOC: ER 11:34
DX: F41.9 Anxiety disorder, unspecified (principal); R45.851 Suicidal ideations; N39.0 Urinary tract infection, site not specified; J45.909 Unspecified asthma, uncomplicated; F32.A Depression, unspecified; I10 Essential (primary) hypertension; E78.00 Pure hypercholesterolemia, unspecified; E11.9 Type 2 diabetes mellitus without complications; E03.9 Hypothyroidism, unspecified; Z91.51 Personal history of suicidal behavior; Z04.6 Encounter for general psychiatric examination, requested by authority; Z90.49 Acquired absence of other specified parts of digestive tract; Z87.440 Personal history of urinary (tract) infections
CPT/HCPCS: 36415; 80053; 80307; 80329; 81001; 83735; 84484; 85025; 96361; 96365; 96375; 99285; J0696; J2060; J7030; 99291

== ENCOUNTER 2025-03-07 02:19 | Inpatient (IN) | payer MEDICAID ==
[2025-03-07] VITALS (7 sets, daily range): BP systolic 120–125; BP diastolic 66–85; PULSE 82–112; RESP 17–18; TEMP 97.9–98.9; O2SAT 96–99
[~2025-03-07] VITALS: Ht 152.4 cm; Wt 72.7 kg
--- NOTE | 2025-03-07 02:27 | ECG ---
[facility] Test Date: 2025-03-07 Test Time: 02:21:01 Pat Name: PATRIZIA HOUSTON Department: ED Room: [address] [place] [address] Gender: F Purification Supervisor: JANNET : [id number] Requested By: CATALINO GOODMAN Order Number: [id number] Reading MD: Braxton Feliciano Measurements Intervals [place] Rate: 109 P: 46 NE: 150 QRS: -11 QRSD: 77 T: 30 QT: 340 QTc: 458 Interpretive Statements Sinus tachycardia Low voltage, precordial leads Baseline wander in lead(s) V5 Electronically Signed On 03-07-2025 18:55:21 PST by Braxton Feliciano Please click the below link to view image of tracing.
[2025-03-07] MEDS: ALBUTEROL SULF 2.5 MG/0.5ML(0.5%) NEB SOLN NEB ONE (02:51)
[2025-03-07] MEDS: IPRATROPIUM BROM 0.5 MG/2.5ML INH SOL NEB ONE (02:52)
--- NOTE | 2025-03-07 03:19 | ED.PDOC ---
History of Present Illness HPI Comments 69-year-old female who presents to the emergency department with shortness of breath ongoing and worsening for the past 2 weeks. Patient does have a past medical history of asthma. She states she has not used any albuterol for the past week. Patient does not have a primary care provider at this time. She has a history of hypothyroidism and gets her medication from the emergency department. Patient denies any fever, chills, flu-like symptoms, chest pain, cough, lower extremity edema. No known sick contacts. No recent travel. Patient reports the symptoms are similar to anxiety which she has had in the past. REVIEW OF SYSTEMS: As stated in HPI PHYSICAL EXAM: General: Awake, alert and oriented. No acute distress. Skin: Skin in warm, dry and intact. Appropriate color for ethnicity. HEENT: The head is normocephalic and atraumatic. Conjunctivae are clear without exudates or hemorrhage. Sclera is non-icteric. Eyelids are normal in appearance without swelling or lesions. Oral mucosa is pink and moist Neck: The neck is supple with normal range of motion. No JVD. Cardiac: Rapid rate, regular rhythm No murmurs, gallops, or rubs are auscultated. Respiratory: No signs of respiratory distress. Lung sounds are clear in all lobes bilaterally without rales, rhonchi, or wheezes. Abdominal: Abdomen is soft, non-tender without distention, guarding or rigidity. Bowel sounds are present and normoactive in all four quadrants. Extremities: Lower extremities without edema. Neurological: The patient is awake, alert and oriented to person, place, and time with normal speech. Speech is clear. There is no facial asymmetry. Psychiatric: Appropriate mood and affect. Good judgement and insight. Chief Complaint: Shortness of Breath Time Seen by MD: 02:23 Primary Care Provider: NONE Allergies: Coded Allergies: NO KNOWN ALLERGIES (Unverified , 01/22/17) Home Meds Active Scripts Sulfamethoxazole W/Trimethopri (Bactrim Ds Tablet) 1 Tab Tb, 1 TAB PO BID for 5 Days, #10 TAB 0 Refills Prov:YEMI SOSA NP 09/12/24 Cephalexin Monohydrate (Cephalexin) 500 Mg Cap, 500 MG PO Q6HR for 7 Days, #7 CAP Prov:FELIPA ALVAREZ MD 08/09/24 Pantoprazole Sodium Sesquihydr (Pantoprazole Sodium) 40 Mg Tab, 40 MG PO BID, #30 TAB Prov:RAMON SCRUGGS MD 03/29/24 Reported Medications Atorvastatin Calcium (ATORVASTATIN CALCIUM) 10 Mg Tab, 1 TAB PO HS 03/07/25 Levothyroxine Sodium (Levothyroxine Sodium) 50 Mcg Tab, 1 TAB PO DAILY 03/07/25 Polyethylene Glycol 3350 ([id number]) 17 Gm/Scoop Pow, 17 GM PO DAILY PRN for FOR CONSTIPATION for 30 Days, #510 03/27/24 Budesonide-Formoterol Fumarate (Budesonide/Formoterol Fum 80-4.5 Mcg/Act) 1 Aer Aer, 1 PUFF IN for 60 Days, #10.2 03/27/24 Triamcinolone Acetonide (Kenalog) 1 Applic Ap, 1 APPLIC TOP TID for 30 Days, #30 03/27/24 Ibuprofen (Ibuprofen) 400 Mg Tab, 1 TAB PO BID for 30 Days, #60 03/27/24 Loratadine (Claritin) 10 Mg Tab, 1 TAB PO DAILY for 30 Days, #30 03/27/24 Fluticasone Propionate (Nasal) (Fluticasone Propionate Na) 50 Mcg/Act Spr, 2 SPR AYS EACHNOSTRI DAILY for 30 Days, #16 03/27/24 Venlafaxine Hcl (Venlafaxine Hcl Er) 75 Mg Cap, 1 CAP PO QAM for 30 Days, #30 03/27/24 Quetiapine Fumerate (QUETIAPINE FUMARATE) 300 Mg Tab, 1 TAB PO DAILY for 30 Days , #30 03/27/24 Omeprazole (Omeprazole Dr) 40 Mg Cap, 1 CAP PO DAILY for 30 Days, #30 03/27/24 Docusate Sodium (Docusate Sodium) 100 Mg Cap, 1 CAP PO BIDPRN PRN for constipation 03/27/24 Montelukast Sodium (MONTELUKAST SODIUM) 10 Mg Tab, 1 TAB PO DAILY for allergies 12/18/23 Lorazepam (Lorazepam) 1 Mg Tab, 1 TAB PO DAILYPRN PRN for ANXIETY 12/18/23 Amlodipine Besylate (Amlodipine Besylate) 2.5 Mg Tab, 1 TAB PO DAILY 12/18/23 Hydroxyzine Hcl (Hydroxyzine Hcl) 50 Mg Tab, 1 TAB PO TID 12/18/23 Discontinued Reported Medications Atorvastatin Calcium (Lipitor) 10 Mg Tab, 1 TAB PO QAM for 30 Days, #30 03/27/24 Atorvastatin Calcium (ATORVASTATIN CALCIUM) 40 Mg Tab, 40 MG PO HS, TAB 12/18/23 Levothyroxine Sodium (Levothyroxine Sodium) 25 Mcg Tab, 1 TAB PO DAILY 12/18/23 Discontinued Scripts Levofloxacin Hemihydrate (LEVAQUIN 500 MG) 500 Mg Tab, 1 TAB PO DAILY, #10 TAB Prov:RAMON SCRUGGS MD 03/29/24 Metronidazole (Flagyl) 500 Mg Tab, 1 TAB PO TID, #30 TAB Prov:RAMON SCRUGGS MD 03/29/24 Mode of Arrival: EMS Past Medical History PAST MEDICAL HISTORY: Anxiety, Asthma, Depression, HTN, UTI'S Surgical History: Cholecystectomy [employer] WORKER History: No Pertinent [employer] WORKER History Family History Family History: Reviewed,noncontributory to illness Social History Smoker: Non-Smoker Alcohol: Denies ETOH Use Drugs: Denies Drug Use Lives In: Home Was a procedure done? Was a procedure done?: No EKG EKG : Comments Sinus rhythm, rate of 109, no STEMI. Differential Dx Considerations may include: Differential diagnoses considered includebut arenot limited to acute Bronchitis, Asthma, COPD, Pneumothorax, PE, CHF, Pulmonary HTN, Anemia, CO Poisoning, Methemoglobinemia, Hyperventilation, Metabolic Acidosis, Pulmonary Edema, Pneumonia, ACS, Pericardial Tamponade, Anxiety, other X-Ray, Labs, Meds, VS Vital Signs Date Time Temp Pulse Resp B/P (MAP) Pulse Ox O2 Delivery O2 Flow Rate FiO2 03/07/25 06:37 112 18 98 Room Air* 0 98 21 03/07/25 05:46 104 03/07/25 05:03 98.9 112 18 126/90 (102) 98 98.9 03/07/25 02:52 16 96 Room Air* 0 03/07/25 02:21 109 03/07/25 02:20 98 Room Air* 0 03/07/25 02:20 97.5 112 20 144/96 98 97.5 Lab Test 03/07/25 06:13 03/07/25 03:51 03/07/25 02:56 Range/Units Troponin I High Sensitivity < 3 L < 3 L < 3 L </=34 ng/L Thyroid Stimulating Hormone (TSH) 1.56 0.55-4.78 uIU/mL White Blood Count 6.4 4.4-10.8 10^3/uL Red Blood Count 5.03 4.0-5.20 10^6/uL Hemoglobin 16.3 H 12.2-16.2 g/dL Hematocrit 47.0 H 36.0-46.0 % Mean Corpuscular Volume 93.6 80.0-100.0 fL Mean Corpuscular Hemoglobin 32.4 H 28.0-32.0 pg Mean Corpuscular Hemoglobin Concent 34.6 32.0-36.0 g/dL Red Cell Distribution Width 13.1 11.8-14.3 % Platelet Count 219 140-450 10^3/uL Mean Platelet Volume 8.4 6.9-10.8 fL Neutrophils (%) (Auto) 47.4 37.0-80.0 % Lymphocytes (%) (Auto) 38.6 10.0-50.0 % Monocytes (%) (Auto) 7.4 0.0-12.0 % Eosinophils (%) (Auto) 5.8 0.0-7.0 % Basophils (%) (Auto) 0.8 0.0-2.0 % Neutrophils # (Auto) 3.1 1.6-8.6 10 ^3/uL Lymphocytes # (Auto) 2.5 0.4-5.4 10 ^3/uL Monocytes # (Auto) 0.5 0-1.3 10 ^3/uL Eosinophils # (Auto) 0.4 0-0.8 10 ^3/uL Basophils # (Auto) 0 0-0.2 10 ^3/uL Nucleated Red Blood Cells 0.1 % D-Dimer, Quantitative 0.33 0.0-0.49 mg/L FEU Sodium Level 144 136-145 mmol/L Potassium Level 4.2 3.5-5.1 mmol/L Chloride Level 106 98-107 mmol/L Carbon Dioxide Level 27 20-31 mmol/L Anion Gap 11 5-15 Blood Urea Nitrogen 11 9-23 mg/dL Creatinine 0.69 0.550-1.02 mg/dL Glomerular Filtration Rate Calc 95 >90 mL/min BUN/Creatinine Ratio 15.9 10.0-20.0 Serum Glucose 105 74-106 mg/dL Calcium Level 10.4 8.7-10.4 mg/dL Total Bilirubin 0.9 0.2-1.0 mg/dL Aspartate Amino Transferase (AST) 38 13-40 U/L Alanine Aminotransferase (ALT) 45 H 7-40 U/L Alkaline Phosphatase 90 46-116 U/L B-Type Natriuretic Peptide 2.79 0-100 pg/mL Total Protein 7.9 5.7-8.2 g/dL Albumin 4.7 3.2-4.8 g/dL Current Medications Medications (Trade) Dose Ordered Sig/Sugar Route Start Time Stop Time Status Last Admin Albuterol (Ventolin Medneb) 2.5 mg ONCE ONCE NEB 03/07/25 02:45 03/07/25 02:46 DC 03/07/25 02:51 Ipratropium [place] (Atrovent Medneb) 0.5 mg ONCE ONCE NEB 03/07/25 02:45 03/07/25 02:46 DC 03/07/25 02:52 Hydroxyzine Pamoate (Vistaril Oral) 50 mg ONCE ONCE PO 03/07/25 05:00 03/07/25 05:03 DC 03/07/25 05:11 Sodium Chloride 1,000 ml @ 1,000 mls/hr Q1H ONCE IV 03/07/25 06:00 03/07/25 06:59 DC 03/07/25 06:00 Time of 1ST Reevaluation: 03:18 Reevaluation 1ST: Unchanged Patient Education/Counseling: Need For Follow Up Family Education/Counseling: No Family Present SEPSIS Sepsis Screen Date sepsis recognized/suspect: Mar 07, 2025 Time Sepsis recognized/suspect: 219 Recent Procedure: No On Antibiotic Therapy: No Respiratory Rate >20: No Heart Rate >90: Yes Temp<36 C (96.8 F) or >38.3 C: No SBP <90 or MAP <65 mmHG: No New Acute Mental Status Change: No Is the patient on CPAP, BIPAP,: No Physician Orders Electrocardigram (03/07/25 02:24) Chest Xray 1 View (03/07/25 02:42) Electrocardigram (03/07/25 05:39) Vital Signs Date Time Temp Pulse Resp B/P (MAP) Pulse Ox O2 Delivery O2 Flow Rate FiO2 03/07/25 06:37 112 18 98 Room Air* 0 98 21 03/07/25 05:46 104 03/07/25 05:03 98.9 112 18 126/90 (102) 98 98.9 03/07/25 02:52 16 96 Room Air* 0 21 03/07/25 02:21 109 03/07/25 02:20 98 Room Air* 0 21 03/07/25 02:20 97.5 112 20 144/96 98 97.5 Laboratory Tests Test 03/07/25 02:56 White Blood Count 6.4 10^3/uL (4.4-10.8) Departure 1 Departure Time of Disposition: 05:49 Impression: Primary Impression: Dyspnea Additional Impression: Tachycardia Disposition: ADMITTED INPATIENT Condition: Stable Comments Patient continues to report shortness of breath. She is persistently tachycardic. Patient admitted to hospitalist service for further treatment, evaluation and monitoring. Critical Care Note Critical Care Time?: No Stability Stability form required: No Heart Score Heart Score: Heart Score Response (Comments) Value History N/A 0 EKG N/A 0 Age N/A 0 Risk Factors N/A 0 Troponin N/A 0 Total 0 CATALINO GOODMAN MD Mar 07, 2025 03:19
[2025-03-07 03:26] LABS: Hematocrit 47.0 % (36.0-46.0); Hemoglobin 16.3 g/dL (12.2-16.2); Mean Corpuscular Hemoglobin 32.4 pg (28.0-32.0); Mean Corpuscular Volume 93.6 fL (80.0-100.0); Nucleated Red Blood Cells % 0.1 %
[2025-03-07 03:43] LABS: Albumin 4.7 g/dL (3.2-4.8); Alkaline Phosphatase 90 U/L (46-116); Anion Gap 11 (5-15); BUN/Creatinine Ratio 15.9 (10.0-20.0); Blood Urea Nitrogen 11 mg/dL (9-23); Carbon Dioxide 27 mmol/L (20-31); Chloride 106 mmol/L (98-107); Glucose 105 mg/dL (74-106); Potassium 4.2 mmol/L (3.5-5.1); Sodium 144 mmol/L (136-145); Total Protein 7.9 g/dL (5.7-8.2)
[2025-03-07 03:44] LABS: Bilirubin, Total 0.9 mg/dL (0.2-1.0)
--- NOTE | 2025-03-07 04:02 | DVH ---
CHEST RADIOGRAPH Indication: Shortness of breath Technique: Single frontal view of the chest was obtained Comparison: XY CHEST XRAY 1 VIEW on DOS: 12/17/23, XY CHEST PORTABLE on DOS: 10/06/23, XY CHEST TWO VIEWS ROUTINE on DOS: 06/10/23, XY CHEST XRAY 1 VIEW on DOS: 04/25/23, XY CHEST PORTABLE on DOS: 11/17/22 FINDINGS: Lines and Tubes: None Lungs: No focal consolidation. Pleura: No effusion. No pneumothorax. Cardiomediastinal contours: Unremarkable Bones: No acute osseous abnormality. IMPRESSION: No acute cardiopulmonary disease.
[2025-03-07 04:07] LABS: Alanine Aminotransferase 45 U/L (7-40); Calcium 10.4 mg/dL (8.7-10.4)
[2025-03-07] MEDS: hydrOXYzine 25 MG TAB or CAP PO ONE (05:11)
--- NOTE | 2025-03-07 05:52 | ECG ---
[facility] Test Date: 2025-03-07 Test Time: 05:46:50 Pat Name: PATRIZIA HOUSTON Department: ED Room: [address] [place] [address] Gender: F Tool Straightener: JANNET : 1955 Requested By: CATALINO GOODMAN Order Number: [id number] Reading MD: Braxton Feliciano Measurements Intervals [place] Rate: 104 P: 64 ND: 141 QRS: 35 QRSD: 88 T: 31 QT: 355 QTc: 467 Interpretive Statements Sinus tachycardia Electronically Signed On 03-07-2025 18:55:26 PST by Braxton Feliciano Please click the below link to view image of tracing.
[2025-03-07] MEDS: SODIUM CHLORIDE 0.9% 1,000 ML IV ONE ×2 (06:00→11:22)
[2025-03-07] MEDS ORDERED: MORPHINE SULFATE INJ 2 MG/ml SYRG IV PRN (07:45)
[2025-03-07] MEDS ORDERED: ACETAMINOPHEN 325 MG TAB PO PRN (07:45)
[2025-03-07] MEDS ORDERED: HYDROcodone-ACET 5/325MG TAB PO PRN (07:45)
[2025-03-07] MEDS ORDERED: NITROGLYCERIN 0.4 MG SL TAB SL PRN (07:45)
[2025-03-07] MEDS ORDERED: ATOR10TA52 PO (07:54)
[2025-03-07] MEDS ORDERED: LEVO50TA7 PO (07:54)
--- NOTE | 2025-03-07 09:22 | DVHHP2 ---
History of Present Illness Reason for Visit: Shortness of breath History of Present Illness Jose Mcginnis is a 22-vys[age]-lbx-female with past medical history of hypothyroidism, depression, anxiety, asthma, and hypertension, who came to the hospital for shortness of breath. Patient states her shortness of breath started about 1 week ago. She decided to come to the hospital because it was worsening. While in the ER she was found to be tachycardic. Patient is a poor historian and is not able to tell me what medications she is taking. She states she was recently diagnosed with thyroid problems and ran out of her medicine yesterday. She states that is the only medication she is taking. She also states she does not have a primary care provider to follow up with. Past Surgical History: Other (Partial right nephrectomy) Smoke: No ALCOHOL: none Drugs: None Lives: with Family Review of Systems Constitutional: No: Fever, Chills, Sweats, Weakness, Malaise, Other Eyes: No: Pain, Vision change, Conjunctivae inflammation, Eyelid inflammation, Other, Redness ENT: No: Ear pain, Ear discharge, Nose pain, Nose discharge, Nose congestion, Mouth pain, Mouth swelling, Throat pain, Throat swelling, Other Respiratory: Shortness of breath, SOB with excertion, Wheezing; No: Cough, Dry, Hemoptysis, Pleuritic Pain, Sputum, Wheezing, Other Cardiovascular: No: Chest Pain, Palpitations, Orthopnea, Paroxysmal Noc. Dyspnea, Edema, Lt Headedness, Other Gastrointestinal: No: Nausea, Vomiting, Abdominal Pain, Diarrhea, Constipation, Melena, Hematochezia, Other Genitourinary: No Dysuria, No Frequency, No Incontinence, No Hematuria, No Retention, No Other Musculoskeletal: No: other, neck pain, shoulder pain, arm pain, back pain, hand pain, leg pain, foot pain Skin: No: Rash, Lesions, Jaundice, Bruising, Other Neurological: No: Weakness, Numbness, Incoordination, Change in speech, Confusion, Seizures, Other Allergies: Coded Allergies: NO KNOWN ALLERGIES (Unverified , 01/22/17) Medications Current Medications Medications Dose Ordered Sig/Sugar Route Start Time Stop Time Status Last Admin Dose Admin Acetaminophen/ Hydrocodone Bitart 1 tab Q4HP PRN PO 03/07/25 07:45 UNV Ondansetron HCl 4 mg Q4HP PRN IV 03/07/25 07:45 UNV Docusate Sodium 100 mg BIDPRN PRN PO 03/07/25 07:45 UNV Acetaminophen 650 mg Q6HP PRN PO 03/07/25 07:45 UNV Nitroglycerin 0.4 mg Q5MINP PRN SL 03/07/25 07:45 UNV Exam Vital Signs Vital Signs Date Time Temp Pulse Resp B/P (MAP) Pulse Ox O2 Delivery O2 Flow Rate FiO2 03/07/25 06:37 112 18 98 Room Air* 0 98 21 03/07/25 05:03 98.9 126/90 (102) 98.9 General Appearance: Alert, Oriented X3, mild distress HEENT: Atraumatic, PERRLA Respiratory: Other (Diminished breath sounds) Cardiovascular: Normal S1, Normal S2, Other (ST) Abdominal: Normal bowel sounds, Soft, No tenderness, No hepatospenomegaly Extremities: No clubbing, No cyanosis, No edema, Normal pulses, No tend erness/swelling Skin: No rashes, No breakdown, No significant lesion Neuro: Normal gait, Normal speech, Strength at 5/5 X4 ext Psych/Mental Status: Mental status NL, Mood NL Labs/Xrays Labs Test 03/07/25 06:13 03/07/25 02:56 Range/Units Troponin I High Sensitivity < 3 L </=34 ng/L White Blood Count 6.4 4.4-10.8 10^3/uL Red Blood Count 5.03 4.0-5.20 10^6/uL Hemoglobin 16.3 H 12.2-16.2 g/dL Hematocrit 47.0 H 36.0-46.0 % Mean Corpuscular Volume 93.6 80.0-100.0 fL Mean Corpuscular Hemoglobin 32.4 H 28.0-32.0 pg Mean Corpuscular Hemoglobin Concent 34.6 32.0-36.0 g/dL Red Cell Distribution Width 13.1 11.8-14.3 % Platelet Count 219 140-450 10^3/uL Mean Platelet Volume 8.4 6.9-10.8 fL Neutrophils (%) (Auto) 47.4 37.0-80.0 % Lymphocytes (%) (Auto) 38.6 10.0-50.0 % Monocytes (%) (Auto) 7.4 0.0-12.0 % Eosinophils (%) (Auto) 5.8 0.0-7.0 % Basophils (%) (Auto) 0.8 0.0-2.0 % Neutrophils # (Auto) 3.1 1.6-8.6 10 ^3/uL Lymphocytes # (Auto) 2.5 0.4-5.4 10 ^3/uL Monocytes # (Auto) 0.5 0-1.3 10 ^3/uL Eosinophils # (Auto) 0.4 0-0.8 10 ^3/uL Basophils # (Auto) 0 0-0.2 10 ^3/uL Nucleated Red Blood Cells 0.1 % D-Dimer, Quantitative 0.33 0.0-0.49 mg/L FEU Sodium Level 144 136-145 mmol/L Potassium Level 4.2 3.5-5.1 mmol/L Chloride Level 106 98-107 mmol/L Carbon Dioxide Level 27 20-31 mmol/L Anion Gap 11 5-15 Blood Urea Nitrogen 11 9-23 mg/dL Creatinine 0.69 0.550-1.02 mg/dL Glomerular Filtration Rate Calc 95 >90 mL/min BUN/Creatinine Ratio 15.9 10.0-20.0 Serum Glucose 105 74-106 mg/dL Calcium Level 10.4 8.7-10.4 mg/dL Total Bilirubin 0.9 0.2-1.0 mg/dL Aspartate Amino Transferase (AST) 38 13-40 U/L Alanine Aminotransferase (ALT) 45 H 7-40 U/L Alkaline Phosphatase 90 46-116 U/L B-Type Natriuretic Peptide 2.79 0-100 pg/mL Total Protein 7.9 5.7-8.2 g/dL Albumin 4.7 3.2-4.8 g/dL CHEST RADIOGRAPH FINDINGS: Lines and Tubes: None Lungs: No focal consolidation. Pleura: No effusion. No pneumothorax. Cardiomediastinal contours: Unremarkable Bones: No acute osseous abnormality. IMPRESSION: No acute cardiopulmonary disease. SEPSIS Sepsis Screen Date sepsis recognized/suspect: Mar 07, 2025 Time Sepsis recognized/suspect: 0642 Recent Procedure: No On Antibiotic Therapy: No Respiratory Rate >20: No Heart Rate >90: No Temp<36 C (96.8 F) or >38.3 C: No SBP <90 or MAP <65 mmHG: No New Acute Mental Status Change: No Is the patient on CPAP, BIPAP,: No Physician Orders Chest Xray 1 View (03/07/25 02:42) Code Status (03/07/25 07:45) Hydrocodone-Acet 5/325mg Tab ([place] 5/32 (03/07/25 07:45) Ondansetron Hcl (Zofran) (03/07/25 07:45) Docusate Sodium Capsule (Colace Capsule) (03/07/25 07:45) Complete Blood Count (03/08/25 04:00) Comprehensive Metabolic Panel (03/08/25 04:00) Condition: Serious (03/07/25 07:45) Acetaminophen Tablet (Tylenol Tablet) (03/07/25 07:45) Nitroglycerin Sublingual (Ntrostat Subli (03/07/25 07:45) Morphine Sulfate Injection (03/07/25 07:45) Stat Ekg For Chest Pain (03/07/25 07:45) Notify Md Of Changes From Base (03/07/25 07:45) Sash Installer For 24 Hours (03/07/25 07:45) Emergency Dysrhythmia Protocol (03/07/25 07:45) Rhythm Strips Once Every Shift (03/07/25 07:45) Oxygen By Nasal Cannula (03/07/25 07:45) Loratadine Tablet (Claritin Tablet) (03/07/25 10:00) Admit (03/07/25 07:45) Thyroid Stimulating Hormone (03/07/25 07:54) Vital Signs Date Time Temp Pulse Resp B/P (MAP) Pulse Ox O2 Delivery O2 Flow Rate FiO2 03/07/25 06:37 112 18 98 Room Air* 0 98 21 03/07/25 05:46 104 03/07/25 05:03 98.9 112 18 126/90 (102) 98 98.9 03/07/25 02:52 16 96 Room Air* 0 21 03/07/25 02:21 109 03/07/25 02:20 98 Room Air* 0 21 03/07/25 02:20 97.5 112 20 144/96 98 97.5 Laboratory Tests Test 03/07/25 02:56 White Blood Count 6.4 10^3/uL (4.4-10.8) Medications Medications Dose Ordered Sig/Sugar Route Start Time Stop Time Status Last Admin Dose Admin Albuterol 2.5 mg ONCE ONCE NEB 03/07/25 02:45 03/07/25 02:46 DC 03/07/25 02:51 2.5 MG Hydroxyzine Pamoate 50 mg ONCE ONCE PO 03/07/25 05:00 03/07/25 05:03 DC 03/07/25 05:11 50 MG Ipratropium [place] 0.5 mg ONCE ONCE NEB 03/07/25 02:45 03/07/25 02:46 DC 03/07/25 02:52 0.5 MG Sodium Chloride 1,000 ml @ 1,000 mls/hr Q1H ONCE IV 03/07/25 06:00 03/07/25 06:59 DC 03/07/25 06:00 1,000 MLS/HR Assessment/Plan Assessment/Plan Assessment: Acute asthma exacerbation, Hypothyroidism, Hypertension, Dyspnea, Sinus tachycardia, Depression, Plan: Admit to Med-Surg, Breathing treatments, IV steroids, Supplemental oxygen as needed, TSH, T3, T4, Start low dose beta genevieve, Home medications reconciled, Plan discussed with: Patient My Orders Orders - [facility] Procedure Category Date Status Time Code Status CODE 03/07/25 Transmitted 07:45 Hydrocodone-Acet PHA 03/07/25 Transmitted 5/325mg Tab ([place] 07:45 Ondansetron Hcl PHA 03/07/25 Transmitted (Zofran) 07:45 Docusate Sodium PHA 03/07/25 Transmitted Capsule (Colace 07:45 Complete Blood Count LAB 03/08/25 Verified 04:00 Comprehensive LAB 03/08/25 Verified Metabolic Panel 04:00 Condition: Serious [facility] 03/07/25 Transmitted 07:45 Acetaminophen Tablet [facility] 03/07/25 Transmitted (Tylenol Tablet) 07:45 Nitroglycerin PHA 03/07/25 Transmitted Sublingual (Ntrostat 07:45 Morphine Sulfate PHA 03/07/25 Transmitted Injection 07:45 Stat Ekg For Chest [facility] 03/07/25 Transmitted Pain 07:45 Notify Of Changes [facility] 03/07/25 Transmitted From Base 07:45 Sash Installer For [facility] 03/07/25 Transmitted 24 Hours 07:45 Emergency Dysrhythmia [facility] 03/07/25 Transmitted Protocol 07:45 Rhythm Strips Once [facility] 03/07/25 Transmitted Every Shift 07:45 Oxygen By Nasal RT 03/07/25 Transmitted Cannula 07:45 Loratadine Tablet [facility] 03/07/25 Transmitted (Claritin Tablet) 10:00 Admit ADMIT 03/07/25 Transmitted 07:45 Thyroid Stimulating LAB 03/07/25 Verified Hormone 07:54 Date of Service: Mar 07, 2025 Billing Provider: CHELE SONG Common Visit Codes: [id number] INP/OBS CARE (MOD) CHELE SONG Mar 07, 2025 09:22
[2025-03-07 10:15] LABS: Free T3 3.09 pg/mL (2.3-4.2)
[2025-03-07 10:16] LABS: Free T4 (Free Thyroxine) 1.42 ng/dL (0.89-1.76)
[2025-03-07] MEDS: LORATADINE 10 MG TAB PO SCH (11:15)
[2025-03-07] MEDS: methylPREDNISolone SOD SUCC 40 MG/ML VL IV SCH (11:16)
[2025-03-07] MEDS: METOPROLOL TARTRATE 25 MG TAB PO SCH (11:16)
--- NOTE | 2025-03-07 13:38 | DVHPN2 ---
Reviewed: Care Plan, H&P, Labs, Medications, Previous Orders, Radiology Changes from previous H/P or p: No Changes Eyes: No Pain, No Vision change, No Conjunctivae inflammation, No Eyelid inflammation, No Other, No Redness ENT: No Ear pain, No Ear discharge, No Nose pain, No Nose discharge, No Nose congestion, No Mouth pain, No Mouth swelling, No Throat pain, No Throat swelling, No Other Cardiovascular: No Chest Pain, No Palpitations, No Orthopnea, No Paroxysmal Noc. Dyspnea, No Edema, No Lt Headedness, No Other Respiratory: No Cough, No Dry; Shortness of breath, SOB with excertion, W heezing; No Hemoptysis, No Pleuritic Pain, No Sputum, No Other Gastrointestinal: No Nausea, No Vomiting, No Abdominal Pain, No Diarrhea, No Constipation, No Melena, No Hematochezia, No Other Genitourinary: No Dysuria, No Frequency, No Incontinence, No Hematuria, No Retention, No Other Musculoskeletal: No other, No neck pain, No shoulder pain, No arm pain, No back pain, No hand pain, No leg pain, No foot pain Skin: No Rash, No Lesions, No Jaundice, No Bruising, No Other Objective Vitals Vital Signs Date Time Temp Pulse Resp B/P (MAP) Pulse Ox O2 Delivery O2 Flow Rate FiO2 03/07/25 13:00 97.9 85 17 125/85 (98) 97 97.9 03/07/25 08:32 0.0 21 03/07/25 06:37 Room Air* Intake/Output Intake and Output 03/07/25 07:00 Intake Total 1000 ml Balance 1000 ml Intake IV Total 1000 ml Medications Current Medications Medications Dose Ordered Sig/Sugar Route Start Time Stop Time Status Last Admin Dose Admin Acetaminophen/ Hydrocodone Bitart 1 tab Q4HP PRN PO 03/07/25 07:45 Ondansetron HCl 4 mg Q4HP PRN IV 03/07/25 07:45 Docusate Sodium 100 mg BIDPRN PRN PO 03/07/25 07:45 Acetaminophen 650 mg Q6HP PRN PO 03/07/25 07:45 Nitroglycerin 0.4 mg Q5MINP PRN SL 03/07/25 07:45 Morphine Sulfate 2 mg Q30M PRN IV 03/07/25 07:45 Loratadine 10 mg DAILY PO 03/07/25 10:00 03/07/25 11:15 10 MG Ipratropium [place] 0.5 mg Q4HPRN PRN NEB 03/07/25 08:00 Albuterol 2.5 mg Q4HPRN PRN NEB 03/07/25 08:00 Methylprednisolone Sodium Succinate 40 mg BID IV 03/07/25 10:00 03/07/25 11:16 40 MG Metoprolol Tartrate 12.5 mg BID PO 03/07/25 10:00 03/07/25 11:16 12.5 MG Laboratory Results Laboratory Tests 03/07/25 02:56 Chemistry Test 03/07/25 02:56 Albumin 4.7 g/dL (3.2-4.8) Calcium Level 10.4 mg/dL (8.7-10.4) Total Protein 7.9 g/dL (5.7-8.2) Coagulation Test 03/07/25 02:56 D-Dimer, Quantitative 0.33 mg/L FEU (0.0-0.49) Cardiac Markers Test 03/07/25 02:56 B-Type Natriuretic Peptide 2.79 pg/mL (0-100) LFT Test 03/07/25 02:56 Alanine Aminotransferase (ALT) 45 U/L (7-40) H Alkaline Phosphatase 90 U/L (46-116) Aspartate Amino Transferase (AST) 38 U/L (13-40) Total Bilirubin 0.9 mg/dL (0.2-1.0) HgA1c, TSH Test 03/07/25 06:13 Thyroid Stimulating Hormone (TSH) 1.56 uIU/mL (0.55-4.78) Labs and/or images reviewed: Labs reviewed by me, Image(s) reviewed by me Assessment/Plan Assessment/Plan Acute asthma exacerbation, albuterol Atrovent Solu-Medrol Hypothyroidism, Hypertension, Dyspnea, Sinus tachycardia, Depression, Janee test pending Flu test pending Time spent 55 minutes Advanced care planning time 20 minutes Patient is full code Plan discussed with: Patient Date of Service: Mar 07, 2025 Billing Provider: RAMON SCRUGGS MD Common Visit Codes: [id number] INP/OBS CARE(HIGH) Secondary Visit Codes: [id number] CARE PLAN 30 MINUTES RAMON SCRUGGS MD Mar 07, 2025 13:38
[2025-03-07 19:16] LABS: COVID19 ANTIGEN SOFIA FIA NEGATIVE (NEGATIVE)
[2025-03-07] MEDS: ALBUTEROL SULF 2.5 MG/0.5ML(0.5%) NEB SOLN NEB PRN (23:56)
[2025-03-07] MEDS: IPRATROPIUM BROM 0.5 MG/2.5ML INH SOL NEB PRN (23:56)
[2025-03-08 01:00] VITALS: BP 128/83; PULSE 84; RESP 17; TEMP 98.7; O2SAT 97
[2025-03-08 02:23] VITALS: BP 142/93; PULSE 105; RESP 19; TEMP 97.6; O2SAT 97
[2025-03-08] MEDS: ONDANSETRON HCL 4 MG/2 ML VIAL IV PRN (02:44)
[2025-03-08] MEDS: LORazepam 0.5 MG TAB PO ONE (03:10)
[2025-03-08] MEDS: MELATONIN 5 MG TAB PO ONE (03:52)
[2025-03-08 05:00] VITALS: BP 130/83; PULSE 105; RESP 19; TEMP 98; O2SAT 97
[2025-03-08 06:04] LABS: Hematocrit 46.8 % (36.0-46.0); Hemoglobin 16.0 g/dL (12.2-16.2); Mean Corpuscular Hemoglobin 32.1 pg (28.0-32.0); Mean Corpuscular Volume 93.9 fL (80.0-100.0); Nucleated Red Blood Cells % 0.0 %
[2025-03-08 06:39] LABS: Alkaline Phosphatase 92 U/L (46-116); Anion Gap 13 (5-15); BUN/Creatinine Ratio 19.0 (10.0-20.0); Blood Urea Nitrogen 11 mg/dL (9-23); Calcium 10.3 mg/dL (8.7-10.4); Carbon Dioxide 22 mmol/L (20-31); Chloride 107 mmol/L (98-107); Potassium 4.0 mmol/L (3.5-5.1); Sodium 142 mmol/L (136-145)
[2025-03-08 06:40] LABS: Bilirubin, Total 0.7 mg/dL (0.2-1.0)
[2025-03-08 06:45] LABS: Alanine Aminotransferase 42 U/L (7-40); Albumin 5.0 g/dL (3.2-4.8); Glucose 123 mg/dL (74-106); Total Protein 8.3 g/dL (5.7-8.2)
--- NOTE | 2025-03-08 07:44 | DVHPN2 ---
Reviewed: Care Plan, H&P, Labs, Medications, Previous Orders, Radiology Changes from previous H/P or p: No Changes Eyes: No Pain, No Vision change, No Conjunctivae inflammation, No Eyelid inflammation, No Other, No Redness ENT: No Ear pain, No Ear discharge, No Nose pain, No Nose discharge, No Nose congestion, No Mouth pain, No Mouth swelling, No Throat pain, No Throat swelling, No Other Cardiovascular: No Chest Pain, No Palpitations, No Orthopnea, No Paroxysmal Noc. Dyspnea, No Edema, No Lt Headedness, No Other Respiratory: No Cough, No Dry; Shortness of breath, SOB with excertion, W heezing; No Hemoptysis, No Pleuritic Pain, No Sputum, No Other Gastrointestinal: No Nausea, No Vomiting, No Abdominal Pain, No Diarrhea, No Constipation, No Melena, No Hematochezia, No Other Genitourinary: No Dysuria, No Frequency, No Incontinence, No Hematuria, No Retention, No Other Musculoskeletal: No other, No neck pain, No shoulder pain, No arm pain, No back pain, No hand pain, No leg pain, No foot pain Skin: No Rash, No Lesions, No Jaundice, No Bruising, No Other Objective Vitals Vital Signs Date Time Temp Pulse Resp B/P (MAP) Pulse Ox O2 Delivery O2 Flow Rate FiO2 03/08/25 05:00 98.0 105 19 130/83 (99) 97 98.0 03/07/25 23:56 Room Air* 0 21 Intake/Output Intake and Output 03/08/25 07:00 Intake Total 1250 ml Balance 1250 ml Intake Oral 1250 ml # Voids 1 Medications Current Medications Medications Dose Ordered Sig/Sugar Route Start Time Stop Time Status Last Admin Dose Admin Acetaminophen/ Hydrocodone Bitart 1 tab Q4HP PRN PO 03/07/25 07:45 Ondansetron HCl 4 mg Q4HP PRN IV 03/07/25 07:45 03/08/25 02:44 4 MG Docusate Sodium 100 mg BIDPRN PRN PO 03/07/25 07:45 Acetaminophen 650 mg Q6HP PRN PO 03/07/25 07:45 Nitroglycerin 0.4 mg Q5MINP PRN SL 03/07/25 07:45 Morphine Sulfate 2 mg Q30M PRN IV 03/07/25 07:45 Loratadine 10 mg DAILY PO 03/07/25 10:00 03/07/25 11:15 10 MG Ipratropium Lytle 0.5 mg Q4HPRN PRN NEB 03/07/25 08:00 03/07/25 23:56 0.5 MG Albuterol 2.5 mg Q4HPRN PRN NEB 03/07/25 08:00 03/07/25 23:56 2.5 MG Methylprednisolone Sodium Succinate 40 mg BID IV 03/07/25 10:00 03/07/25 21:33 40 MG Metoprolol Tartrate 12.5 mg BID PO 03/07/25 10:00 03/07/25 21:34 12.5 MG Laboratory Results Laboratory Tests 03/08/25 05:17 Chemistry Test 03/08/25 05:17 Albumin 5.0 g/dL (3.2-4.8) H Calcium Level 10.3 mg/dL (8.7-10.4) Total Protein 8.3 g/dL (5.7-8.2) H LFT Test 03/08/25 05:17 Alanine Aminotransferase (ALT) 42 U/L (7-40) H Alkaline Phosphatase 92 U/L (46-116) Aspartate Amino Transferase (AST) 31 U/L (13-40) Total Bilirubin 0.7 mg/dL (0.2-1.0) Labs and/or images reviewed: Labs reviewed by me, Image(s) reviewed by me Assessment/Plan Assessment/Plan Acute asthma exacerbation, albuterol Atrovent Solu-Medrol Hypothyroidism, Hypertension, Dyspnea, Sinus tachycardia, Depression, Janee test negative Flu test negative Time spent 55 minutes Advanced care planning time 20 minutes Patient is full code Plan discussed with: Patient Date of Service: Mar 08, 2025 Billing Provider: RAMON SCRUGGS MD Common Visit Codes: [id number] INP/OBS CARE(HIGH) RAMON SCRUGGS MD Mar 08, 2025 07:44
[2025-03-08 08:00] VITALS: O2SAT 98
[2025-03-08] MEDS ORDERED: ALBUAER3 IN (08:03)
[2025-03-08] MEDS ORDERED: QUET300T24 PO (08:03)
[2025-03-08] MEDS ORDERED: ALPR1TAB2 PO (08:03)
[2025-03-08] MEDS ORDERED: LEVO500T91 PO (08:03)
--- NOTE | 2025-03-08 08:09 | DVHDS2 ---
Discharge Summary Date of Admission Mar 07, 2025 at 07:45 Date of Discharge: Mar 08, 2025 Admitting Diagnosis Asthma exacerbation Wounds: None Labs/Diagnostic Data: Laboratory Results Test 03/08/25 05:17 03/07/25 18:15 03/07/25 08:40 03/07/25 06:13 White Blood Count 7.0 10^3/uL (4.4-10.8) Red Blood Count 4.99 10^6/uL (4.0-5.20) Hemoglobin 16.0 g/dL (12.2-16.2) Hematocrit 46.8 % (36.0-46.0) Mean Corpuscular Volume 93.9 fL (80.0-100.0) Mean Corpuscular Hemoglobin 32.1 pg (28.0-32.0) Mean Corpuscular Hemoglobin Concent 34.2 g/dL (32.0-36.0) Red Cell Distribution Width 13.1 % (11.8-14.3) Platelet Count 218 10^3/uL (140-450) Mean Platelet Volume 8.5 fL (6.9-10.8) Neutrophils (%) (Auto) 81.7 % (37.0-80.0) Lymphocytes (%) (Auto) 16.1 % (10.0-50.0) Monocytes (%) (Auto) 2.1 % (0.0-12.0) Eosinophils (%) (Auto) 0.0 % (0.0-7.0) Basophils (%) (Auto) 0.1 % (0.0-2.0) Neutrophils # (Auto) 5.7 10 ^3/uL (1.6-8.6) Lymphocytes # (Auto) 1.1 10 ^3/uL (0.4-5.4) Monocytes # (Auto) 0.1 10 ^3/uL (0-1.3) Eosinophils # (Auto) 0 10 ^3/uL (0-0.8) Basophils # (Auto) 0 10 ^3/uL (0-0.2) Nucleated Red Blood Cells 0.0 % Sodium Level 142 mmol/L (136-145) Potassium Level 4.0 mmol/L (3.5-5.1) Chloride Level 107 mmol/L (98-107) Carbon Dioxide Level 22 mmol/L (20-31) Anion Gap 13 (5-15) Blood Urea Nitrogen 11 mg/dL (9-23) Creatinine 0.58 mg/dL (0.550-1.02) Glomerular Filtration Rate Calc 99 mL/min (>90) BUN/Creatinine Ratio 19.0 (10.0-20.0) Serum Glucose 123 mg/dL (74-106) Calcium Level 10.3 mg/dL (8.7-10.4) Total Bilirubin 0.7 mg/dL (0.2-1.0) Aspartate Amino Transferase (AST) 31 U/L (13-40) Alanine Aminotransferase (ALT) 42 U/L (7-40) Alkaline Phosphatase 92 U/L (46-116) Total Protein 8.3 g/dL (5.7-8.2) Albumin 5.0 g/dL (3.2-4.8) Influenza Type A Antigen Negative (Negative) Influenza Type B Antigen Negative (Negative) SARS-CoV-2 Antigen (Rapid) Negative (NEGATIVE) Free Thyroxine (T4) Calculated 1.42 ng/dL (0.89-1.76) Free Triiodothyronine (T3) pg/mL 3.09 pg/mL (2.3-4.2) Troponin I High Sensitivity < 3 ng/L (</=34) Thyroid Stimulating Hormone (TSH) 1.56 uIU/mL (0.55-4.78) Test 03/07/25 02:56 D-Dimer, Quantitative 0.33 mg/L FEU (0.0-0.49) B-Type Natriuretic Peptide 2.79 pg/mL (0-100) Other Laboratory Tests 03/08/25 05:17 Brief Hx & Hospital Course: 69-year-old female with a history of hypertension asthma hypothyroidism depression came in for exacerbation of asthma. Chest x-ray negative afebrile. Treated with albuterol Atrovent Solu-Medrol. Janee test negative flu test negative. The patient uses high dose of Seroquel 300 mg for depression requesting refill. At the time of discharge patient is afebrile stable vital signs on room air discharged home. Discharge plan discussed with the patient with the help of Panamanian test negative MAXI Araiza in the ER holding area Prescription sent to the pharmacy Consults/Reason for consult None Operations or Procedures None Condition at Discharge: Fair Final Diagnosis/Problems List Acute asthma exacerbation, albuterol Atrovent Solu-Medrol Hypothyroidism, Hypertension, Dyspnea, Sinus tachycardia, Depression, Janee test negative Flu test negative Discharge Disposition: Home Discharge Instruct/Medications Diet: Cardiac 2g Na,low cholest Activity: Light activity Follow Up/Referral: Resume all your previous home medications Follow up with the primary Dr and psychiatrist Medications: Leilani REAGAN Xanax Levaquin Transmitted to [facility] Scheduled Amlodipine Besylate (Amlodipine Besylate), 1 TAB PO DAILY, (Reported) Atorvastatin Calcium (Atorvastatin Calcium), 1 TAB PO HS, (Reported) Cephalexin Monohydrate (Cephalexin), 500 MG PO Q6HR Fluticasone Propionate (Nasal) (Fluticasone Propionate Na), 2 SPRAYS EACHNOSTRI DAILY, (Reported) Hydroxyzine Hcl (Hydroxyzine Hcl), 1 TAB PO TID, (Reported) Ibuprofen (Ibuprofen), 1 TAB PO BID, (Reported) Levofloxacin Hemihydrate (Levaquin 500 Mg), 1 TAB PO DAILY Levothyroxine Sodium (Levothyroxine Sodium), 1 TAB PO DAILY, (Reported) Loratadine (Claritin), 1 TAB PO DAILY, (Reported) Montelukast Sodium (Montelukast Sodium), 1 TAB PO DAILY, (Reported) Omeprazole (Omeprazole Dr), 1 CAP PO DAILY, (Reported) Pantoprazole Sodium Sesquihydr (Pantoprazole Sodium), 40 MG PO BID Quetiapine Fumerate (Quetiapine Fumarate), 1 TAB PO DAILY, (Reported) Quetiapine Fumerate (Quetiapine Fumarate), 300 MG PO DAILY Sulfamethoxazole W/Trimethopri (Bactrim Ds Tablet), 1 TAB PO BID Triamcinolone Acetonide (Kenalog), 1 APPLIC TOP TID, (Reported) Venlafaxine Hcl (Venlafaxine Hcl Er), 1 CAP PO QAM, (Reported) Scheduled PRN Albuterol Sulfate (Linda Sainii), 90 MCG IN QID PRN Alprazolam (Xanax), 1 TAB PO BID PRN Docusate Sodium (Docusate Sodium), 1 CAP PO BIDPRN PRN for constipation, (Reported) Lorazepam (Lorazepam), 1 TAB PO DAILYPRN PRN for ANXIETY, (Reported) Polyethylene Glycol 3350 ([id number]), 17 GM PO DAILY PRN for FOR CONSTIPATION, (Reported) Miscellaneous Medications Budesonide-Formoterol Fumarate (Budesonide/Formoterol Fum 80-4.5 Mcg/Act), 1 PUFF IN, (Reported) Discontinued Medications Atorvastatin Calcium (Atorvastatin Calcium), 40 MG PO HS, (Reported) Atorvastatin Calcium (Lipitor), 1 TAB PO QAM, (Reported) Levofloxacin Hemihydrate (Levaquin 500 Mg), 1 TAB PO DAILY Levothyroxine Sodium (Levothyroxine Sodium), 1 TAB PO DAILY, (Reported) Metronidazole (Flagyl), 1 TAB PO TID 35 (Time taken for discharge summary 35 minutes) Discharge Statement: "Patient was advised to return to the ER or call 911 if any headaches, dizziness, shortness of breath, chest pain, abdominal pain, bleeding, fevers, or worsening of medical condition. Patient was counseled about treatment plan, medications, possible side effects, patientverbalized understanding. All questions were answered to the best of my ability. This discharge took greater then 30 minutes in planning, reviewing documentation, counseling the patient, and discussing with other team members." ASSESSMENT ASSESSMENT Hospital Course Improved Assessment Acute asthma exacerbation, albuterol Atrovent Solu-Medrol Hypothyroidism, Hypertension, Dyspnea, Sinus tachycardia, Depression, Janee test negative Flu test negative Date of Service: Mar 08, 2025 Billing Provider: RAMON SCRUGGS MD Common Visit Codes: [id number] DISCH DAY >30min RAMON SCRUGGS MD Mar 08, 2025 08:09
[2025-03-08 08:57] VITALS: BP 124/80; PULSE 84; TEMP 36.7
[2025-03-08 09:00] VITALS: BP 130/87; PULSE 119; RESP 20; TEMP 98; O2SAT 98
[2025-03-08] MEDS: DOCUSATE SOD 100 MG CAP PO PRN (09:01)
== END 2025-03-08 09:20 | disposition home or self-care (01) | DRG 141 ==
LOC: ER 02:19 → EDBD 02:19 → OVERFLOW 07:45
PROVIDERS: ADMIT Family Medicine; ATTEND Family Medicine
DX: J45.901 Unspecified asthma with (acute) exacerbation (principal); E03.9 Hypothyroidism, unspecified; I10 Essential (primary) hypertension; F32.A Depression, unspecified; Z20.822 Contact with and (suspected) exposure to COVID-19; F41.9 Anxiety disorder, unspecified; Z90.49 Acquired absence of other specified parts of digestive tract; Z90.5 Acquired absence of kidney
CPT/HCPCS: 36415; 71045; 80053; 83880; 84439; 84443; 84481; 84484; 85025; 85379; 87426; 87804; 93005; 94640; G0378; J2405

== ENCOUNTER 2025-04-05 08:24 | Emergency (ER) | payer MEDICAID ==
[~2025-04-05] VITALS: Ht 154.9 cm; Wt 57.8 kg
[~2025-04-05 08:24] MED LIST changes: -LORA-1121 PO
[2025-04-05 09:07] VITALS: BP 143/97; RESP 18; TEMP 98.4; O2SAT 100
[2025-04-05 09:08] VITALS: PULSE 88
[2025-04-05 09:38] LABS: Hematocrit 47.1 % (36.0-46.0); Hemoglobin 16.2 g/dL (12.2-16.2); Mean Corpuscular Hemoglobin 32.0 pg (28.0-32.0); Mean Corpuscular Volume 93.0 fL (80.0-100.0); Nucleated Red Blood Cells % 0.0 %
[2025-04-05 09:42] LABS: Chloride 103 mmol/L (98-107); Potassium 3.9 mmol/L (3.5-5.1); Sodium 140 mmol/L (136-145)
[2025-04-05 09:42] LABS: Benzodiazephine Screen, Urine Pos (NEGATIVE)
[2025-04-05 09:43] LABS: Anion Gap 14 (5-15); Calcium 10.2 mg/dL (8.7-10.4); Carbon Dioxide 23 mmol/L (20-31)
[2025-04-05 09:44] LABS: Urine Budding Yeast OCCASIONAL /hpf (None Seen); Urine Protein, UAD TRACE (Negative)
[2025-04-05 09:45] LABS: Amphetamine Screen, Urine Neg (NEGATIVE); Barbiturate Scree,Urine Neg (NEGATIVE); Cannabinoid Screen, Urine Neg (NEGATIVE); Cocaine Screen, Urine Neg (NEGATIVE); Opiate Scree,Urine Neg (NEGATIVE); Phencyclidine Screen, Urine Neg (NEGATIVE)
[2025-04-05 09:48] LABS: BUN/Creatinine Ratio 12.6 (10.0-20.0); Blood Urea Nitrogen 11 mg/dL (9-23); Glucose 105 mg/dL (74-106)
[2025-04-05] MEDS ORDERED: LORA-1121 PO (10:06)
--- NOTE | 2025-04-05 10:07 | ED.PDOC ---
History of Present Illness HPI Comments A 69 YEAR OLD FEMALE PRESENTS TO THE ED WITH COMPLAINT OF ANXIETY. PATIENT STATES HE HAS BEEN EXPERIENCING ANXIETY OFF AND ON FOR THE PAST 2 MONTHS. PATIENT NOTES THAT SHE HAS BEEN TAKING HYDROXYZINE 25 MG FOR HER ANXIETY, BUT STATES THIS HAS NOT BEEN HELPING HER SYMPTOMS. PATIENT STATES SHE HAS BEEN EXPERIENCING SHAKINESS, INABILITY ASLEEP, AND INABILITY TO CALM HERSELF DOWN. PATIENT DENIES SI, HI, FEVER, CHILLS, SHORTNESS OF BREATH, CHEST PAIN, ABDOMINAL PAIN, NAUSEA, VOMITING, HEADACHE, OR OTHER COMPLAINTS. NO OTHER SYMPTOMS OR MODIFYING FACTORS AT THIS TIME. PATIENT IS ALERT, ORIENTED X 4, AND HAS STEADY GAIT. Chief Complaint: Anxiety Time Seen by MD: 08:30 Primary Care Provider: NONE Reviewed Notes: Nurses Notes, Medications, Allergies Allergies: Coded Allergies: NO KNOWN ALLERGIES (Unverified , 01/22/17) Home Meds Active Scripts Lorazepam (ATIVAN TABLET) 0.5 Mg Tb, 1 TAB PO BID, #14 TAB Prov:FERNIE OSUNA 04/05/25 Alprazolam (Xanax) 1 Mg Tab, 1 TAB PO BID PRN, #20 TAB Prov:RAMON SCRUGGS MD 03/08/25 Albuterol Sulfate (VENTOLIN MDI) 90 Mcg Ih, 90 MCG IN QID PRN, #1 INH Prov:RAMON SCRUGGS MD 03/08/25 Levofloxacin Hemihydrate (LEVAQUIN 500 MG) 500 Mg Tab, 1 TAB PO DAILY, #7 TAB Prov:RAMON SCRUGGS MD 03/08/25 Quetiapine Fumerate (QUETIAPINE FUMARATE) 300 Mg Tab, 300 MG PO DAILY, #15 TAB Prov:RAMON SCRUGGS MD 03/08/25 Sulfamethoxazole W/Trimethopri (Bactrim Ds Tablet) 1 Tab Tb, 1 TAB PO BID for 5 Days, #10 TAB 0 Refills Prov:YEMI SOSA NP 09/12/24 Cephalexin Monohydrate (Cephalexin) 500 Mg Cap, 500 MG PO Q6HR for 7 Days, #7 CAP Prov:FELIPA ALVAREZ MD 08/09/24 Pantoprazole Sodium Sesquihydr (Pantoprazole Sodium) 40 Mg Tab, 40 MG PO BID, #30 TAB Prov:RAMON SCRUGGS MD 03/29/24 Reported Medications Atorvastatin Calcium (ATORVASTATIN CALCIUM) 10 Mg Tab, 1 TAB PO HS 03/07/25 Levothyroxine Sodium (Levothyroxine Sodium) 50 Mcg Tab, 1 TAB PO DAILY 03/07/25 Polyethylene Glycol 3350 ([id number]) 17 Gm/Scoop Pow, 17 GM PO DAILY PRN for FOR CONSTIPATION for 30 Days, #510 03/27/24 Budesonide-Formoterol Fumarate (Budesonide/Formoterol Fum 80-4.5 Mcg/Act) 1 Aer Aer, 1 PUFF IN for 60 Days, #10.2 03/27/24 Triamcinolone Acetonide (Kenalog) 1 Applic Ap, 1 APPLIC TOP TID for 30 Days, #30 03/27/24 Ibuprofen (Ibuprofen) 400 Mg Tab, 1 TAB PO BID for 30 Days, #60 03/27/24 Loratadine (Claritin) 10 Mg Tab, 1 TAB PO DAILY for 30 Days, #30 03/27/24 Fluticasone Propionate (Nasal) (Fluticasone Propionate Na) 50 Mcg/Act Spr, 2 SPRAYS EACHNOSTRI DAILY for 30 Days, #16 03/27/24 Venlafaxine Hcl (Venlafaxine Hcl Er) 75 Mg Cap, 1 CAP PO QAM for 30 Days, #30 03/27/24 Quetiapine Fumerate (QUETIAPINE FUMARATE) 300 Mg Tab, 1 TAB PO DAILY for 30 Days, #30 03/27/24 Omeprazole (Omeprazole Dr) 40 Mg Cap, 1 CAP PO DAILY for 30 Days, #30 03/27/24 Docusate Sodium (Docusate Sodium) 100 Mg Cap, 1 CAP PO BIDPRN PRN for const ipation 03/27/24 Montelukast Sodium (MONTELUKAST SODIUM) 10 Mg Tab, 1 TAB PO DAILY for allergies 12/18/23 Lorazepam (Lorazepam) 1 Mg Tab, 1 TAB PO DAILYPRN PRN for ANXIETY 12/18/23 Amlodipine Besylate (Amlodipine Besylate) 2.5 Mg Tab, 1 TAB PO DAILY 12/18/23 Hydroxyzine Hcl (Hydroxyzine Hcl) 50 Mg Tab, 1 TAB PO TID 12/18/23 Information Source: Patient Mode of Arrival: Ambulatory Severity: Moderate Timing: Months Duration: Since onset Prehospital treatment: None Medication Refill: For: Other (ANXIETY) Past Medical History PAST MEDICAL HISTORY: Anxiety, Asthma, Depression, HTN, UTI'S Surgical History: Cholecystectomy ZYGLO INSPECTOR History: No Pertinent ZYGLO INSPECTOR History Family History Family History: Reviewed,noncontributory to illness Social History Smoker: Non-Smoker Alcohol: Denies ETOH Use Drugs: Denies Drug Use Lives In: Home Constitutional: reports: others (ANXIETY ); denies: chills, diaphoresis, fatigue, fever, malaise, sweats, weakness EENTM: denies: blurred vision, double vision, ear bleeding, ear discharge, ear drainage, ear pain, ear ringing, eye pain, eye redness, hearing loss, mouth pain, mouth swelling, nasal discharge, nose bleeding, nose congestion, nose pain, photophobia, tearing, throat pain, throat swelling, voice changes, others Respiratory: denies: cough, hemoptysis, orthopnea, SOB at rest, shortness of breath, SOB with excertion, stridor, wheezing, others Cardiovascular: denies: chest pain, dizzy spells, diaphoresis, Dyspnea on exertion, edema, irregular heart beat, left arm pain, lightheadedness, palpitations, PND, syncope, others Gastrointestinal: denies: abdomen distended, abdominal pain, blood streaked bowels, constipated, diarrhea, dysphagia, difficulty swallowing, hematemesis, melena, nausea, poor appetite, poor fluid intake, rectal bleeding, rectal pain, vomiting, others Genitourinary: denies: abnormal vagina bleeding, burning, dyspareunia, dysuria, flank pain, frequency, hematuria, incontinence, pain, , vagina discharge, urgency, others Neurological: reports: tingling; denies: dizziness, fainting, headache, left sided numbness, left sided weakness, numbness, paresthesia, pre-existing deficit, right sided numbness, right sided weakness, seizure, speech problems, tremors, weakness, others Musculoskeletal: denies: back pain, gout, joint pain, joint swelling, muscle pain, muscle stiffness, neck pain, others Integumetry: denies: bruises, change in color, change in hair/nails, dryness, laceration, lesions, lumps, rash, wounds, others Allergic/Immunocompromised: denies: Difficulty Healing, Frequent Infections, Hives, Itching, others Hematologic/Lymphatic: denies: anemia, blood clots, easy bleeding, easy bruising, swollen glands, others Endocrine: denies: excessive hunger, excessive sweating, excessive thirst, excessive urination, flushing, intolerance to cold, intolerance to heat, unexplained weight gain, unexplained weight loss, others Psychiatric: reports: anxiety; denies: bipolar disorder, depression, hopeless, panic disorder, schizophrenia, sleepless, suicidal, others All Other Systems: Reviewed and Negative Physical Exam General Appearance: Mild Distress, Normal, Other (ANXIOUS AND ANXIETY ) HEENT: Normal ENT Inspection, PERRL/EOMI, Pharynx Normal, TMs Normal Neck: Full Range of Motion, Non-Tender, Normal, Normal Inspection Respiratory: Chest Non-Tender, Lungs Clear, No Accessory Muscle Use, No Respiratory Distress, Normal Breath Sounds Cardiovascular: No Edema, No JVD, No Murmur, No Gallop, Normal Peripheral Pulses, Regular Rate/Rhythm Breast Exam: Deferred Gastrointestinal: No Organomegaly, Non Tender, No Pulsatile Mass, Normal Bowel Sounds, Soft Genitalia: Deferred Pelvic: Deferred Rectal: Deferred Extremities: No calf tenderness, Normal capillary refill, Normal inspection, Normal range of motion, Non-tender, No pedal edema Musculoskeletal : Apperance: Normal Neurologic: Alert, grade recorder II-XII nml as Tested, No Motor Deficits, Normal Affect, Normal Mood, No Sensory Deficits Cerebellar Function: Normal Reflexes: Normal Skin: Dry, Normal Color, Warm Peripheral Pulses: 2+ carotid (R), 2+ carotid (L) Lymphatic: No Adenopathy Was a procedure done? Was a procedure done?: No Differential Dx Considerations may include: ANXIETY REACTION, HYPERVENTILATION SYNDROME, WELL CHECK, HYPOTHYROIDISM, OK, DEHYDRATION, ELECTROLYTE IMBALANCE X-Ray, Labs, Meds, VS Vital Signs Date Time Temp Pulse Resp B/P (MAP) Pulse Ox O2 Delivery O2 Flow Rate FiO2 04/05/25 09:08 88 04/05/25 09:07 98.4 90 18 143/97 (112) 100 98.4 04/05/25 09:07 90 18 100 Room Air 04/05/25 08:26 97.4 90 18 143/97 100 97.4 Lab Test 04/05/25 09:12 04/05/25 09:03 Range/Units White Blood Count 6.4 4.4-10.8 10^3/uL Red Blood Count 5.06 4.0-5.20 10^6/uL Hemoglobin 16.2 12.2-16.2 g/dL Hematocrit 47.1 H 36.0-46.0 % Mean Corpuscular Volume 93.0 80.0-100.0 fL Mean Corpuscular Hemoglobin 32.0 28.0-32.0 pg Mean Corpuscular Hemoglobin Concent 34.4 32.0-36.0 g/dL Red Cell Distribution Width 13.7 11.8-14.3 % Platelet Count 284 140-450 10^3/uL Mean Platelet Volume 7.7 6.9-10.8 fL Neutrophils (%) (Auto) 70.3 37.0-80.0 % Lymphocytes (%) (Auto) 22.9 10.0-50.0 % Monocytes (%) (Auto) 5.9 0.0-12.0 % Eosinophils (%) (Auto) 0.5 0.0-7.0 % Basophils (%) (Auto) 0.4 0.0-2.0 % Neutrophils # (Auto) 4.5 1.6-8.6 10 ^3/uL Lymphocytes # (Auto) 1.5 0.4-5.4 10 ^3/uL Monocytes # (Auto) 0.4 0-1.3 10 ^3/uL Eosinophils # (Auto) 0 0-0.8 10 ^3/uL Basophils # (Auto) 0 0-0.2 10 ^3/uL Nucleated Red Blood Cells 0.0 % Sodium Level 140 136-145 mmol/L Potassium Level 3.9 3.5-5.1 mmol/L Chloride Level 103 98-107 mmol/L Carbon Dioxide Level 23 20-31 mmol/L Anion Gap 14 5-15 Blood Urea Nitrogen 11 9-23 mg/dL Creatinine 0.87 0.550-1.02 mg/dL Glomerular Filtration Rate Calc 73 >90 mL/min BUN/Creatinine Ratio 12.6 10.0-20.0 Serum Glucose 105 74-106 mg/dL Calcium Level 10.2 8.7-10.4 mg/dL Troponin I High Sensitivity < 3 L </=34 ng/L Thyroid Stimulating Hormone (TSH) 1.76 0.55-4.78 uIU/mL Urine Color Yellow Yellow Urine Clarity Clear Clear Urine pH 6.5 5.0-9.0 Urine Specific [place] 1.020 1.001-1.035 Urine Protein Trace H Negative Urine Ketones 2+ H Negative Urine Blood 2+ H Negative /uL Urine Nitrite Negative Negative Urine Bilirubin Negative Negative Urine Urobilinogen 2 H Negative mg/dL Urine Leukocyte Esterase 3+ Negative /uL Urine RBC 27 0 - 4 /hpf Urine Microscopic WBC 14 H 0-5 /HPF Urine Squamous Epithelial Cells Few <5 /hpf Urine Bacteria None seen None Seen /hpf Urine Hyaline Casts Few 0 - 2 /lpf Urine Mucus Few None Seen Urine Yeast (Budding) Occasional None Seen /hpf Urine Glucose Normal Normal mg/dL Urine Opiates Screen Neg NEGATIVE Urine Fentanyl Screen Neg NEGATIVE Urine Barbiturates Screen Neg NEGATIVE Urine Phencyclidine Screen Neg NEGATIVE Urine Amphetamines Screen Neg NEGATIVE Urine Benzodiazepines Screen Pos NEGATIVE Urine Cocaine Screen Neg NEGATIVE Urine Cannabinoids Screen Neg NEGATIVE X-Ray, Labs, Meds, VS Comment EXTERNAL MEDICAL RECORDS REVIEWED: [NONE] INDEPENDENT HISTORIANS: [NONE] SOCIAL DETERMINANTS OF HEALTH: [NONE] LABS ORDERED: CBC, BMP, UA, TSH, TROPONIN, UDS REVIEWED AND INTERPRETED RESULTS: LEUKOCYTES 3+, BENZODIAZEPINE POSITIVE IMAGING ORDERED: NONE TREATMENTS ORDERED: NONE PROCEDURES PERFORMED: NONE CRITICAL CARE TIME: NONE I HAVE DISCUSSED THE PATIENT WITH THE ATTENDING PHYSICIAN DR. RIBERA AND HE AGREES WITH THE PATIENT'S PLAN OF CARE AND DISPOSITION. BASED ON HISTORY OF PRESENT ILLNESS, AND PHYSICAL EXAM, PATIENT WILL BE DISCHARGED HOME. DISCUSSED PLAN FOR DISCHARGE HOME WITH RX [ATIVAN 0.5 MG]. MEDICATION WARNINGS GIVEN. SHARED DECISION MAKING: PATIENT INSTRUCTED TO FOLLOW UP WITH PRIMARY CARE PROVIDER IN 1-2 DAYS FOR RE-EVALUATION OF SYMPTOMS. PATIENT VERBALIZES UNDERSTANDING TO RETURN TO ED FOR NEW OR WORSENING SYMPTOMS OR IF FOLLOW UP WITH PCP CANNOT BE OBTAINED. PATIENT FEELS COMFORTABLE GOING HOME AT THIS TIME. ALL QUESTIONS ADDRESSED AT TIME OF DISCHARGE. Time of 1ST Reevaluation: 10:10 Reevaluation 1ST: Improved Patient Education/Counseling: Diagnosis, Treatment, Need For Follow Up Family Education/Counseling: Diagnosis, Treatment, Need For Follow Up Medical Screening: No EMC Exist At This Time SEPSIS Sepsis Screen Date sepsis recognized/suspect: Apr 05, 2025 Time Sepsis recognized/suspect: 827 Recent Procedure: No On Antibiotic Therapy: No Respiratory Rate >20: No Heart Rate >90: Yes Temp<36 C (96.8 F) or >38.3 C: No SBP <90 or MAP <65 mmHG: No New Acute Mental Status Change: No Is the patient on CPAP, BIPAP,: No Physician Orders Electrocardigram (04/05/25 09:03) Vital Signs Date Time Temp Pulse Resp B/P (MAP) Pulse Ox O2 Delivery O2 Flow Rate FiO2 04/05/25 09:08 88 04/05/25 09:07 98.4 90 18 143/97 (112) 100 98.4 04/05/25 09:07 90 18 100 Room Air 04/05/25 08:26 97.4 90 18 143/97 100 97.4 Laboratory Tests Test 04/05/25 09:12 White Blood Count 6.4 10^3/uL (4.4-10.8) Departure 1 Departure Time of Disposition: 10:10 Impression: Primary Impression: Anxiety reaction Disposition: 01 HOME / SELF CARE / HOMELESS Condition: Stable Additional Instructions: F/U PCP IN 2 DAYS RECHECK. IF CONDITION BECOME WORSE, RETURN TO ED [facility]AD[facility]. e-Prescriptions Lorazepam (ATIVAN TABLET) 0.5 Mg Tb 1 TAB PO BID, #14 TAB Prov: FERNIE OSUNA 04/05/25 Discharged With: Self, Spouse Critical Care Note Critical Care Time?: No Stability Stability form required: No I personally scribed for FERNIE OSUNA ([email or web address]) on 04/05/25 at 16:00. Electronically submitted by Glenn Riley ([email or web address]). FERNIE OSUNA Apr 05, 2025 10:07
--- NOTE | 2025-04-09 12:12 | ECG ---
[facility] Test Date: 2025-04-05 Test Time: 09:08:26 Pat Name: PATRIZIA HOUSTON Department: Room: Gender: F Trial Manager: CARMEN : 1955 Requested By: FERNIE OSUNA Order Number: [id number] Reading MD: Braxton Feliciano Measurements Intervals [place] Rate: 88 P: 72 [place]: 135 QRS: 54 QRSD: 93 T: 25 QT: 404 QTc: 489 Interpretive Statements Sinus rhythm Low voltage, precordial leads Minimal ST depression, diffuse leads Borderline prolonged QT interval Electronically Signed On 04-09-2025 15:21:03 PST by Braxton Feliciano Please click the below link to view image of tracing.
== END 2025-04-05 10:12 | disposition home or self-care (01) ==
LOC: ER 08:24
DX: F41.1 Generalized anxiety disorder (principal); J45.909 Unspecified asthma, uncomplicated; F32.A Depression, unspecified; I10 Essential (primary) hypertension; Z79.890 Hormone replacement therapy; Z90.49 Acquired absence of other specified parts of digestive tract; Z87.440 Personal history of urinary (tract) infections; Z79.899 Other long term (current) drug therapy
CPT/HCPCS: 36415; 80048; 80307; 81001; 84443; 84484; 85025; 93005

== ENCOUNTER → 2025-04-05 | Outpatient (CLI) | payer MEDICAID ==
[~2025-04-05] MED LIST changes: +ALBUAER3 IN; +ALPR1TAB2 PO; -ATOR10TA PO; +ATOR10TA52 PO; -ATOR40TA52 PO; -LEVO25TA6 PO; +LEVO50TA7 PO; +LORA-1121 PO; -METR-344 PO
[2025-04-05 11:00] LABS: Hematocrit 49.0 % (36.0-46.0); Hemoglobin 16.4 g/dL (12.2-16.2); Mean Corpuscular Hemoglobin 31.5 pg (28.0-32.0); Mean Corpuscular Volume 94.0 fL (80.0-100.0); Nucleated Red Blood Cells % 0.0 %
[2025-04-05 11:25] LABS: Anion Gap 15 (5-15); BUN/Creatinine Ratio 14.0 (10.0-20.0); Bilirubin, Total 1.1 mg/dL (0.2-1.0); Blood Urea Nitrogen 12 mg/dL (9-23); Calcium 10.3 mg/dL (8.7-10.4); Carbon Dioxide 23 mmol/L (20-31); Chloride 102 mmol/L (98-107); Glucose 105 mg/dL (74-106); Potassium 3.8 mmol/L (3.5-5.1); Sodium 140 mmol/L (136-145); Triglycerides 145 mg/dL (< 150)
[2025-04-05 11:26] LABS: Alanine Aminotransferase 51 U/L (7-40); Albumin 5.1 g/dL (3.2-4.8); Alkaline Phosphatase 133 U/L (46-116); Cholesterol 242 mg/dL (< 200); HDL Cholesterol 65 mg/dL (40-59); Total Protein 8.5 g/dL (5.7-8.2)
== END | disposition home or self-care (01) ==
LOC: LAB 10:28
PROVIDERS: ATTEND Nurse Practitioner Family
DX: E11.9 Type 2 diabetes mellitus without complications (principal); E03.9 Hypothyroidism, unspecified; Z00.01 Encounter for general adult medical examination with abnormal findings; Z79.899 Other long term (current) drug therapy
CPT/HCPCS: 36415; 80053; 80061; 82043; 82306; 82570; 83036; 84439; 84443; 85025